=== PATIENT | male | born 1995 | race African-American/Black ===

== ENCOUNTER 2023-07-06 16:22 | Inpatient (IN) ==
[2023-07-06 20:25] LABS: Appearance Urine Clear (Clear); Bilirubin Urine Negative (Negative); Blood Urine Negative (Negative); Color Urine Dark Yellow; Glucose Urine UA Negative (Negative); Ketones Urine Negative (Negative); Leukocyte Esterase Urine Negative (Negative); Nitrite Urine Negative (Negative); Protein Urine Negative (Negative); Urobilinogen Urine Positive (Negative)
[2023-07-06 20:26] LABS: Basophils # (auto) 0.05 K/uL (0.00-0.20); Basophils % (auto) 0.5 %; Eosinophils # (auto) 0.37 K/uL (0.00-0.50); Eosinophils % (auto) 3.7 %; Hematocrit (blood only) 24.7 % (42.0-52.0); Hemoglobin 9.1 g/dl (14.0-18.0); Immature Granulocytes # (auto) 0.05 K/uL (0.01-0.20); Immature Granulocytes % (auto) 0.5 %; Lymphocytes % (auto) 39.3 %; Mean Corpuscular Hemoglobin 38.1 pg (25.0-34.0); Mean Corpuscular Hgb Conc 36.8 g/dL (32.0-36.0); Mean Corpuscular Volume 103.3 fL (80.0-100.0); Mean Platelet Volume 10.8 fL (9.4-12.4); Monocytes # (auto) 1.05 K/uL (0.11-0.59); Monocytes % (auto) 10.6 %; Neutrophils % (auto) 45.4 %; Nucleated RBC # (auto) 0.28 K/uL (0.00-0.12); Nucleated RBC % (auto) 2.8 %; Platelet Count 361 K/uL (130-400); RDW Coefficient of Variation 20.2 % (11.5-14.5); RDW Standard Deviation 73.9 fL (36.4-46.3); Red Blood Count 2.39 M/uL (4.70-6.10); White Blood Count 9.92 K/ul (4.8-10.8)
[2023-07-06 20:34] LABS: Alanine Aminotransferase 29 U/L (7-52); Albumin Globulin Ratio 1.6 (0.9-2); Albumin Level 4.4 gm/dl (3.4-5.0); Alkaline Phosphatase 65 U/L (34-104); Anion Gap 7 (3-11); Aspartate Aminotransferase 32 U/L (13-39); BUN Creatinine Ratio 12.3 (10-20); Bilirubin,Total 14.7 mg/dl (0.2-1.0); Blood Urea Nitrogen 8 mg/dl (6-23); Calcium 9.2 mg/dl (8.6-10.3); Carbon Dioxide 24 mmol/L (21-32); Chloride 108 mmol/L (98-107); Creatinine Clr Calc Pharmacy 158.4 ml/min; Est GFR (African American) > 150.0 ml/min; Est GFR (Non-African American) 132.4 ml/min; Globulin 2.7 gm/dl (2.5-4.0); Glucose 102 mg/dl (70-99(Fasting)); Potassium 3.9 mmol/L (3.5-5.1); Sodium 139 mmol/L (136-145); Total Protein 7.1 gm/dl (6.0-8.3)
[2023-07-06 20:50] LABS: Anisocytosis Present; Basophilic Stippling 1+; Polychromasia 1+; Sickle Cells 3+; Target Cells 1+
[2023-07-06] MEDS ORDERED: NICOTINE 21 MG/24 HR TDSY TD STA (21:53)
[2023-07-06] MEDS ORDERED: SODIUM CHLORIDE 0.9% 1000ML 1,000 ML IV SCH (22:00)
--- NOTE | 2023-07-06 22:04 | Emergency Department Note ---
History of Present Illness General Chief complaint: Headache Stated complaint: HEADACHE Time Seen by Provider: 07/06/23 21:43 History of Present Illness This is a 27-year-old male presenting to the emergency department for evaluation of likely seizure episode. Patient had a witnessed event by his girlfriend whe re he pulled into a contractured position, and reportedly his eyes rolled back into his head. This lasted for several minutes and girlfriend contacted 911. For EMS the patient was postictal, and slowly returned to normal mental status after 15 to 20 minutes. Patient does not have a history of seizures, but does have a history of at least sickle cell trait. He has been seen several times this week in the ER after a very low mechanism head injury and possible concussion. Patient has not had fevers or chills. No significant chest pain, chest tightness, shortness of breath, or abdominal pain. He did not bite his tongue or urinate himself. He does not take medication on a regular basis. Patient has had headache symptoms over the past week and has been evaluated multiple times in this department for this. Earlier evaluation does include imaging including MRI without acute process. Home Medications Medication Instructions Recorded Confirmed Type No Known Home Medications 06/28/23 07/07/23 History Allergies Allergy/AdvReac Type Severity Reaction Status Date / Time No Known Allergies Allergy Verified 07/07/23 01:39 Past Med/Surg History Medical History Sickle cell disease Surgical History No pertinent past surgical history Social History Smoking Status: Current every day smoker Tobacco Type: E-cigarettes / Vaping Preferred Language: Lithuanian Feels Safe at Home: Yes Review of Systems A total of 10 systems reviewed and were otherwise negative Physical Exam Vital Signs Vital Signs - 24 hr 07/06/23 16:29 07/06/23 16:50 07/06/23 16:50 Temperature 36.9 C 36.9 C Temperature Source Oral Oral Pulse Rate 72 65 Pulse Rate [Right Finger] 65 Pulse Rate from SpO2 Sensor Pulse Rhythm Regular Pulse Rhythm [Right Finger] Regular Pulse Strength Normal Pulse Strength [Right Finger] Normal Respiratory Rate 16 16 Respiratory Effort / Characteristics Non-Labored Spontaneous Non-Labored Spontaneous Respiratory Depth Normal Normal Respiratory Pattern Regular Regular Blood Pressure 148/63 H Blood Pressure [Right Arm] 148/63 H Blood Pressure Mean 91 Blood Pressure Mean [Right Arm] 91 Blood Pressure Position Lying Blood Pressure Position [Right Arm] Semi-fowlers Pulse Oximetry 95 95 Oxygen Delivery Method Room Air Room Air Sepsis Recent Fever Within 48 Hours No Sepsis New/Unexplained Change in Mental Status No Sepsis Action Taken by Nursing No Action Required 07/06/23 20:06 07/06/23 20:25 07/06/23 22:00 Temperature 36.7 C 36.7 C Temperature Source Oral Oral Pulse Rate 59 L Pulse Rate [Right Finger] 75 75 Pulse Rate from SpO2 Sensor Pulse Rhythm Pulse Rhythm [Right Finger] Regular Regular Pulse Strength Pulse Strength [Right Finger] Normal Normal Respiratory Rate 18 18 Respiratory Effort / Characteristics Non-Labored Spontaneous Non-Labored Spontaneous Respiratory Depth Normal Normal Respiratory Pattern Regular Regular Blood Pressure Blood Pressure [Right Arm] 132/72 145/76 H Blood Pressure Mean Blood Pressure Mean [Right Arm] 92 99 Blood Pressure Position Blood Pressure Position [Right Arm] Semi-fowlers Semi-fowlers Pulse Oximetry 98 98 Oxygen Delivery Method Room Air Room Air Sepsis Recent Fever Within 48 Hours Sepsis New/Unexplained Change in Mental Status Sepsis Action Taken by Nursing 07/07/23 00:18 07/06/23 16:30 07/06/23 17:00 Temperature Temperature Source Pulse Rate 64 76 Pulse Rate [Right Finger] Pulse Rate from SpO2 Sensor 76 Pulse Rhythm Pulse Rhythm [Right Finger] Pulse Strength Pulse Strength [Right Finger] Respiratory Rate 16 Respiratory Effort / Characteristics Respiratory Depth Respiratory Pattern Blood Pressure 120/75 Blood Pressure [Right Arm] Blood Pressure Mean 78 Blood Pressure Mean [Right Arm] Blood Pressure Position Blood Pressure Position [Right Arm] Pulse Oximetry 96 Oxygen Delivery Method Sepsis Recent Fever Within 48 Hours Sepsis New/Unexplained Change in Mental Status Sepsis Action Taken by Nursing 07/06/23 17:00 07/06/23 17:30 07/06/23 18:00 Temperature Temperature Source Pulse Rate 64 66 Pulse Rate [Right Finger] Pulse Rate from SpO2 Sensor 66 66 Pulse Rhythm Pulse Rhythm [Right Finger] Pulse Strength Pulse Strength [Right Finger] Respiratory Rate 18 19 Respiratory Effort / Characteristics Respiratory Depth Respiratory Pattern Blood Pressure 122/58 L Blood Pressure [Right Arm] Blood Pressure Mean 75 Blood Pressure Mean [Right Arm] Blood Pressure Position Blood Pressure Position [Right Arm] Pulse Oximetry 96 94 Oxygen Delivery Method Sepsis Recent Fever Within 48 Hours Sepsis New/Unexplained Change in Mental Status Sepsis Action Taken by Nursing 07/06/23 18:00 07/06/23 18:00 07/06/23 18:30 Temperature Temperature Source Pulse Rate 61 62 Pulse Rate [Right Finger] Pulse Rate from SpO2 Sensor 61 62 Pulse Rhythm Pulse Rhythm [Right Finger] Pulse Strength Pulse Strength [Right Finger] Respiratory Rate 26 H 19 Respiratory Effort / Characteristics Respiratory Depth Respiratory Pattern Blood Pressure 122/58 L Blood Pressure [Right Arm] Blood Pressure Mean 75 Blood Pressure Mean [Right Arm] Blood Pressure Position Blood Pressure Position [Right Arm] Pulse Oximetry 93 95 Oxygen Delivery Method Sepsis Recent Fever Within 48 Hours Sepsis New/Unexplained Change in Mental Status Sepsis Action Taken by Nursing 07/06/23 19:00 07/06/23 19:00 07/06/23 19:30 Temperature Temperature Source Pulse Rate 60 61 Pulse Rate [Right Finger] Pulse Rate from SpO2 Sensor 62 60 Pulse Rhythm Pulse Rhythm [Right Finger] Pulse Strength Pulse Strength [Right Finger] Respiratory Rate 19 23 Respiratory Effort / Characteristics Respiratory Depth Respiratory Pattern Blood Pressure 113/64 Blood Pressure [Right Arm] Blood Pressure Mean 77 Blood Pressure Mean [Right Arm] Blood Pressure Position Blood Pressure Position [Right Arm] Pulse Oximetry 95 95 Oxygen Delivery Method Sepsis Recent Fever Within 48 Hours Sepsis New/Unexplained Change in Mental Status Sepsis Action Taken by Nursing 07/06/23 20:00 07/06/23 20:00 07/06/23 20:30 Temperature Temperature Source Pulse Rate 58 L 59 L Pulse Rate [Right Finger] Pulse Rate from SpO2 Sensor 57 L 61 Pulse Rhythm Pulse Rhythm [Right Finger] Pulse Strength Pulse Strength [Right Finger] Respiratory Rate 20 17 Respiratory Effort / Characteristics Respiratory Depth Respiratory Pattern Blood Pressure 125/61 Blood Pressure [Right Arm] Blood Pressure Mean 84 Blood Pressure Mean [Right Arm] Blood Pressure Position Blood Pressure Position [Right Arm] Pulse Oximetry 94 96 Oxygen Delivery Method Sepsis Recent Fever Within 48 Hours Sepsis New/Unexplained Change in Mental Status Sepsis Action Taken by Nursing 07/06/23 21:00 07/06/23 21:00 07/06/23 21:30 Temperature Temperature Source Pulse Rate 56 L 72 Pulse Rate [Right Finger] Pulse Rate from SpO2 Sensor 56 L 69 Pulse Rhythm Pulse Rhythm [Right Finger] Pulse Strength Pulse Strength [Right Finger] Respiratory Rate 19 20 Respiratory Effort / Characteristics Respiratory Depth Respiratory Pattern Blood Pressure 104/58 L Blood Pressure [Right Arm] Blood Pressure Mean 68 Blood Pressure Mean [Right Arm] Blood Pressure Position Blood Pressure Position [Right Arm] Pulse Oximetry 94 92 Oxygen Delivery Method Sepsis Recent Fever Within 48 Hours Sepsis New/Unexplained Change in Mental Status Sepsis Action Taken by Nursing 07/06/23 22:00 07/06/23 22:00 07/06/23 22:30 Temperature Temperature Source Pulse Rate 55 L 59 L Pulse Rate [Right Finger] Pulse Rate from SpO2 Sensor 56 L 59 L Pulse Rhythm Pulse Rhythm [Right Finger] Pulse Strength Pulse Strength [Right Finger] Respiratory Rate 10 L 13 Respiratory Effort / Characteristics Respiratory Depth Respiratory Pattern Blood Pressure 145/78 H Blood Pressure [Right Arm] Blood Pressure Mean 100 Blood Pressure Mean [Right Arm] Blood Pressure Position Blood Pressure Position [Right Arm] Pulse Oximetry 97 99 Oxygen Delivery Method Sepsis Recent Fever Within 48 Hours Sepsis New/Unexplained Change in Mental Status Sepsis Action Taken by Nursing 07/06/23 23:00 07/06/23 23:15 07/06/23 23:15 Temperature Temperature Source Pulse Rate 61 66 Pulse Rate [Right Finger] Pulse Rate from SpO2 Sensor 61 Pulse Rhythm Pulse Rhythm [Right Finger] Pulse Strength Pulse Strength [Right Finger] Respiratory Rate 18 14 Respiratory Effort / Characteristics Respiratory Depth Respiratory Pattern Blood Pressure 140/48 L Blood Pressure [Right Arm] Blood Pressure Mean 76 Blood Pressure Mean [Right Arm] Blood Pressure Position Blood Pressure Position [Right Arm] Pulse Oximetry 97 Oxygen Delivery Method Sepsis Recent Fever Within 48 Hours Sepsis New/Unexplained Change in Mental Status Sepsis Action Taken by Nursing 07/06/23 23:30 07/07/23 00:00 07/07/23 00:04 Temperature Temperature Source Pulse Rate 65 66 69 Pulse Rate [Right Finger] Pulse Rate from SpO2 Sensor 70 62 66 Pulse Rhythm Pulse Rhythm [Right Finger] Pulse Strength Pulse Strength [Right Finger] Respiratory Rate 14 19 18 Respiratory Effort / Characteristics Respiratory Depth Respiratory Pattern Blood Pressure Blood Pressure [Right Arm] Blood Pressure Mean Blood Pressure Mean [Right Arm] Blood Pressure Position Blood Pressure Position [Right Arm] Pulse Oximetry 97 93 91 Oxygen Delivery Method Sepsis Recent Fever Within 48 Hours Sepsis New/Unexplained Change in Mental Status Sepsis Action Taken by Nursing 07/07/23 00:04 07/07/23 00:30 Temperature Temperature Source Pulse Rate 68 Pulse Rate [Right Finger] Pulse Rate from SpO2 Sensor 67 Pulse Rhythm Pulse Rhythm [Right Finger] Pulse Strength Pulse Strength [Right Finger] Respiratory Rate 28 H Respiratory Effort / Characteristics Respiratory Depth Respiratory Pattern Blood Pressure 113/71 Blood Pressure [Right Arm] Blood Pressure Mean 82 Blood Pressure Mean [Right Arm] Blood Pressure Position Blood Pressure Position [Right Arm] Pulse Oximetry 96 Oxygen Delivery Method Sepsis Recent Fever Within 48 Hours Sepsis New/Unexplained Change in Mental Status Sepsis Action Taken by Nursing VITALS: Vitals are noted on the nurse's note and reviewed by myself. Vital signs stable. GENERAL: Well-developed, well-nourished, black male, who is in no acute distress and resting comfortably. Patient is cooperative with the examination. HEAD: Normocephalic atraumatic. EARS: External ear normal. External auditory canals clear, tympanic membranes pearly storey without erythema or effusion bilaterally. EYES: Pupils equal round and reactive to light and accommodation. Conjunctivae with scleral icterus NOSE: Patent, turbinates without inflammation or discharge. MOUTH: Mucous membranes moist. Tonsils are not enlarged. Pharynx without erythema, blood, or exudate. Uvula midline. Airway patent. NECK: Supple without nuchal rigidity. No lymphadenopathy. No thyromegaly. Cervical spine is nontender. HEART: Regular rate and rhythm without murmurs gallops or rubs. LUNGS: Clear to auscultation bilaterally without wheezes, rales or rhonchi. No retractions or accessory muscle use. ABDOMEN: Positive normal bowel sounds x 4. Soft, nontender, without masses or organomegaly. No guarding or rebound tenderness. MUSCULOSKELETAL: No muscle atrophy, erythema, or edema noted. Full range of motion in all extremities. NEURO: Patient was alert and oriented to person place and time. CN II through XII grossly intact. GCS 15. Course Administered Medications Discontinued Medications Sodium Chloride (Nss 1000ml) 1,000 mls @ 999 mls/hr IV .[id number] AMADO Stop: 07/06/23 23:00 Last Infusion: 07/07/23 00:31 Dose: 0 mls/hr Documented By: Admin: 07/06/23 22:24 Dose: 999 mls/hr Documented By: MOLLY Ioversol (Ioversol 350 Mg 125ml Prefilled Syringe) 125 ml IV ONCE ONE Stop: 07/06/23 22:47 Last Admin: 07/06/23 22:47 Dose: 117 ml Documented By: ROSEMARY Nicotine (Nicotine 21 Mg/24 Hr Tdsy) 21 mg TD NOW STA Stop: 07/06/23 21:54 Last Admin: 07/06/23 22:24 Dose: 21 mg Documented By: MOLLY Medical Decision Making Differential Diagnosis Differential diagnosis: Etiologies such as seizure, stroke, substance abuse, sickle cell crisis, vasovagal event, infection, anemia, hypoglycemia, hypovolemia, electrolyte abnormalities, dysrhythmias, cardiac ischemia, cardiac tamponade, valvular heart disease, structural heart disease, seizure, vascular stenosis/dissection, pulmonary embolism, intracerebral event, toxicological process, neurologic event, as well as others were entertained. Laboratory Data 07/06/23 16:35 07/06/23 16:35 Lab Results 07/06/23 07/06/23 07/06/23 Range/Units 16:35 16:35 18:34 WBC 9.92 (4.8-10.8) K/ul RBC 2.39 L (4.70-6.10) M/uL Hgb 9.1 L (14.0-18.0) g/dl Hct 24.7 L (42.0-52.0) % MCV 103.3 H (80.0-100.0) fL MCH 38.1 H (25.0-34.0) pg MCHC 36.8 H (32.0-36.0) g/dL RDW Std Deviation 73.9 H (36.4-46.3) fL RDW Coeff of Luis 20.2 H (11.5-14.5) % Plt Count 361 (130-400) K/uL MPV 10.8 (9.4-12.4) fL Immature Gran % (Auto) 0.5 % Neut % (Auto) 45.4 % Lymph % (Auto) 39.3 % Richardson % (Auto) 10.6 % Eos % (Auto) 3.7 % Baso % (Auto) 0.5 % Reticulocyte % (Auto) 17.2 H (0.5-2.0) % Neut # (Auto) 4.50 (1.40-6.50) K/uL Lymph # (Auto) 3.90 H (1.20-3.40) K/uL Richardson # (Auto) 1.05 H (0.11-0.59) K/uL Eos # (Auto) 0.37 (0.00-0.50) K/uL Baso # (Auto) 0.05 (0.00-0.20) K/uL Reticulocyte # 0.40 H (0.02-0.10) 10^6/uL Immature Gran # (Auto) 0.05 (0.01-0.20) K/uL Absolute Nucleated RBC 0.28 H (0.00-0.12) K/uL Nucleated RBC % (auto) 2.8 % Polychromasia 1+ Basophilic Stippling 1+ Anisocytosis Present Sickle Cells 3+ Target Cells 1+ PT (9.0-12.0) Seconds INR (0.9-1.1) APTT (21.0-31.0) Seconds PTT Ratio Sodium 139 (136-145) mmol/L Potassium 3.9 (3.5-5.1) mmol/L Chloride 108 H (98-107) mmol/L Carbon Dioxide 24 (21-32) mmol/L Anion Gap 7 (3-11) BUN 8 (6-23) mg/dl Creatinine 0.65 (0.6-1.4) mg/dl Est Cr Clr Drug Dosing 158.4 ml/min Est GFR ( Amer) > 150.0 ml/min Est GFR (Non-Af Amer) 132.4 ml/min BUN/Creatinine Ratio 12.3 (10-20) Glucose 102 H (70-99(Fasting)) mg/dl Calcium 9.2 (8.6-10.3) mg/dl Magnesium (1.7-2.4) mg/dl Total Bilirubin 14.7 H (0.2-1.0) mg/dl AST 32 (13-39) U/L ALT 29 (7-52) U/L Alkaline Phosphatase 65 (34-104) U/L Ammonia Troponin I High Sens (0-20) pg/ml Total Protein 7.1 (6.0-8.3) gm/dl Albumin 4.4 (3.4-5.0) gm/dl Globulin 2.7 (2.5-4.0) gm/dl Albumin/Globulin Ratio 1.6 (0.9-2) Urine Color Dark Yellow Urine Appearance Clear (Clear) Urine pH 7.0 (4.5-7.5) Ur Specific [place] 1.010 (1.000-1.030) Urine Protein Negative (Negative) Urine Glucose (UA) Negative (Negative) Urine Ketones Negative (Negative) Urine Blood Negative (Negative) Urine Nitrite Negative (Negative) Urine Bilirubin Negative (Negative) Urine Urobilinogen Positive H (Negative) Ur Leukocyte Esterase Negative (Negative) Urine Opiates Screen (Neg) Ur Methadone, Qual (Neg) Urine Barbiturates (Neg) Ur Phencyclidine (PCP) (Neg) U Amphetamin/Meth Scrn (Neg) MDMA (Ecstasy) Screen (Neg) U Benzodiazepines Scrn (Neg) Ur Cocaine Metabolite (Neg) U Marijuana (THC) Screen (Neg) Ethyl Alcohol mg/dL (<10.0) mg/dl Adenovirus (PCR) (NotDetected) B. pertussis DNA (PCR) (NotDetected) B.parapertussis DNA PCR (NotDetected) Lyme Disease IgG Ab (Negative) Lyme Disease IgM Ab (Negative) C. pneumoniae DNA (PCR) (NotDetected) Coronavirus OC43 (PCR) (NotDetected) Coronavirus HKU1 (PCR) (NotDetected) Coronavirus 229E (PCR) (NotDetected) SARS-CoV-2 (PCR) (NotDetected) Coronavirus NL63 (PCR) (NotDetected) Human Metapneumovir PCR (NotDetected) Influenza Type A (PCR) (NotDetected) Influenza Type B (PCR) (NotDetected) M. pneumoniae (PCR) (NotDetected) Parainfluenza 1 (PCR) (NotDetected) Parainfluenza 2 (PCR) (NotDetected) Parainfluenza 3 (PCR) (NotDetected) Parainfluenza 4 (PCR) (NotDetected) RSV (PCR) (NotDetected) Entero/Rhino (PCR) (NotDetected) 07/06/23 07/06/23 07/06/23 Range/Units 18:34 22:25 23:36 WBC (4.8-10.8) K/ul RBC (4.70-6.10) M/uL Hgb (14.0-18.0) g/dl Hct (42.0-52.0) % MCV (80.0-100.0) fL MCH (25.0-34.0) pg MCHC (32.0-36.0) g/dL RDW Std Deviation (36.4-46.3) fL RDW Coeff of Luis (11.5-14.5) % Plt Count (130-400) K/uL MPV (9.4-12.4) fL Immature Gran % (Auto) % Neut % (Auto) % Lymph % (Auto) % Richardson % (Auto) % Eos % (Auto) % Baso % (Auto) % Reticulocyte % (Auto) (0.5-2.0) % Neut # (Auto) (1.40-6.50) K/uL Lymph # (Auto) (1.20-3.40) K/uL Richardson # (Auto) (0.11-0.59) K/uL Eos # (Auto) (0.00-0.50) K/uL Baso # (Auto) (0.00-0.20) K/uL Reticulocyte # (0.02-0.10) 10^6/uL Immature Gran # (Auto) (0.01-0.20) K/uL Absolute Nucleated RBC (0.00-0.12) K/uL Nucleated RBC % (auto) % Polychromasia Basophilic Stippling Anisocytosis Sickle Cells Target Cells PT (9.0-12.0) Seconds INR (0.9-1.1) APTT (21.0-31.0) Seconds PTT Ratio Sodium (136-145) mmol/L Potassium (3.5-5.1) mmol/L Chloride (98-107) mmol/L Carbon Dioxide (21-32) mmol/L Anion Gap (3-11) BUN (6-23) mg/dl Creatinine (0.6-1.4) mg/dl Est Cr Clr Drug Dosing ml/min Est GFR ( Amer) ml/min Est GFR (Non-Af Amer) ml/min BUN/Creatinine Ratio (10-20) Glucose (70-99(Fasting)) mg/dl Calcium (8.6-10.3) mg/dl Magnesium (1.7-2.4) mg/dl Total Bilirubin (0.2-1.0) mg/dl AST (13-39) U/L ALT (7-52) U/L Alkaline Phosphatase (34-104) U/L Ammonia Troponin I High Sens (0-20) pg/ml Total Protein (6.0-8.3) gm/dl Albumin (3.4-5.0) gm/dl Globulin (2.5-4.0) gm/dl Albumin/Globulin Ratio (0.9-2) Urine Color Urine Appearance (Clear) Urine pH (4.5-7.5) Ur Specific [place] (1.000-1.030) Urine Protein (Negative) Urine Glucose (UA) (Negative) Urine Ketones (Negative) Urine Blood (Negative) Urine Nitrite (Negative) Urine Bilirubin (Negative) Urine Urobilinogen (Negative) Ur Leukocyte Esterase (Negative) Urine Opiates Screen Neg (Neg) Ur Methadone, Qual Neg (Neg) Urine Barbiturates Neg (Neg) Ur Phencyclidine (PCP) Neg (Neg) U Amphetamin/Meth Scrn Neg (Neg) MDMA (Ecstasy) Screen Neg (Neg) U Benzodiazepines Scrn Neg (Neg) Ur Cocaine Metabolite Neg (Neg) U Marijuana (THC) Screen Pos H (Neg) Ethyl Alcohol mg/dL < 10.0 (<10.0) mg/dl Adenovirus (PCR) Not Detected (NotDetected) B. pertussis DNA (PCR) Not Detected (NotDetected) B.parapertussis DNA PCR Not Detected (NotDetected) Lyme Disease IgG Ab (Negative) Lyme Disease IgM Ab (Negative) C. pneumoniae DNA (PCR) Not Detected (NotDetected) Coronavirus OC43 (PCR) Not Detected (NotDetected) Coronavirus HKU1 (PCR) Not Detected (NotDetected) Coronavirus 229E (PCR) Not Detected (NotDetected) SARS-CoV-2 (PCR) Not Detected (NotDetected) Coronavirus NL63 (PCR) Not Detected (NotDetected) Human Metapneumovir PCR Not Detected (NotDetected) Influenza Type A (PCR) Not Detected (NotDetected) Influenza Type B (PCR) Not Detected (NotDetected) M. pneumoniae (PCR) Not Detected (NotDetected) Parainfluenza 1 (PCR) Not Detected (NotDetected) Parainfluenza 2 (PCR) Not Detected (NotDetected) Parainfluenza 3 (PCR) Not Detected (NotDetected) Parainfluenza 4 (PCR) Not Detected (NotDetected) RSV (PCR) Not Detected (NotDetected) Entero/Rhino (PCR) Not Detected (NotDetected) 07/06/23 07/06/23 07/06/23 Range/Units 23:36 23:36 23:36 WBC (4.8-10.8) K/ul RBC (4.70-6.10) M/uL Hgb (14.0-18.0) g/dl Hct (42.0-52.0) % MCV (80.0-100.0) fL MCH (25.0-34.0) pg MCHC (32.0-36.0) g/dL RDW Std Deviation (36.4-46.3) fL RDW Coeff of Luis (11.5-14.5) % Plt Count (130-400) K/uL MPV (9.4-12.4) fL Immature Gran % (Auto) % Neut % (Auto) % Lymph % (Auto) % Richardson % (Auto) % Eos % (Auto) % Baso % (Auto) % Reticulocyte % (Auto) (0.5-2.0) % Neut # (Auto) (1.40-6.50) K/uL Lymph # (Auto) (1.20-3.40) K/uL Richardson # (Auto) (0.11-0.59) K/uL Eos # (Auto) (0.00-0.50) K/uL Baso # (Auto) (0.00-0.20) K/uL Reticulocyte # (0.02-0.10) 10^6/uL Immature Gran # (Auto) (0.01-0.20) K/uL Absolute Nucleated RBC (0.00-0.12) K/uL Nucleated RBC % (auto) % Polychromasia Basophilic Stippling Anisocytosis Sickle Cells Target Cells PT 12.0 (9.0-12.0) Seconds INR 1.1 (0.9-1.1) APTT 23.9 (21.0-31.0) Seconds PTT Ratio 0.8 Sodium (136-145) mmol/L Potassium (3.5-5.1) mmol/L Chloride (98-107) mmol/L Carbon Dioxide (21-32) mmol/L Anion Gap (3-11) BUN (6-23) mg/dl Creatinine (0.6-1.4) mg/dl Est Cr Clr Drug Dosing ml/min Est GFR ( Amer) ml/min Est GFR (Non-Af Amer) ml/min BUN/Creatinine Ratio (10-20) Glucose (70-99(Fasting)) mg/dl Calcium (8.6-10.3) mg/dl Magnesium 2.0 (1.7-2.4) mg/dl Total Bilirubin (0.2-1.0) mg/dl AST (13-39) U/L ALT (7-52) U/L Alkaline Phosphatase (34-104) U/L Ammonia TNP Troponin I High Sens 6.9 (0-20) pg/ml Total Protein (6.0-8.3) gm/dl Albumin (3.4-5.0) gm/dl Globulin (2.5-4.0) gm/dl Albumin/Globulin Ratio (0.9-2) Urine Color Urine Appearance (Clear) Urine pH (4.5-7.5) Ur Specific [place] (1.000-1.030) Urine Protein (Negative) Urine Glucose (UA) (Negative) Urine Ketones (Negative) Urine Blood (Negative) Urine Nitrite (Negative) Urine Bilirubin (Negative) Urine Urobilinogen (Negative) Ur Leukocyte Esterase (Negative) Urine Opiates Screen (Neg) Ur Methadone, Qual (Neg) Urine Barbiturates (Neg) Ur Phencyclidine (PCP) (Neg) U Amphetamin/Meth Scrn (Neg) MDMA (Ecstasy) Screen (Neg) U Benzodiazepines Scrn (Neg) Ur Cocaine Metabolite (Neg) U Marijuana (THC) Screen (Neg) Ethyl Alcohol mg/dL (<10.0) mg/dl Adenovirus (PCR) (NotDetected) B. pertussis DNA (PCR) (NotDetected) B.parapertussis DNA PCR (NotDetected) Lyme Disease IgG Ab (Negative) Lyme Disease IgM Ab (Negative) C. pneumoniae DNA (PCR) (NotDetected) Coronavirus OC43 (PCR) (NotDetected) Coronavirus HKU1 (PCR) (NotDetected) Coronavirus 229E (PCR) (NotDetected) SARS-CoV-2 (PCR) (NotDetected) Coronavirus NL63 (PCR) (NotDetected) Human Metapneumovir PCR (NotDetected) Influenza Type A (PCR) (NotDetected) Influenza Type B (PCR) (NotDetected) M. pneumoniae (PCR) (NotDetected) Parainfluenza 1 (PCR) (NotDetected) Parainfluenza 2 (PCR) (NotDetected) Parainfluenza 3 (PCR) (NotDetected) Parainfluenza 4 (PCR) (NotDetected) RSV (PCR) (NotDetected) Entero/Rhino (PCR) (NotDetected) 07/06/23 Range/Units 23:36 WBC (4.8-10.8) K/ul RBC (4.70-6.10) M/uL Hgb (14.0-18.0) g/dl Hct (42.0-52.0) % MCV (80.0-100.0) fL MCH (25.0-34.0) pg MCHC (32.0-36.0) g/dL RDW Std Deviation (36.4-46.3) fL RDW Coeff of Luis (11.5-14.5) % Plt Count (130-400) K/uL MPV (9.4-12.4) fL Immature Gran % (Auto) % Neut % (Auto) % Lymph % (Auto) % Richardson % (Auto) % Eos % (Auto) % Baso % (Auto) % Reticulocyte % (Auto) (0.5-2.0) % Neut # (Auto) (1.40-6.50) K/uL Lymph # (Auto) (1.20-3.40) K/uL Richardson # (Auto) (0.11-0.59) K/uL Eos # (Auto) (0.00-0.50) K/uL Baso # (Auto) (0.00-0.20) K/uL Reticulocyte # (0.02-0.10) 10^6/uL Immature Gran # (Auto) (0.01-0.20) K/uL Absolute Nucleated RBC (0.00-0.12) K/uL Nucleated RBC % (auto) % Polychromasia Basophilic Stippling Anisocytosis Sickle Cells Target Cells PT (9.0-12.0) Seconds INR (0.9-1.1) APTT (21.0-31.0) Seconds PTT Ratio Sodium (136-145) mmol/L Potassium (3.5-5.1) mmol/L Chloride (98-107) mmol/L Carbon Dioxide (21-32) mmol/L Anion Gap (3-11) BUN (6-23) mg/dl Creatinine (0.6-1.4) mg/dl Est Cr Clr Drug Dosing ml/min Est GFR ( Amer) ml/min Est GFR (Non-Af Amer) ml/min BUN/Creatinine Ratio (10-20) Glucose (70-99(Fasting)) mg/dl Calcium (8.6-10.3) mg/dl Magnesium (1.7-2.4) mg/dl Total Bilirubin (0.2-1.0) mg/dl AST (13-39) U/L ALT (7-52) U/L Alkaline Phosphatase (34-104) U/L Ammonia Troponin I High Sens (0-20) pg/ml Total Protein (6.0-8.3) gm/dl Albumin (3.4-5.0) gm/dl Globulin (2.5-4.0) gm/dl Albumin/Globulin Ratio (0.9-2) Urine Color Urine Appearance (Clear) Urine pH (4.5-7.5) Ur Specific [place] (1.000-1.030) Urine Protein (Negative) Urine Glucose (UA) (Negative) Urine Ketones (Negative) Urine Blood (Negative) Urine Nitrite (Negative) Urine Bilirubin (Negative) Urine Urobilinogen (Negative) Ur Leukocyte Esterase (Negative) Urine Opiates Screen (Neg) Ur Methadone, Qual (Neg) Urine Barbiturates (Neg) Ur Phencyclidine (PCP) (Neg) U Amphetamin/Meth Scrn (Neg) MDMA (Ecstasy) Screen (Neg) U Benzodiazepines Scrn (Neg) Ur Cocaine Metabolite (Neg) U Marijuana (THC) Screen (Neg) Ethyl Alcohol mg/dL (<10.0) mg/dl Adenovirus (PCR) (NotDetected) B. pertussis DNA (PCR) (NotDetected) B.parapertussis DNA PCR (NotDetected) Lyme Disease IgG Ab Negative (Negative) Lyme Disease IgM Ab Negative (Negative) C. pneumoniae DNA (PCR) (NotDetected) Coronavirus OC43 (PCR) (NotDetected) Coronavirus HKU1 (PCR) (NotDetected) Coronavirus 229E (PCR) (NotDetected) SARS-CoV-2 (PCR) (NotDetected) Coronavirus NL63 (PCR) (NotDetected) Human Metapneumovir PCR (NotDetected) Influenza Type A (PCR) (NotDetected) Influenza Type B (PCR) (NotDetected) M. pneumoniae (PCR) (NotDetected) Parainfluenza 1 (PCR) (NotDetected) Parainfluenza 2 (PCR) (NotDetected) Parainfluenza 3 (PCR) (NotDetected) Parainfluenza 4 (PCR) (NotDetected) RSV (PCR) (NotDetected) Entero/Rhino (PCR) (NotDetected) Imaging Data Radiologist's Impression: Head CT 07/06/23 21:53 Exam(s): CT HEAD Without Contrast EXAM: CT Head Without Intravenous Contrast CLINICAL HISTORY: Reason for exam: seizure, hx sickle cell trait. TECHNIQUE: Axial computed tomography images of the head/brain without intravenous contrast. CTDI is 37.32 mGy and DLP is 624.41 mGy-cm. Automated exposure control was utilized for the study. A dose lowering technique was utilized adhering to the principles of ALARA. Mild motion artifact. COMPARISON: None. FINDINGS: Brain: No mass effect or acute infarct. No acute hemorrhage. No abnormal density in the brain parenchyma. Ventricles: No hydrocephalus or midline shift. Bones/joints: No skull fracture. Soft tissues: No scalp hematoma. Sinuses: Clear. Mastoid air cells: No mastoid effusion. IMPRESSION: 1. No acute infarct, bleed, or acute intracranial abnormality. 2. Normal exam. Electronically signed by: Kerline Rutherford M.D. 07/06/23 23:17 PM Head CTA 07/06/23 21:53 Exam(s): CTA HEAD With Contrast IV Amt: 117 ML OPTIRAY 320 EXAM: CT Angiography Head With Intravenous Contrast CLINICAL HISTORY: Reason for exam: seizure, hx sickle cell trait. TECHNIQUE: Axial computed tomographic angiography images of the head with intravenous contrast. CTDI is 31.14 mGy and DLP is 507.91 mGy-cm. Automated exposure control was utilized for the study. A dose lowering technique was utilized adhering to the principles of ALARA. MIP reconstructed images were created and reviewed. Venous contamination limits evaluation for small aneurysm. CONTRAST: Patient received 117 ML OPTIRAY 320 of IV contrast COMPARISON: None. FINDINGS: Right internal carotid artery: Patent. Right anterior cerebral artery: Patent. Right middle cerebral artery: Patent. Right posterior cerebral artery: Patent. Predominant supply via the anterior circulation. Right vertebral artery: Nondominant, probably terminates as a PICA. Left internal carotid artery: Patent. Left anterior cerebral artery: Patent. Left middle cerebral artery: Patent. Left posterior cerebral artery: Patent. Predominant supply via the anterior circulation. Left vertebral artery: Patent. Basilar artery: Patent. Diminutive, due to normal variant anatomy. Other: IMPRESSION: 1. No aneurysm or large vessel occlusion. Electronically signed by: Kerline Rutherford M.D. 07/06/23 23:51 PM Neck CTA 07/06/23 21:53 Exam(s): CTA NECK With Contrast IV Amt: 117 ML OPTIRAY 320 EXAM: CT Angiography Neck With Intravenous Contrast CLINICAL HISTORY: Reason for exam: seizure, hx sickle cell trait. TECHNIQUE: Routine carotid CT angiography protocol was performed with intravenous contrast. NASCET criteria using the distal ICAs for comparison were used for evaluation of stenoses. CTDI is 11.87 mGy and DLP is 507.91 mGy-cm. Automated exposure control was utilized for the study. A dose lowering technique was utilized adhering to the principles of ALARA. MIP reconstructed images were created and reviewed. Venous contamination limits detail. CONTRAST: Patient received 117 ML OPTIRAY 320 of IV contrast COMPARISON: None. FINDINGS: Right common carotid artery: Patent. Right internal carotid artery: Patent. Right vertebral artery: Patent. Left common carotid artery: Patent. Left internal carotid artery: Patent. Left vertebral artery: Patent. Left dominant system. Other: No atherosclerosis, stenosis or vessel narrowing. IMPRESSION: 1. No dissection, occlusion, or significant stenosis. CAROTID STENOSIS REFERENCE USING NASCET CRITERIA: % ICA stenosis = (1 - narrowest ICA diameter/diameter of distal cervical ICA) x 100. Mild - <50% stenosis. Moderate - 50-69% stenosis. Severe - 70-94% stenosis. Near occlusion - 95-99% stenosis. Occluded - 100% stenosis. Electronically signed by: Kerline Rutherford M.D. 07/06/23 23:46 PM MDM Narrative Physical exam and history were performed. Nursing notes, EMR, and Medication List were personally reviewed. No social concerns were identified as barriers to patients care. Patient appears to have had a seizure-like episode at home. By history from girlfriend and EMS this does seem to have been a true seizure episode. Patient has increasing symptoms over the past week and has been seen several times in the ER for various related complaints. Patient was seen during a period of very high ER volume and acuity with extended wait times. Nursing protocol order have been performed and some of these are available for my review at the time of patient encounter. Patient has been in the ER approximately 5 hours prior to my evaluation. An order was placed for continuous cardiac monitoring. The monitor shows a rate of 68 with normal sinus rhythm. Patient's blood work is as above and was reviewed. He does not have a significantly elevated white blood cell count. He is anemic, which does seem chronic and likely secondary to his sickle cell history. Glucose is 102. Total bili is 14.7. Transaminases are not diagnostic. Ammonia was ordered, but is not able to be resulted with our lab due to the elevated bilirubin. Send out ammonia was ordered. Troponin is normal at 6.9. Urine is with no evidence of infection. Drug abuse screen is positive for marijuana. Alcohol is negative. Bio fire is negative. CT scans of the head as well as CT angiograms of the head and neck were performed and reviewed by myself and radiology showing no acute process. Overall the patient does not appear well for discharge home. He seems to have escalating neurologic symptoms without obvious diagnosis. This certainly could be related to his sickle cell status. DL 13 form was completed and faxed to the [facility]. Case was discussed with the on-call hospitalist who agreed to evaluate the patient here in the ER. Please see their dictation for further patient course, plan, and disposition. The chart was completed utilizing [employer] Voice [employer]ognition Software. Grammatical errors, random word insertions, pronoun errors, and incomplete sentences are an occasional consequence of this system due to software limitations, ambient noise, and hardware issues. Any formal questions or concern s about the content, text, or information contained within the body of this dictation should be directly addressed to the provider for clarification. . Impression & Plan Seizure, Altered mental status, Hyperbilirubinemia, Marijuana use Discharge Plan Visit Data Chief Complaint: Headache Stated Complaint: HEADACHE ED Provider: Kenneth Gonzalez ED Midlevel Provider: Madi Blas Discharge Problem: Seizure, Altered mental status, Hyperbilirubinemia, Marijuana use Forms Stand Alone Forms: [facility] [employer] Prescriptions Prescriptions: No Action No Known Home Medications Referrals Referrals: PCP,NO [Primary Care Provider] -
[2023-07-06] MEDS ORDERED: IOVERSOL 350 MG 125mL Prefilled Syringe IV ONE (22:46)
[2023-07-06 22:49] LABS: Reticulocyte % 17.2 % (0.5-2.0)
[2023-07-06 23:11] LABS: Amphetamines+Metham, Urine Neg (Neg); Barbiturates, Urine Neg (Neg); Benzodiazepine, Urine Neg (Neg); Cocaine, Urine Neg (Neg); MDMA (Ecstacy), Urine Neg (Neg); Methadone, Urine Neg (Neg); Opiate, Urine Neg (Neg); Phencyclidine, Urine Neg (Neg)
--- NOTE | 2023-07-06 23:18 | CT Scan Report ---
Exam(s): CT HEAD Without Contrast EXAM: CT Head Without Intravenous Contrast CLINICAL HISTORY: Reason for exam: seizure, hx sickle cell trait. TECHNIQUE: Axial computed tomography images of the head/brain without intravenous contrast. CTDI is 37.32 mGy and DLP is 624.41 mGy-cm. Automated exposure control was utilized for the study. A dose lowering technique was utilized adhering to the principles of ALARA. Mild motion artifact. COMPARISON: None. FINDINGS: Brain: No mass effect or acute infarct. No acute hemorrhage. No abnormal density in the brain parenchyma. Ventricles: No hydrocephalus or midline shift. Bones/joints: No skull fracture. Soft tissues: No scalp hematoma. Sinuses: Clear. Mastoid air cells: No mastoid effusion. IMPRESSION: 1. No acute infarct, bleed, or acute intracranial abnormality. 2. Normal exam. Electronically signed by: Kerline Rutherford M.D. 07/06/23 23:17 PM
[2023-07-06 23:23] LABS: Adenovirus PCR Not Detected (NotDetected); Bordetella parapertussis PCR Not Detected (NotDetected); Bordetella pertussis PCR Not Detected (NotDetected); Chlamydia pneumoniae PCR Not Detected (NotDetected); Coronavirus 229E PCR Not Detected (NotDetected); Coronavirus CoV-2 (COVID19)PCR Not Detected (NotDetected); Coronavirus HKU1 PCR Not Detected (NotDetected); Coronavirus NL63 PCR Not Detected (NotDetected); Coronavirus OC43PCR Not Detected (NotDetected); Human Metapneumovirus PCR Not Detected (NotDetected); Influenza A PCR Not Detected (NotDetected); Influenza B PCR Not Detected (NotDetected); Mycoplasma pneumoniae PCR Not Detected (NotDetected); Parainfluenza Virus 1 PCR Not Detected (NotDetected); Parainfluenza Virus 2 PCR Not Detected (NotDetected); Parainfluenza Virus 3 PCR Not Detected (NotDetected); Parainfluenza Virus 4 PCR Not Detected (NotDetected); Respiratory Syncytial VirusPCR Not Detected (NotDetected); Rhinovirus/Enterovirus PCR Not Detected (NotDetected)
--- NOTE | 2023-07-06 23:47 | CT Scan Report ---
Exam(s): CTA NECK With Contrast IV Amt: 117 ML OPTIRAY 320 EXAM: CT Angiography Neck With Intravenous Contrast CLINICAL HISTORY: Reason for exam: seizure, hx sickle cell trait. TECHNIQUE: Routine carotid CT angiography protocol was performed with intravenous contrast. NASCET criteria using the distal ICAs for comparison were used for evaluation of stenoses. CTDI is 11.87 mGy and DLP is 507.91 mGy-cm. Automated exposure control was utilized for the study. A dose lowering technique was utilized adhering to the principles of ALARA. MIP reconstructed images were created and reviewed. Venous contamination limits detail. CONTRAST: Patient received 117 ML OPTIRAY 320 of IV contrast COMPARISON: None. FINDINGS: Right common carotid artery: Patent. Right internal carotid artery: Patent. Right vertebral artery: Patent. Left common carotid artery: Patent. Left internal carotid artery: Patent. Left vertebral artery: Patent. Left dominant system. Other: No atherosclerosis, stenosis or vessel narrowing. IMPRESSION: 1. No dissection, occlusion, or significant stenosis. CAROTID STENOSIS REFERENCE USING NASCET CRITERIA: % ICA stenosis = (1 - narrowest ICA diameter/diameter of distal cervical ICA) x 100. Mild - <50% stenosis. Moderate - 50-69% stenosis. Severe - 70-94% stenosis. Near occlusion - 95-99% stenosis. Occluded - 100% stenosis. Electronically signed by: Kerline Rutherford M.D. 07/06/23 23:46 PM
--- NOTE | 2023-07-06 23:52 | CT Scan Report ---
Exam(s): CTA HEAD With Contrast IV Amt: 117 ML OPTIRAY 320 EXAM: CT Angiography Head With Intravenous Contrast CLINICAL HISTORY: Reason for exam: seizure, hx sickle cell trait. TECHNIQUE: Axial computed tomographic angiography images of the head with intravenous contrast. CTDI is 31.14 mGy and DLP is 507.91 mGy-cm. Automated exposure control was utilized for the study. A dose lowering technique was utilized adhering to the principles of ALARA. MIP reconstructed images were created and reviewed. Venous contamination limits evaluation for small aneurysm. CONTRAST: Patient received 117 ML OPTIRAY 320 of IV contrast COMPARISON: None. FINDINGS: Right internal carotid artery: Patent. Right anterior cerebral artery: Patent. Right middle cerebral artery: Patent. Right posterior cerebral artery: Patent. Predominant supply via the anterior circulation. Right vertebral artery: Nondominant, probably terminates as a PICA. Left internal carotid artery: Patent. Left anterior cerebral artery: Patent. Left middle cerebral artery: Patent. Left posterior cerebral artery: Patent. Predominant supply via the anterior circulation. Left vertebral artery: Patent. Basilar artery: Patent. Diminutive, due to normal variant anatomy. Other: IMPRESSION: 1. No aneurysm or large vessel occlusion. Electronically signed by: Kerline Rutherford M.D. 07/06/23 23:51 PM
[2023-07-07 00:26] LABS: Troponin I High Sensitivity 6.9 pg/ml (0-20)
[2023-07-07 00:46] LABS: INR 1.1 (0.9-1.1); Partial Thromboplastin Ratio 0.8; Partial Thromboplastin Time 23.9 Seconds (21.0-31.0)
[2023-07-07 01:09] LABS: Lyme Ab IgG w/WB Rflx Negative (Negative)
[2023-07-07 01:10] LABS: Lyme Ab IgM w/WB Rflx Negative (Negative)
--- NOTE | 2023-07-07 02:12 | History & Physical Report ---
Date of Service July 07, 2023 Assessment & Plan (1) Seizure: Plan: History recent cerebral concussion Personal stress from recent injury possibly lowering seizure threshold in a patient with history of sickle cell disease Chronic anemia, hemoglobin at baseline Ongoing vape use Med telemetry Seizure precautions, IV Ativan as needed active seizures IV Keppra 1 dose now for seizure prophylaxis EEG, Brain MRI for new onset seizure work-up Neurology consult Re: New onset seizures Defer decision for AED maintenance therapy to neurologist. DVT prophylaxis. SCDs Re: Recent head trauma with scalp contusion Full code Patient girlfriend requesting update providers. Ms. Milena Mohan, contact #[phone]. Text document was generated using Beepl voice recognition software. It may contain grammatical or spelling errors. Kindly contact undersigned for clarification of any documentation item in question. History of Present Illness Chief Complaint: Seizures as per girlfriend Primary Care Provider: NO PCP History obtained from patient, family, and records. Medical history significant for sickle cell disease, chronic anemia (baseline hemoglobin 9), ongoing vape use. 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 Achy headache symptoms. Dizziness described as lightheadedness. Pheba like he was going to pass out. No chest pain, no SOB. 06/28 Patient consulted ER for persistent headache and memory fog symptoms. CT head and MRV head negative. Patient discharged home. 07/04 Patient returned to ER with persistent symptoms of headache, nausea and confusion. CT head showed right scalp contusion. ER provider mended outpatient referral to a neurologist if with persistent symptoms. As per bolivarfrienmakenzie, patient stressed at home the last couple of days trying to get a referral for a neurologist. Losing some sleep from stress. 2 episodes of "shaking like grand mal seizures" witnessed by girlfriend at patient's home last night. Patient girlfriend has witnessed seizures among epileptic family members in the past. Both episodes lasting about a few minutes. No tongue biting, no incontinence. Patient confused after episode. Patient brought to the ER for evaluation by girlfriend. 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 Allergies Allergy/AdvReac Type Severity Reaction Status Date / Time No Known Allergies Allergy Verified 07/07/23 01:39 Home Medications Medication Instructions Recorded Confirmed Type No Known Home Medications 06/28/23 07/07/23 History Past Med/Surg History Medical History Sickle cell disease Surgical History No pertinent past surgical history Social History Smoking Status: Current every day smoker Tobacco Type: E-cigarettes / Vaping Second Hand Exposure: No; Do You Dip or Chew Tobacco: No; Tobacco Cessation Education Requested by Patient: No Hx Alcohol Use: No Hx Substance Use: Yes Preferred Language: Omani Communication Ability: Effective Towel Sorter Required: No Beliefs That Will Affect Care: None Current Living Situation: Family Current Living Situation Comment: Lives w/ half-brother Other Information That Helps Us Care for You: No Feels Safe at Home: Yes Safety Concerns: Feels Safe At This Time Assistive Devices: None Review of Systems Review of Systems: As per HPI, all other systems reviewed and negative Physical Exam Physical Exam: GENERAL: Comfortable, pleasant, underweight, no respiratory distress SKIN: Pallor, warm HEENT: Pale palpebral conjunctivae, no ptosis, dry buccal mucosa NECK : Supple, no tenderness CHEST : CTA, no tenderness HEART : RRR, systolic murmur ABDOMEN: Healed incisional scars, no distention, nontender EXTREMITIES : No LE swelling/tenderness, no other conspicuous deformities noted NEUROLOGIC : Coherent, no facial asymmetry, no other gross focality Results & Data Results & Data Vital Signs (Past 12 Hours) Vital Signs Temp Pulse Pulse Resp BP BP Pulse Ox 07/07/23 00:30 68 28 H 96 07/07/23 00:04 113/71 07/07/23 00:04 69 18 91 07/07/23 00:00 66 19 93 07/06/23 23:30 65 14 97 07/06/23 23:15 66 14 07/06/23 23:15 140/48 L 07/06/23 23:00 61 18 97 07/06/23 22:30 59 L 13 99 07/06/23 22:00 55 L 10 L 97 07/06/23 22:00 145/78 H 08/28/23 21:30 72 20 92 07/06/23 21:00 56 L 19 94 07/06/23 21:00 104/58 L 07/06/23 20:30 59 L 17 96 07/06/23 20:00 58 L 20 94 07/06/23 20:00 125/61 07/06/23 19:30 61 23 95 07/06/23 19:00 60 19 95 07/06/23 19:00 113/64 07/06/23 18:30 62 19 95 07/06/23 18:00 61 26 H 93 07/06/23 18:00 122/58 L 07/06/23 18:00 122/58 L 07/06/23 17:30 66 19 94 07/06/23 17:00 64 18 96 07/06/23 17:00 120/75 07/06/23 16:30 76 16 96 07/07/23 00:18 64 07/06/23 22:00 36.7 C 75 18 145/76 H 98 07/06/23 20:25 59 L 07/06/23 20:06 36.7 C 75 18 132/72 98 07/06/23 16:50 36.9 C 65 16 148/63 H 95 07/06/23 16:50 36.9 C 65 16 148/63 H 95 07/06/23 16:29 72 O2 Del Method 07/07/23 00:30 07/07/23 00:04 07/07/23 00:04 07/07/23 00:00 07/06/23 23:30 07/06/23 23:15 07/06/23 23:15 07/06/23 23:00 07/06/23 22:30 07/06/23 22:00 07/06/23 22:00 07/06/23 21:30 07/06/23 21:00 07/06/23 21:00 07/06/23 20:30 07/06/23 20:00 07/06/23 20:00 07/06/23 19:30 07/06/23 19:00 07/06/23 19:00 07/06/23 18:30 07/06/23 18:00 07/06/23 18:00 07/06/23 18:00 07/06/23 17:30 07/06/23 17:00 07/06/23 17:00 07/06/23 16:30 07/07/23 00:18 07/06/23 22:00 Room Air 07/06/23 20:25 07/06/23 20:06 Room Air 07/06/23 16:50 Room Air 07/06/23 16:50 Room Air 07/06/23 16:29 Laboratory Results Laboratory Results WBC 9.92 K/ul (4.8-10.8) 07/06/23 16:35 RBC 2.39 M/uL (4.70-6.10) L 07/06/23 16:35 Hgb 9.1 g/dl (14.0-18.0) L 07/06/23 16:35 Hct 24.7 % (42.0-52.0) L 07/06/23 16:35 MCV 103.3 fL (80.0-100.0) H 07/06/23 16:35 MCH 38.1 pg (25.0-34.0) H 07/06/23 16:35 MCHC 36.8 g/dL (32.0-36.0) H 07/06/23 16:35 RDW Std Deviation 73.9 fL (36.4-46.3) H 07/06/23 16:35 RDW Coeff of Luis 20.2 % (11.5-14.5) H 07/06/23 16:35 Plt Count 361 K/uL (130-400) 07/06/23 16:35 MPV 10.8 fL (9.4-12.4) 07/06/23 16:35 Immature Gran % (Auto) 0.5 % 07/06/23 16:35 Neut % (Auto) 45.4 % 07/06/23 16:35 Lymph % (Auto) 39.3 % 07/06/23 16:35 Mcleod % (Auto) 10.6 % 07/06/23 16:35 Eos % (Auto) 3.7 % 07/06/23 16:35 Baso % (Auto) 0.5 % 07/06/23 16:35 Reticulocyte % (Auto) 17.2 % (0.5-2.0) H 07/06/23 16:35 Neut # (Auto) 4.50 K/uL (1.40-6.50) 07/06/23 16:35 Lymph # (Auto) 3.90 K/uL (1.20-3.40) H 07/06/23 16:35 Mcleod # (Auto) 1.05 K/uL (0.11-0.59) H 07/06/23 16:35 Eos # (Auto) 0.37 K/uL (0.00-0.50) 07/06/23 16:35 Baso # (Auto) 0.05 K/uL (0.00-0.20) 07/06/23 16:35 Reticulocyte # 0.40 10^6/uL (0.02-0.10) H 07/06/23 16:35 Immature Gran # (Auto) 0.05 K/uL (0.01-0.20) 07/06/23 16:35 Absolute Nucleated RBC 0.28 K/uL (0.00-0.12) H 07/06/23 16:35 Nucleated RBC % (auto) 2.8 % 07/06/23 16:35 Polychromasia 1+ 07/06/23 16:35 Basophilic Stippling 1+ 07/06/23 16:35 Anisocytosis Present 07/06/23 16:35 Sickle Cells 3+ 07/06/23 16:35 Target Cells 1+ 07/06/23 16:35 PT 12.0 Seconds (9.0-12.0) 07/06/23 23:36 INR 1.1 (0.9-1.1) 07/06/23 23:36 APTT 23.9 Seconds (21.0-31.0) 07/06/23 23:36 PTT Ratio 0.8 07/06/23 23:36 Sodium 139 mmol/L (136-145) 07/06/23 16:35 Potassium 3.9 mmol/L (3.5-5.1) 07/06/23 16:35 Chloride 108 mmol/L (98-107) H 07/06/23 16:35 Carbon Dioxide 24 mmol/L (21-32) 07/06/23 16:35 Anion Gap 7 (3-11) 07/06/23 16:35 BUN 8 mg/dl (6-23) 07/06/23 16:35 Creatinine 0.65 mg/dl (0.6-1.4) 07/06/23 16:35 Est Cr Clr Drug Dosing 158.4 ml/min 07/06/23 16:35 Est GFR ( Amer) > 150.0 ml/min 07/06/23 16:35 Est GFR (Non-Af Amer) 132.4 ml/min 07/06/23 16:35 BUN/Creatinine Ratio 12.3 (10-20) 07/06/23 16:35 Glucose 102 mg/dl (70-99(Fasting)) H 07/06/23 16:35 Calcium 9.2 mg/dl (8.6-10.3) 07/06/23 16:35 Magnesium 2.0 mg/dl (1.7-2.4) 07/06/23 23:36 Total Bilirubin 14.7 mg/dl (0.2-1.0) H 07/06/23 16:35 AST 32 U/L (13-39) 07/06/23 16:35 ALT 29 U/L (7-52) 07/06/23 16:35 Alkaline Phosphatase 65 U/L (34-104) 07/06/23 16:35 Ammonia TNP 07/06/23 23:36 Troponin I High Sens 6.9 pg/ml (0-20) 07/06/23 23:36 Total Protein 7.1 gm/dl (6.0-8.3) 07/06/23 16:35 Albumin 4.4 gm/dl (3.4-5.0) 07/06/23 16:35 Globulin 2.7 gm/dl (2.5-4.0) 07/06/23 16:35 Albumin/Globulin Ratio 1.6 (0.9-2) 07/06/23 16:35 Urine Color Dark Yellow 07/06/23 18:34 Urine Appearance Clear (Clear) 07/06/23 18:34 Urine pH 7.0 (4.5-7.5) 07/06/23 18:34 Ur Specific Woodruff 1.010 (1.000-1.030) 07/06/23 18:34 Urine Protein Negative (Negative) 07/06/23 18:34 Urine Glucose (UA) Negative (Negative) 07/06/23 18:34 Urine Ketones Negative (Negative) 07/06/23 18:34 Urine Blood Negative (Negative) 07/06/23 18:34 Urine Nitrite Negative (Negative) 07/06/23 18:34 Urine Bilirubin Negative (Negative) 07/06/23 18:34 Urine Urobilinogen Positive (Negative) H 07/06/23 18:34 Ur Leukocyte Esterase Negative (Negative) 07/06/23 18:34 Urine Opiates Screen Neg (Neg) 07/06/23 18:34 Ur Methadone, Qual Neg (Neg) 07/06/23 18:34 Urine Barbiturates Neg (Neg) 07/06/23 18:34 Ur Phencyclidine (PCP) Neg (Neg) 07/06/23 18:34 U Amphetamin/Meth Scrn Neg (Neg) 07/06/23 18:34 MDMA (Ecstasy) Screen Neg (Neg) 07/06/23 18:34 U Benzodiazepines Scrn Neg (Neg) 07/06/23 18:34 Ur Cocaine Metabolite Neg (Neg) 07/06/23 18:34 U Marijuana (THC) Screen Pos (Neg) H 07/06/23 18:34 Ethyl Alcohol mg/dL < 10.0 mg/dl (<10.0) 07/06/23 23:36 Adenovirus (PCR) Not Detected (NotDetected) 07/06/23 22:25 B. pertussis DNA (PCR) Not Detected (NotDetected) 07/06/23 22:25 B.parapertussis DNA PCR Not Detected (NotDetected) 07/06/23 22:25 Lyme Disease IgG Ab Negative (Negative) 07/06/23 23:36 Lyme Disease IgM Ab Negative (Negative) 07/06/23 23:36 C. pneumoniae DNA (PCR) Not Detected (NotDetected) 07/06/23 22:25 Coronavirus OC43 (PCR) Not Detected (NotDetected) 07/06/23 22:25 Coronavirus HKU1 (PCR) Not Detected (NotDetected) 07/06/23 22:25 Coronavirus 229E (PCR) Not Detected (NotDetected) 07/06/23 22:25 SARS-CoV-2 (PCR) Not Detected (NotDetected) 07/06/23 22:25 Coronavirus NL63 (PCR) Not Detected (NotDetected) 07/06/23 22:25 Human Metapneumovir PCR Not Detected (NotDetected) 07/06/23 22:25 Influenza Type A (PCR) Not Detected (NotDetected) 07/06/23 22:25 Influenza Type B (PCR) Not Detected (NotDetected) 07/06/23 22:25 M. pneumoniae (PCR) Not Detected (NotDetected) 07/06/23 22:25 Parainfluenza 1 (PCR) Not Detected (NotDetected) 07/06/23 22:25 Parainfluenza 2 (PCR) Not Detected (NotDetected) 07/06/23 22:25 Parainfluenza 3 (PCR) Not Detected (NotDetected) 07/06/23 22:25 Parainfluenza 4 (PCR) Not Detected (NotDetected) 07/06/23 22:25 RSV (PCR) Not Detected (NotDetected) 07/06/23 22:25 Entero/Rhino (PCR) Not Detected (NotDetected) 07/06/23 22:[address] 07/06/23 21:53 Exam(s): CT HEAD Without Contrast EXAM: CT Head Without Intravenous Contrast CLINICAL HISTORY: Reason for exam: seizure, hx sickle cell trait. TECHNIQUE: Axial computed tomography images of the head/brain without intravenous contrast. CTDI is 37.32 mGy and DLP is 624.41 mGy-cm. Automated exposure control was utilized for the study. A dose lowering technique was utilized adhering to the principles of ALARA. Mild motion artifact. COMPARISON: None. FINDINGS: Brain: No mass effect or acute infarct. No acute hemorrhage. No abnormal density in the brain parenchyma. Ventricles: No hydrocephalus or midline shift. Bones/joints: No skull fracture. Soft tissues: No scalp hematoma. Sinuses: Clear. Mastoid air cells: No mastoid effusion. IMPRESSION: 1. No acute infarct, bleed, or acute intracranial abnormality. 2. Normal exam. Electronically signed by: Kerline Rutherford M.D. 07/06/23 23:17 PM Head CTA 07/06/23 21:53 Exam(s): CTA HEAD With Contrast IV Amt: 117 ML OPTIRAY 320 EXAM: CT Angiography Head With Intravenous Contrast CLINICAL HISTORY: Reason for exam: seizure, hx sickle cell trait. TECHNIQUE: Axial computed tomographic angiography images of the head with intravenous contrast. CTDI is 31.14 mGy and DLP is 507.91 mGy-cm. Automated exposure control was utilized for the study. A dose lowering technique was utilized adhering to the principles of ALARA. MIP reconstructed images were created and reviewed. Venous contamination limits evaluation for small aneurysm. CONTRAST: Patient received 117 ML OPTIRAY 320 of IV contrast COMPARISON: None. FINDINGS: Right internal carotid artery: Patent. Right anterior cerebral artery: Patent. Right middle cerebral artery: Patent. Right posterior cerebral artery: Patent. Predominant supply via the anterior circulation. Right vertebral artery: Nondominant, probably terminates as a PICA. Left internal carotid artery: Patent. Left anterior cerebral artery: Patent. Left middle cerebral artery: Patent. Left posterior cerebral artery: Patent. Predominant supply via the anterior circulation. Left vertebral artery: Patent. Basilar artery: Patent. Diminutive, due to normal variant anatomy. Other: IMPRESSION: 1. No aneurysm or large vessel occlusion. Electronically signed by: Kerline Rutherford M.D. 07/06/23 23:51 PM Neck CTA 07/06/23 21:53 Exam(s): CTA NECK With Contrast IV Amt: 117 ML OPTIRAY 320 EXAM: CT Angiography Neck With Intravenous Contrast CLINICAL HISTORY: Reason for exam: seizure, hx sickle cell trait. TECHNIQUE: Routine carotid CT angiography protocol was performed with intravenous contrast. NASCET criteria using the distal ICAs for comparison were used for evaluation of stenoses. CTDI is 11.87 mGy and DLP is 507.91 mGy-cm. Automated exposure control was utilized for the study. A dose lowering technique was utilized adhering to the principles of ALARA. MIP reconstructed images were created and reviewed. Venous contamination limits detail. CONTRAST: Patient received 117 ML OPTIRAY 320 of IV contrast COMPARISON: None. FINDINGS: Right common carotid artery: Patent. Right internal carotid artery: Patent. Right vertebral artery: Patent. Left common carotid artery: Patent. Left internal carotid artery: Patent. Left vertebral artery: Patent. Left dominant system. Other: No atherosclerosis, stenosis or vessel narrowing. IMPRESSION: 1. No dissection, occlusion, or significant stenosis. CAROTID STENOSIS REFERENCE USING NASCET CRITERIA: % ICA stenosis = (1 - narrowest ICA diameter/diameter of distal cervical ICA) x 100. Mild - <50% stenosis. Moderate - 50-69% stenosis. Severe - 70-94% stenosis. Near occlusion - 95-99% stenosis. Occluded - 100% stenosis. Electronically signed by: Kerline Rutherford M.D. 07/06/23 23:46 PM Diagnostic Findings EKG as per my interpretation : Rate 75, NSR, RAD, no ischemia
[2023-07-07] MEDS ORDERED: levETIRAcetam 1,000 MG in 0.9 % SODIUM CHLORIDE 100 ML IV STA (02:13)
[2023-07-07] MEDS ORDERED: KETOROLAC TROMETHAMINE 15 MG/ML VIAL IV PRN (02:19)
[2023-07-07] MEDS ORDERED: PROMETHAZINE HCL 6.25 MG in SODIUM CHLORIDE 0.9% 50 ML IV PRN (02:19)
[2023-07-07] MEDS ORDERED: LORazepam 2 MG/1 ML VIAL IV PRN (02:19)
[2023-07-07] MEDS ORDERED: LACTATED RINGER'S 1,000 ML IV ONE (02:20)
[2023-07-07] MEDS ORDERED: GADOBUTROL 65ML VIAL IV ONE (03:11)
[2023-07-07] MEDS ORDERED: ACETAMINOPHEN 325 MG TAB PO PRN (04:56)
--- NOTE | 2023-07-07 04:56 | Magnetic Resonance Report ---
Exam(s): MRI OTHER W/WO Contrast IV Amt: 6.5cc gadavist EXAM: MR Head Without and With Intravenous Contrast CLINICAL HISTORY: Reason for exam: sz. TECHNIQUE: Magnetic resonance images of the head/brain without and with intravenous contrast in multiple planes. CONTRAST: Patient received 6.5cc gadavist of IV contrast COMPARISON: Comparison made to prior head CT from July 06, 2023. FINDINGS: Brain: Minimal nonspecific white matter changes. The fluid was at the base the brain are intact. No mass. No hemorrhage. No acute infarct. No evidence of abnormal enhancement. The dural venous sinuses are patent. No evidence of mesial temporal sclerosis, heterotopic storey matter or cortical dysplasia. Ventricles: Unremarkable. No ventriculomegaly. Bones/joints: Unremarkable. Sinuses: Unremarkable as visualized. No acute sinusitis. Mastoid air cells: Unremarkable as visualized. No mastoid effusion. Orbits: Unremarkable as visualized. IMPRESSION: No evidence of acute intracranial pathology. Minimal nonspecific white matter changes. Electronically signed by: Madeline Posada MD 07/07/23 04:55 AM
[2023-07-07] MEDS: NICOTINE 21 MG/24 HR TDSY TD SCH (08:52)
--- NOTE | 2023-07-07 11:35 | Electroencephalogram ---
EEG Procedure Note Date of Service July 07, 2023 Start / End Times Start Time: 1034 End Time: 1054 Referring Physician Nimesh Dawson MD History 27-year-old history of 2 prolonged generalized tonic-clonic seizures July 06. Home Medication List Medication Instructions Recorded Confirmed Type No Known Home Medications 06/28/23 07/07/23 History Inpatient Medication List Lactated Ringer's (Lr) 1,000 mls @ 60 mls/hr IV .[id number] ONE Stop: 07/07/23 18:59 Last Admin: 07/07/23 05:25 Dose: 60 mls/hr Documented By: GRISELDA Miscellaneous (Remove Nicoderm Patch) 1 each N/A DAILY@0859 [facility] Stop: 08/06/23 08:58 Last Admin: 07/07/23 08:52 Dose: Not Given Documented By: RIKKI Nicotine (Nicotine 21 Mg/24 Hr Tdsy) 21 mg TD DAILY AMADO Stop: 08/06/23 08:59 Last Admin: 07/07/23 08:52 Dose: Not Given Documented By: RIKKI Discontinued Medications Gadobutrol (Gadobutrol 65ml Vial) 6.5 ml IV ONCE ONE Stop: 07/07/23 03:12 Last Admin: 07/07/23 03:11 Dose: 6.5 ml Documented By: BEBO Sodium Chloride (Nss 1000ml) 1,000 mls @ 999 mls/hr IV .Q1H1M AMADO Stop: 07/06/23 23:00 Last Infusion: 07/07/23 00:31 Dose: 0 mls/hr Documented By: Admin: 07/06/23 22:24 Dose: 999 mls/hr Documented By: MOLLY Levetiracetam 1,000 mg/ Sodium (Chloride) 110 mls @ 440 mls/hr IV NOW STA Stop: 07/07/23 02:27 Last Infusion: 07/07/23 04:11 Dose: 0 mls/hr Documented By: Admin: 07/07/23 03:45 Dose: 440 mls/hr Documented By: ISA Ioversol (Ioversol 350 Mg 125ml Prefilled Syringe) 125 ml IV ONCE ONE Stop: 07/06/23 22:47 Last Admin: 07/06/23 22:47 Dose: 117 ml Documented By: ROSEMARY Nicotine (Nicotine 21 Mg/24 Hr Tdsy) 21 mg TD NOW STA Stop: 07/06/23 21:54 Last Admin: 07/06/23 22:24 Dose: 21 mg Documented By: MOLLY Description This is a 21 electrode EEG with a single channel dedicated to limited EKG. The electrodes were placed in accordance with the International 10-20 system. Interpretation The predominant background activity consists of a very well modulated 10 Hz activity, of up to 40 mV in amplitude,seen symmetrically distributed over the posterior head regions bilaterally. This activity attenuates nicely with eye- opening and other alerting procedures. Photic stimulation was performed and elicited no change in the background activity and no abnormal responses were seen. Hyperventilation was not performed. A minimal amount of muscle and movement artifact activity contaminated the recording and did not hinder interpretation to any significant degree. Throughout the waking portion of the recording, no focal abnormalities, abnormal slow activity, or potentially epileptogenic discharges are seen. The patient entered the drowsy state with no further activation. In summary, this EEG was normal during wakefulness and drowsiness. No focal abnormalities, potentially epileptogenic discharges, or abnormal slow activity was seen. Clinical Correlation The absence of potentially epileptogenic activity does not exclude a seizure disorder, since interictally, EEGs can be normal. Clinical correlation is required. In addition, given the number and duration of his seizures, I am surprised there is no post ictal slowing. [facility] EEG Procedure Codes Indication for Procedure (1) Seizure: Neurology Neurology: 06124 EEG include record awake & drowsy
--- NOTE | 2023-07-07 11:55 | Neurology Consultation ---
Date of Consultation July 07, 2023 Assessment & Plan (1) Seizure: (2) Concussion: Plan Patient had a concussion with multiple symptoms as outlined on June 26. The patient had 2 episodes yesterday witnessed with his eyes rolling up and solomon his arms but the patient himself recalls his legs straightening in his arms solomon with activity. He should not have any recall of the event if he has bilateral tonic-clonic activity. His exam is unremarkable and he is had multiple neurologic tests that have been unremarkable as well. Despite his prolonged seizures his EEG showed no slowing or abnormalities of any kind. Concussion itself does not necessarily result in seizures of a delayed nature, particularly if his imaging studies are unremarkable. I can not exclude sleep deprivation and stress as a trigger of the seizures. Given his history, however, I can not exclude pseudo-seizure (stress reaction). He is worried about worker's comp given his work injury. Recommendations: 1. Continue levetiracetam 500 mg twice daily. 2. I have no other neurologic testing or treatment recommendations to make at this time 3. We can follow-up in Neurology in the office in several weeks with a PA for both the post concussion symptoms as well as the seizure. At that time, we can make additional recommendations, including, possibly discontinuing anticonvulsant Overall, I spent a total of 80 minutes with this case including review of records, review of MRI films, direct evaluation the patient at bedside, report generation, and discussing the case with the patient at bedside Dr. Barragan differential diagnosis History of Present Illness Reason for Consultation: Patient is a 27-year-old, who I was asked to see at the request of Dr. Dawson, for neurologic consultation regarding seizures. Requesting Physician: Dr. Galloway Attending Physician: Srinivas Barragan MD History of Present Illness This patient has a history of sickle cell and was on no medication or having any significant medical issues (including no history of seizures). 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 He stumbled backwards with no loss of consciousness. He was stunned and ever since he is had some slurred speech, trouble with concentration understanding and focusing, balance issues, a general sense of weakness all over, some blurry vision and photophobia if outside, and headaches. These headaches have been diffuse either frontal or occipital and varying in intensity. They can be steady and sharp or could be pounding. They are increasing with stress and concentration and they are decreasing with rest and not using electronic devices. On August 28 he went to the emergency room and a CT scan of the head and MRV was unremarkable. Diagnosis of concussion was made. On July 04 he returned to the ER and a CBC showed anemia. Chem profile, CK, TSH were unremarkable. CT scan of the head and CT scan of the cervical spine were unremarkable and a chest x-ray was normal. He came to the emergency room July 06 at 4:50 p.m. because of witnessed seizure activity. The patient himself says he was stressed after talking to the worker's compensation people and had a sudden feeling of being out of it the next thing he knew he was flexing his arms in rapid jerking movements, and extending his legs with rapid movements and tremors as well. The episode lasted about 5 minutes and then he had 3 minutes and then had a 2nd event lasting 8 minutes. He remembers being tired afterwards and did not have tongue biting or incontinence of urine. He had a pounding headache prior to the event as well. There was some decreased sleep over the last week as the patient has not been sleeping well since the concussion but he does not have any other overt sleep deprivation. He was not using caffeine or any other substance. In the emergency room he was afebrile at 36.9 with a blood pressure 148/63 O2 saturation 95%, and pulse of 65. He was given 1 g IV levetiracetam. He is had no further seizures since being in the emergency room or after admission. MRI of the brain with without contrast was unremarkable with no abnormalities. I have reviewed these films. CT angiography of the head neck were unremarkable as well. EEG was obtained and was quite normal during awake and drowsiness. There was no slowing, focal abnormalities, or potentially epileptogenic discharges seen Allergies Allergy/AdvReac Type Severity Reaction Status Date / Time No Known Allergies Allergy Verified 07/07/23 01:39 Home Medications Medication Instructions Recorded Confirmed Type No Known Home Medications 06/28/23 07/07/23 History Patient History Medical History Sickle cell disease Surgical History No pertinent past surgical history Social History Smoking Status: Current every day smoker Tobacco Type: E-cigarettes / Vaping Second Hand Exposure: No; Do You Dip or Chew Tobacco: No; Tobacco Cessation Education Requested by Patient: No Hx Alcohol Use: No Hx Substance Use: Yes Preferred Language: Italian Communication Ability: Effective Highway Safety Engineer Required: No Beliefs That Will Affect Care: None Current Living Situation: Family Current Living Situation Comment: Lives w/ half-brother Other Information That Helps Us Care for You: No Feels Safe at Home: Yes Safety Concerns: Feels Safe At This Time Assistive Devices: None Review of Systems Constitutional: no fever, no fatigue and no weakness Eyes: no diplopia, no eye pain and no worsening vision Ear, Nose, Mouth, Throat: no ear pain, no tinnitus, no hearing loss, no dizziness, no snoring, no hoarseness and no dysphagia Respiratory: no cough and no dyspnea Cardiovascular: no chest pain, no palpitations and no lightheadedness Gastrointestinal: no abdominal pain, no nausea and no vomiting Musculoskeletal: no back pain, no neck pain, no radicular pain, no joint pain and no myalgia Integumentary: no rash and no lesions Neurologic: no gait abnormality, no localized weakness, no generalized weakness, no tingling, no numbness, no tremor(s), no abnormal movements, no headache(s), no abnormal speech, no confusion and no memory loss Psychiatric: no depression, no irritability, no anxiety, no difficulty concentrating, no confusion and no hallucinations Endocrine: no fatigue and no flushing Hematologic / Lymphatic: no easy bleeding and no easy bruising Allergy / Immunological: no urticaria and no problem reported Exam (Neuro) Physical Exam: The patient is right-handed. The patient is awake, alert, and attentive. Speech is normal without any aphasia or dysarthria. The patient can name objects, repeat phrases, and has normal spontaneous speech. Mentation and thought processes are intact, with orientation to person, place and time, and normal fund of knowledge. Attention and concentration are normal. Mood and affect are normal and appropriate. General appearance and grooming are normal. Short and long-term memory are intact. Pupils are 4 mm bilaterally and reactive to light. Extraocular eye muscles are intact without nystagmus. Visual acuity and visual cruz seem normal grossly to confrontation. There are no deficits to sensation in the face in all 3 distributions of the fifth cranial nerve bilaterally. Corneal reflexes are positive bilaterally. Facial strength and symmetry was normal bilaterally. Hearing seems normal bilaterally. Palate moves well without asymmetry. There is normal sternocleidomastoid and trapezius (shoulder shrug) strength bilaterally. Tongue is midline with good strength bilaterally. Neck has a full range of motion without discomfort. There are no cervical bruits bilaterally. There are no cranial or ocular bruits. Heart is without murmur. There is a regular rhythm and rate. Cervical, thoracic, and lumbar spine are nontender to palpation. Gait is narrow based, with good arm swing, turns, and stance. With outstretched arms there is no drift. There are no resting, postural, or action tremors. There is no ataxia with finger to nose testing. There is good facility in the hands. No other abnormal involuntary movements are noted. Motor strength is 5/5 diffusely in the arms bilaterally including deltoids, biceps, triceps, brachioradialis, wrist flexors and extensors, home health care case manager, and intrinsic hand muscles. Motor strength is 5/5 diffusely in the legs bilaterally including hip flexors, quadriceps, hamstrings, gastrocnemius, tibialis anterior, tibialis posterior, and Peroneii muscles. Toe extensors are normal and there is good bulk in the extensor digitorum brevis muscles bilaterally. The limbs have good tone without rigidity or spasticity. There is no atrophy noted in the muscles. Muscle bulk is normal, there is no tenderness to palpation, no myotonia to percussion, and no fasciculations seen. Sensory examination is intact to touch and pin throughout all 4 limbs diffusely. Reflexes are 1/4 in the biceps, triceps, brachioradialis, quadriceps, and Achilles tendons bilaterally. There is no clonus bilaterally. Toes are downgoing with plantar stimulation bilaterally. Peripheral pulses are present and of normal quality distally in all 4 limbs. There is no peripheral edema noted in the limbs. Results & Data Vital Signs (Past 12 Hours) Vital Signs Temp Pulse Pulse Resp BP BP Pulse Ox 07/07/23 09:26 07/07/23 08:00 36.9 C 69 19 111/65 92 07/07/23 04:49 65 07/07/23 04:56 36.7 C 63 16 142/79 H 97 07/07/23 04:56 07/07/23 04:00 63 23 97 07/07/23 03:30 58 L 19 96 07/07/23 03:21 76 22 07/07/23 03:21 144/69 H 07/07/23 02:30 69 24 95 07/07/23 02:00 67 21 96 07/07/23 02:00 139/74 07/07/23 01:30 72 21 07/07/23 01:00 60 30 H 95 07/07/23 01:00 135/67 07/07/23 00:30 68 28 H 96 07/07/23 00:04 113/71 07/07/23 00:04 69 18 91 07/07/23 00:00 66 19 93 07/07/23 00:18 64 Pulse Ox O2 Del Method O2 Del Method 07/07/23 09:26 Room Air 07/07/23 08:00 Room Air 07/07/23 04:49 07/07/23 04:56 Room Air 07/07/23 04:56 97 Room Air 07/07/23 04:00 Room Air 07/07/23 03:30 07/07/23 03:21 07/07/23 03:21 07/07/23 02:30 07/07/23 02:00 07/07/23 02:00 07/07/23 01:30 07/07/23 01:00 07/07/23 01:00 07/07/23 00:30 07/07/23 00:04 07/07/23 00:04 07/07/23 00:00 07/07/23 00:18 PG Care Time/CCT Total # of Minutes Spent Total Time Spent with Patient: Total time spent is greater than 50% in coordination of care (as documented) at patient's floor/unit and/or counseling patient: Coding Level of Care Code 06639 IN/OBS CONSULT LVL 5,80M Diagnoses Seizure R56.9 Concussion S06.0X0D Encounter type: subsequent encounter Loss of consciousness presence/duration: without LOC Time Spent (min) 80 (2) Concussion Encounter type: subsequent encounter Loss of consciousness presence/duration: without LOC Qualified Code(s): S06.0X0D - Concussion without loss of consciousness, subsequent encounter
--- NOTE | 2023-07-07 12:35 | Hospitalist Progress Note ---
Date of Service July 07, 2023 Assessment & Plan (1) Seizure: Plan: History of recent cerebral concussion resulting in ED visits on June 28 and July 04. Presented to the ED after witnessed seizure by his girlfriend. CT head without contrast personally reviewed; no acute intracranial abnormality. Brain MRI with/without contrastno acute intracranial abnormality. Labs reviewed; macrocytic anemia. Reticulocyte count of 17 with sickle cell present. Total bilirubin is 14.7. EEG interpreted by neurology; no acute abnormality. Discussed with neurology (Dr. Hager) started on Keppra 500 twice daily Follow-up with neurology office with the PA for both postconcussion syndrome and seizure. Seizure precautions Ativan as needed for seizure. 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 Patient reports that he used to see event marketing coordinator in [place]. Was previously on hydroxyurea and folic acid. Lab work reveals elevated reticulocyte count and elevated total bilirubin. Patient to follow-up with PCP and obtain hematology referral as outpatient. DVT prophylaxis. SCDs Re: Recent head trauma with scalp contusion Full code Time spent evaluating patient, direct bedside care, chart review, placing orders, interpretation of diagnostic studies, discussion with consultants, patient, and family members, as well as other required patient management activities is 60 minutes. Please note the above document was generated using voice recognition software. It may contain grammatical, syntax or spelling errors. Any formal questions or concerns about the content, text or information contained within the body of this dictation should be directly addressed to the provider for clarification Admission and Anticipated Discharge Date Admission Date: July 07, 2023 Subjective Patient seen and examined at bedside. He is lying on the bed comfortably; not in any distress. He denies headache, fever, chills, chest pain or abdominal pain. No significant overnight events. Review of Systems Review of Systems: All systems reviewed & are unremarkable except as noted in Subjective Physical Exam Physical Exam: Constitutional: WD/WN, vitals as above, NAD, sitting up in bed, pleasant, conversing easily Eyes: Icteric sclera Respiratory: normal respiratory effort, lungs clear to auscultation, no wheeze, rales, rhonchi. Normal insp/exp effort, no accessory muscle use Cardiovascular: RRR, no murmur, no edema Vessels: no JVD or carotid bruit Chest: normal inspection of chest Abdomen: normal bowel sounds, soft, nontender, no hepatosplenomegaly Musculoskeletal: no cyanosis or clubbing, extremities motor strength 5/5 Skin: no rashes, warm and dry normal turgor Neurologic: PERRL, EOMI, accommodation nl, no face palsy, no dysarthria CN's II- XI intact bilaterally and moves all extremities Psychiatric: A+Ox3, euthymic affect Results & Data Results & Data Vital Signs (Past 12 Hours) Vital Signs Temp Pulse Pulse Resp BP BP Pulse Ox 07/07/23 11:41 36.6 C 64 19 117/67 92 07/07/23 09:26 07/07/23 08:00 36.9 C 69 19 111/65 92 07/07/23 04:49 65 07/07/23 04:56 36.7 C 63 16 142/79 H 97 07/07/23 04:56 07/07/23 04:00 63 23 97 07/07/23 03:30 58 L 19 96 07/07/23 03:21 76 22 07/07/23 03:21 144/69 H 07/07/23 02:30 69 24 95 07/07/23 02:00 67 21 96 07/07/23 02:00 139/74 07/07/23 01:30 72 21 07/07/23 01:00 60 30 H 95 07/07/23 01:00 135/67 07/07/23 00:30 68 28 H 96 Pulse Ox O2 Del Method O2 Del Method 07/07/23 11:41 Room Air 07/07/23 09:26 Room Air 07/07/23 08:00 Room Air 07/07/23 04:49 07/07/23 04:56 Room Air 07/07/23 04:56 97 Room Air 07/07/23 04:00 Room Air 07/07/23 03:30 07/07/23 03:21 07/07/23 03:21 07/07/23 02:30 07/07/23 02:00 07/07/23 02:00 07/07/23 01:30 07/07/23 01:00 07/07/23 01:00 07/07/23 00:30 Laboratory Results Laboratory Results WBC 9.92 K/ul (4.8-10.8) 07/06/23 16:35 RBC 2.39 M/uL (4.70-6.10) L 07/06/23 16:35 Hgb 9.1 g/dl (14.0-18.0) L 07/06/23 16:35 Hct 24.7 % (42.0-52.0) L 07/06/23 16:35 MCV 103.3 fL (80.0-100.0) H 07/06/23 16:35 MCH 38.1 pg (25.0-34.0) H 07/06/23 16:35 MCHC 36.8 g/dL (32.0-36.0) H 07/06/23 16:35 RDW Std Deviation 73.9 fL (36.4-46.3) H 07/06/23 16:35 RDW Coeff of Luis 20.2 % (11.5-14.5) H 07/06/23 16:35 Plt Count 361 K/uL (130-400) 07/06/23 16:35 MPV 10.8 fL (9.4-12.4) 07/06/23 16:35 Immature Gran % (Auto) 0.5 % 07/06/23 16:35 Neut % (Auto) 45.4 % 07/06/23 16:35 Lymph % (Auto) 39.3 % 07/06/23 16:35 Jay % (Auto) 10.6 % 07/06/23 16:35 Eos % (Auto) 3.7 % 07/06/23 16:35 Baso % (Auto) 0.5 % 07/06/23 16:35 Reticulocyte % (Auto) 17.2 % (0.5-2.0) H 07/06/23 16:35 Neut # (Auto) 4.50 K/uL (1.40-6.50) 07/06/23 16:35 Lymph # (Auto) 3.90 K/uL (1.20-3.40) H 07/06/23 16:35 Jay # (Auto) 1.05 K/uL (0.11-0.59) H 07/06/23 16:35 Eos # (Auto) 0.37 K/uL (0.00-0.50) 07/06/23 16:35 Baso # (Auto) 0.05 K/uL (0.00-0.20) 07/06/23 16:35 Reticulocyte # 0.40 10^6/uL (0.02-0.10) H 07/06/23 16:35 Immature Gran # (Auto) 0.05 K/uL (0.01-0.20) 07/06/23 16:35 Absolute Nucleated RBC 0.28 K/uL (0.00-0.12) H 07/06/23 16:35 Nucleated RBC % (auto) 2.8 % 07/06/23 16:35 Polychromasia 1+ 07/06/23 16:35 Basophilic Stippling 1+ 07/06/23 16:35 Anisocytosis Present 07/06/23 16:35 Sickle Cells 3+ 07/06/23 16:35 Target Cells 1+ 07/06/23 16:35 PT 12.0 Seconds (9.0-12.0) 07/06/23 23:36 INR 1.1 (0.9-1.1) 07/06/23 23:36 APTT 23.9 Seconds (21.0-31.0) 07/06/23 23:36 PTT Ratio 0.8 07/06/23 23:36 Sodium 139 mmol/L (136-145) 07/06/23 16:35 Potassium 3.9 mmol/L (3.5-5.1) 07/06/23 16:35 Chloride 108 mmol/L (98-107) H 07/06/23 16:35 Carbon Dioxide 24 mmol/L (21-32) 07/06/23 16:35 Anion Gap 7 (3-11) 07/06/23 16:35 BUN 8 mg/dl (6-23) 07/06/23 16:35 Creatinine 0.65 mg/dl (0.6-1.4) 07/06/23 16:35 Est Cr Clr Drug Dosing 158.4 ml/min 07/06/23 16:35 Est GFR ( Amer) > 150.0 ml/min 07/06/23 16:35 Est GFR (Non-Af Amer) 132.4 ml/min 07/06/23 16:35 BUN/Creatinine Ratio 12.3 (10-20) 07/06/23 16:35 Glucose 102 mg/dl (70-99(Fasting)) H 07/06/23 16:35 Calcium 9.2 mg/dl (8.6-10.3) 07/06/23 16:35 Magnesium 2.0 mg/dl (1.7-2.4) 07/06/23 23:36 Total Bilirubin 14.7 mg/dl (0.2-1.0) H 07/06/23 16:35 AST 32 U/L (13-39) 07/06/23 16:35 ALT 29 U/L (7-52) 07/06/23 16:35 Alkaline Phosphatase 65 U/L (34-104) 07/06/23 16:35 Ammonia TNP 07/06/23 23:36 Troponin I High Sens 6.9 pg/ml (0-20) 07/06/23 23:36 Total Protein 7.1 gm/dl (6.0-8.3) 07/06/23 16:35 Albumin 4.4 gm/dl (3.4-5.0) 07/06/23 16:35 Globulin 2.7 gm/dl (2.5-4.0) 07/06/23 16:35 Albumin/Globulin Ratio 1.6 (0.9-2) 07/06/23 16:35 Urine Color Dark Yellow 07/06/23 18:34 Urine Appearance Clear (Clear) 07/06/23 18:34 Urine pH 7.0 (4.5-7.5) 07/06/23 18:34 Ur Specific [place] 1.010 (1.000-1.030) 07/06/23 18:34 Urine Protein Negative (Negative) 07/06/23 18:34 Urine Glucose (UA) Negative (Negative) 07/06/23 18:34 Urine Ketones Negative (Negative) 07/06/23 18:34 Urine Blood Negative (Negative) 07/06/23 18:34 Urine Nitrite Negative (Negative) 07/06/23 18:34 Urine Bilirubin Negative (Negative) 07/06/23 18:34 Urine Urobilinogen Positive (Negative) H 07/06/23 18:34 Ur Leukocyte Esterase Negative (Negative) 07/06/23 18:34 Urine Opiates Screen Neg (Neg) 07/06/23 18:34 Ur Methadone, Qual Neg (Neg) 07/06/23 18:34 Urine Barbiturates Neg (Neg) 07/06/23 18:34 Ur Phencyclidine (PCP) Neg (Neg) 07/06/23 18:34 U Amphetamin/Meth Scrn Neg (Neg) 07/06/23 18:34 MDMA (Ecstasy) Screen Neg (Neg) 07/06/23 18:34 U Benzodiazepines Scrn Neg (Neg) 07/06/23 18:34 Ur Cocaine Metabolite Neg (Neg) 07/06/23 18:34 U Marijuana (THC) Screen Pos (Neg) H 07/06/23 18:34 Ethyl Alcohol mg/dL < 10.0 mg/dl (<10.0) 07/06/23 23:36 Adenovirus (PCR) Not Detected (NotDetected) 07/06/23 22:25 B. pertussis DNA (PCR) Not Detected (NotDetected) 07/06/23 22:25 B.parapertussis DNA PCR Not Detected (NotDetected) 07/06/23 22:25 Lyme Disease IgG Ab Negative (Negative) 07/06/23 23:36 Lyme Disease IgM Ab Negative (Negative) 07/06/23 23:36 C. pneumoniae DNA (PCR) Not Detected (NotDetected) 07/06/23 22:25 Coronavirus OC43 (PCR) Not Detected (NotDetected) 07/06/23 22:25 Coronavirus HKU1 (PCR) Not Detected (NotDetected) 07/06/23 22:25 Coronavirus 229E (PCR) Not Detected (NotDetected) 07/06/23 22:25 SARS-CoV-2 (PCR) Not Detected (NotDetected) 07/06/23 22:25 Coronavirus NL63 (PCR) Not Detected (NotDetected) 07/06/23 22:25 Human Metapneumovir PCR Not Detected (NotDetected) 07/06/23 22:25 Influenza Type A (PCR) Not Detected (NotDetected) 07/06/23 22:25 Influenza Type B (PCR) Not Detected (NotDetected) 07/06/23 22:25 M. pneumoniae (PCR) Not Detected (NotDetected) 07/06/23 22:25 Parainfluenza 1 (PCR) Not Detected (NotDetected) 07/06/23 22:25 Parainfluenza 2 (PCR) Not Detected (NotDetected) 07/06/23 22:25 Parainfluenza 3 (PCR) Not Detected (NotDetected) 07/06/23 22:25 Parainfluenza 4 (PCR) Not Detected (NotDetected) 07/06/23 22:25 RSV (PCR) Not Detected (NotDetected) 07/06/23 22:25 Entero/Rhino (PCR) Not Detected (NotDetected) 07/06/23 22:[address] 07/06/23 21:53 Exam(s): CT HEAD Without Contrast EXAM: CT Head Without Intravenous Contrast CLINICAL HISTORY: Reason for exam: seizure, hx sickle cell trait. TECHNIQUE: Axial computed tomography images of the head/brain without intravenous contrast. CTDI is 37.32 mGy and DLP is 624.41 mGy-cm. Automated exposure control was utilized for the study. A dose lowering technique was utilized adhering to the principles of ALARA. Mild motion artifact. COMPARISON: None. FINDINGS: Brain: No mass effect or acute infarct. No acute hemorrhage. No abnormal density in the brain parenchyma. Ventricles: No hydrocephalus or midline shift. Bones/joints: No skull fracture. Soft tissues: No scalp hematoma. Sinuses: Clear. Mastoid air cells: No mastoid effusion. IMPRESSION: 1. No acute infarct, bleed, or acute intracranial abnormality. 2. Normal exam. Electronically signed by: Kerline Rutherford M.D. 07/06/23 23:17 PM Head CTA 07/06/23 21:53 Exam(s): CTA HEAD With Contrast IV Amt: 117 ML OPTIRAY 320 EXAM: CT Angiography Head With Intravenous Contrast CLINICAL HISTORY: Reason for exam: seizure, hx sickle cell trait. TECHNIQUE: Axial computed tomographic angiography images of the head with intravenous contrast. CTDI is 31.14 mGy and DLP is 507.91 mGy-cm. Automated exposure control was utilized for the study. A dose lowering technique was utilized adhering to the principles of ALARA. MIP reconstructed images were created and reviewed. Venous contamination limits evaluation for small aneurysm. CONTRAST: Patient received 117 ML OPTIRAY 320 of IV contrast COMPARISON: None. FINDINGS: Right internal carotid artery: Patent. Right anterior cerebral artery: Patent. Right middle cerebral artery: Patent. Right posterior cerebral artery: Patent. Predominant supply via the anterior circulation. Right vertebral artery: Nondominant, probably terminates as a PICA. Left internal carotid artery: Patent. Left anterior cerebral artery: Patent. Left middle cerebral artery: Patent. Left posterior cerebral artery: Patent. Predominant supply via the anterior circulation. Left vertebral artery: Patent. Basilar artery: Patent. Diminutive, due to normal variant anatomy. Other: IMPRESSION: 1. No aneurysm or large vessel occlusion. Electronically signed by: Kerline Rutherford M.D. 07/06/23 23:51 PM Neck CTA 07/06/23 21:53 Exam(s): CTA NECK With Contrast IV Amt: 117 ML OPTIRAY 320 EXAM: CT Angiography Neck With Intravenous Contrast CLINICAL HISTORY: Reason for exam: seizure, hx sickle cell trait. TECHNIQUE: Routine carotid CT angiography protocol was performed with intravenous contrast. NASCET criteria using the distal ICAs for comparison were used for evaluation of stenoses. CTDI is 11.87 mGy and DLP is 507.91 mGy-cm. Automated exposure control was utilized for the study. A dose lowering technique was utilized adhering to the principles of ALARA. MIP reconstructed images were created and reviewed. Venous contamination limits detail. CONTRAST: Patient received 117 ML OPTIRAY 320 of IV contrast COMPARISON: None. FINDINGS: Right common carotid artery: Patent. Right internal carotid artery: Patent. Right vertebral artery: Patent. Left common carotid artery: Patent. Left internal carotid artery: Patent. Left vertebral artery: Patent. Left dominant system. Other: No atherosclerosis, stenosis or vessel narrowing. IMPRESSION: 1. No dissection, occlusion, or significant stenosis. CAROTID STENOSIS REFERENCE USING NASCET CRITERIA: % ICA stenosis = (1 - narrowest ICA diameter/diameter of distal cervical ICA) x 100. Mild - <50% stenosis. Moderate - 50-69% stenosis. Severe - 70-94% stenosis. Near occlusion - 95-99% stenosis. Occluded - 100% stenosis. Electronically signed by: Kerline Rutherford M.D. 07/06/23 23:46 PM Brain MRI 07/07/23 02:19 Exam(s): MRI OTHER W/WO Contrast IV Amt: 6.5cc gadavist EXAM: MR Head Without and With Intravenous Contrast CLINICAL HISTORY: Reason for exam: sz. TECHNIQUE: Magnetic resonance images of the head/brain without and with intravenous contrast in multiple planes. CONTRAST: Patient received 6.5cc gadavist of IV contrast COMPARISON: Comparison made to prior head CT from July 06, 2023. FINDINGS: Brain: Minimal nonspecific white matter changes. The fluid was at the base the brain are intact. No mass. No hemorrhage. No acute infarct. No evidence of abnormal enhancement. The dural venous sinuses are patent. No evidence of mesial temporal sclerosis, heterotopic storey matter or cortical dysplasia. Ventricles: Unremarkable. No ventriculomegaly. Bones/joints: Unremarkable. Sinuses: Unremarkable as visualized. No acute sinusitis. Mastoid air cells: Unremarkable as visualized. No mastoid effusion. Orbits: Unremarkable as visualized. IMPRESSION: No evidence of acute intracranial pathology. Minimal nonspecific white matter changes. Electronically signed by: Madeline Posada MD 07/07/23 04:55 AM
[2023-07-08] MEDS: NICOTINE 21 MG/24 HR TDSY TD SCH (09:04)
--- NOTE | 2023-07-08 10:23 | Discharge Summary ---
Date of Service July 08, 2023 Admission HPI Per Admitting Provider History obtained from patient, family, and records. Medical history significant for sickle cell disease, chronic anemia (baseline hemoglobin 9), ongoing vape use. 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 Achy headache symptoms. Dizziness described as lightheadedness. [place] like he was going to pass out. No chest pain, no SOB. 06/28 Patient consulted ER for persistent headache and memory fog symptoms. CT head and MRV head negative. Patient discharged home. 07/04 Patient returned to ER with persistent symptoms of headache, nausea and confus ion. CT head showed right scalp contusion. ER provider mended outpatient referral to a neurologist if with persistent symptoms. As per girlfriend, patient stressed at home the last couple of days trying to get a referral for a neurologist. Losing some sleep from stress. 2 episodes of "shaking like grand mal seizures" witnessed by girlfriend at patient's home last night. Patient girlfriend has witnessed seizures among epileptic family members in the past. Both episodes lasting about a few minutes. No tongue biting, no incontinence. Patient confused after episode. Patient brought to the ER for evaluation by girlfriend. 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 Admission Exam Per Admitting Provider GENERAL: Comfortable, pleasant, underweight, no respiratory distress SKIN: Pallor, warm HEENT: Pale palpebral conjunctivae, no ptosis, dry buccal mucosa NECK : Supple, no tenderness CHEST : CTA, no tenderness HEART : RRR, systolic murmur ABDOMEN: Healed incisional scars, no distention, nontender EXTREMITIES : No LE swelling/tenderness, no other conspicuous deformities noted NEUROLOGIC : Coherent, no facial asymmetry, no other gross focality Principal Diagnosis New onset seizure Concussion Discharge Exam Constitutional: WD/WN, vitals as above, NAD, sitting up in bed, pleasant, conversing easily Eyes: Icteric sclera Respiratory: normal respiratory effort, lungs clear to auscultation, no wheeze, rales, rhonchi. Normal insp/exp effort, no accessory muscle use Cardiovascular: RRR, no murmur, no edema Vessels: no JVD or carotid bruit Chest: normal inspection of chest Abdomen: normal bowel sounds, soft, nontender, no hepatosplenomegaly Musculoskeletal: no cyanosis or clubbing, extremities motor strength 5/5 Skin: no rashes, warm and dry normal turgor Neurologic: PERRL, EOMI, accommodation nl, no face palsy, no dysarthria CN's II- XI intact bilaterally and moves all extremities Psychiatric: A+Ox3, euthymic affect Discharge Data Allergies Allergy/AdvReac Type Severity Reaction Status Date / Time No Known Allergies Allergy Verified 07/07/23 01:39 Consultations 07/07/23 01:23 ED Decision to Admit Stat 07/07/23 04:56 Consult Neurology Routine Ordered Studies 07/06/23 21:53 CT angio head w con Stat CT angio neck with con Stat CT head/brain wo con Stat 07/07/23 02:19 MRI Brain [MR brain seizure wo/w con] Stat Hospital Course (1) Seizure: History of recent cerebral concussion resulting in ED visits on June 28 and July 04. Presented to the ED after witnessed seizure by his girlfriend. CT head without contrast; no acute intracranial abnormality. Brain MRI with/without contrastno acute intracranial abnormality. Labs reviewed; macrocytic anemia. Reticulocyte count of 17 with sickle cell present. Total bilirubin is 14.7. EEG interpreted by neurology; no acute abnormality. Neurology evaluated the patient during the hospitalization; recommended that patient to be started on Keppra 500 twice daily. Follow-up with neurology office with the PA for both postconcussion syndrome and seizure. No seizure activity noted during the hospitalization. 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 Was previously on hydroxyurea and folic acid. Lab work reveals elevated reticulocyte count and elevated total bilirubin. Patient to follow-up with PCP and obtain hematology referral as outpatient. Please note the above document was generated using voice recognition software. It may contain grammatical, syntax or spelling errors. Any formal questions or concerns about the content, text or information contained within the body of this dictation should be directly addressed to the provider for clarification Total Time Total Time Spent Total Time Spent (In Minutes): 35 Total Time Includes: Examination of the Patient, Discharge Planning, Medication Reconciliation, Communication With Other Providers and Other Discharge Plan Discharge Items Patient Disposition: Home - Self-Care Reason For Visit: NEW ONSET SEIZURE Discharge Diagnosis: New onset seizure Activity: Resume your previous activity Non-emergency contact: Primary Care Provider Call non-emergency contact if: you have any medication questions and your symptoms worsen Follow-up/Referrals: PCP,NO [Primary Care Provider] - Diet: Regular Addtl Attending Provider Instructions: You were admitted to the hospital for concern of seizure disorder. You were evaluated by neurologist during your hospitalization. He recommended that you be placed on Keppra 500 mg twice daily. A prescription has been sent up to your pharmacy. An appointment will be set up with your primary care doctor. You will need hematology referral for management of sickle cell anemia. You will also need to follow-up with neurology as outpatient. Pending Studies at Discharge: No Stand-Alone Forms: My [facility], Work/School Release, Smoking Cessation Medications and DC Order Prescriptions: New levetiracetam [Keppra] 500 mg tablet 500 mg PO BID Qty: 60 0RF No Action No Known Home Medications Discharge Orders: Discharge Order (Routine); Ordered 07/08/23 Ordered By: Srinivas Barragan Admission Data Admit Date/Time: 07/07/23 02:16 Attending Provider: Srinivas Barragan Admit Provider: Nimesh Galloway Primary Care Provider: PCP,NO Other Providers: Negrito Hager ; Nimesh Galloway
[2023-07-09 04:02] LABS: Marijuana Quant, GCMS Urine 27 ng/mL (<5)
--- NOTE | 2023-07-09 22:19 | Electrocardiogram Report ---
Test Reason : Blood Pressure : / mmHG Vent. Rate : 073 BPM Atrial Rate : 073 BPM P-R Int : 198 ms QRS Dur : 098 ms QT Int : 382 ms P-R-T Axes : 062 086 058 degrees QTc Int : 420 ms Normal sinus rhythm Normal ECG When compared with ECG of 04-JUL-2023 15:32, No significant change was found Confirmed by Eulalio Gonzalez ([id number]) on 07/09/2023 10:18:48 PM Referred By: REFERRED SELF Confirmed By:Eulalio Gonzalez
== END 2023-07-08 13:05 | disposition home or self-care (01) | DRG 101 ==
LOC: ED 16:22 → 2N 07-07 02:16

== ENCOUNTER 2023-10-04 01:29 | Inpatient (IN) ==
--- OUTSIDE RECORDS SUMMARY | 2023-10-04 01:35 | External Medical Summary | Summary of Care ---
Author Name Unknown Organization [facility] Address [address] [place] [address] Phone [phone] Care Team Providers Care Yolk Spray Drier Name Role Phone Alex Harp MD Primary Care Provider Reason for Visit * Reason Onset Date Comments Other 09/14/2023 Encounter Details Date Type Department Care Team (Late st Contact Info) Description 09/14/2023 Telephone [facility] [address] [place], [place] [phone] Specified, Kami No Resource [address] [place] [address] Other Allergies No known active allergiesdocumented as of this encounter (statuses as of 09/21/2023) Medications Medication Sig Dispensed Refills Start Date End Date Status FOLIC ACID 1 MG OR TABSIndications:Si ckle-cell disease 1 tab daily oral 60 0 11/16/2003 Active Additional Information Patient not taking.Reported on 08/14/2023 levETIRAcetam 500 MG Oral Tablet (Keppra) Take 1 Tablet by mouth in the morning and 1 Tablet before bedtime. 0 Active Riboflavin 400 MG Oral Capsule Take 1 Capsule by mouth in the morning. 30 Capsule 5 08/14/2023 Active Magnesium 400 MG Oral Capsule Take 1 Capsule by mouth in the morning. 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 documented as of this encounter (statuses as of 09/21/2023) Social History Tobacco Use Types Packs/Day Years Used Date Smoking Tobacco: Never Smokeless Tobacco: Never Comments:No passive smoke ex posure Alcohol Use Standard Drinks/Week Comments Never 0 (1 standard drink = 0.6 oz pur e alcohol) Sex and Gender Information Value Date Recorded Sex Assigned at Not on file Gender Identity Not on file Sexual Orientation Not on file Job Start Date Occupation Industry Not on file Not on file Not on file documented as of this encounter Miscellaneous Notes * Telephone Encounter - Zulema Myers LPN - 09/21/2023 11:05 AM EST See other encounter * Telephone Encounter - Nelida Spear OSA - 09/21/2023 9:09 AM EST Lesly Mohan is calling stating pt is having issues with the decrease in Keppra would like Dr Puckett to call back at [phone] * Telephone Encounter - Zulema Myers LPN - 09/17/2023 12:16 PM EST Faxed workers comp forms * Telephone Encounter - Nerissa Trinidad OSA - 09/15/2023 1:36 PM EST I also faxed OV and work note * Telephone Encounter - Zulema Myers LPN - 09/14/2023 5:01 PM EST Faxed with letter to not return to work and letting them know he can't drive * Telephone Encounter - Renetta Bucio OSA - 09/14/2023 11:45 AM EST genex nurse Nalini [phone] fax# Nalini Paco please fax notes to her. Also,Is he able to drive?cleared from concussion? Work Letter for him if he can return to work, if he is able? Ty documented in this encounter Plan of Treatment Upcoming Encounters Date Type Department Care Team (Late st Contact Info) Description 10/29/2023 7:30 AM EST Office Visit Neurology [facility] [place] [address] [place] [address] Eun Garrison PA-C [address] [place] [address] Health Maintenance Due Date Last Done Comments Hepatitis B (1 of 3 - 3-dose series) 1994 COVID-19 Vaccine (#1) 06/15/1995 Depression Screening 2006 HIV Screening 2009 Hepatitis C Screening 2012 DTaP,Tdap,and Td Vaccines (1 - Tdap) 2013 Influenza Vaccine (FLU shot) (#1) 2023 08/12/2013, 07/26/2012 GARDASIL-HPV IMMUNIZATION SERIES Aged Out No longer eligible b ased on patient's age to complete this topic MENINGOCOCCAL (MENACTRA/MENVEO) Aged Out No longer eligible b ased on patient's age to complete this topic Pneumococcal Vaccine: Pediatrics (0 to 5 Years) and At-Risk Patients (6 to 64 Years) Aged Out No longer eligible b ased on patient's age to complete this topic documented as of this encounter Medical Devices Not on filedocumented as of this encounter Care Teams Yolk Spray Drier Relationship Specialty Start Date End Date Alex Harp MD [address] [place] [address] PCP - General 11/13/03 documented as of this encounter
--- OUTSIDE RECORDS SUMMARY | 2023-10-04 01:35 | External Medical Summary | Summary of Care ---
Author Name Unknown Organization [facility] Address [address] [place] [address] Phone [phone] Care Team Providers Care Dumpling Machine Operator Name Role Phone Alex Harp MD Primary Care Provider [phone] Reason for Visit * Reason Onset Date Comments Medical Records Request 09/22/2023 Medical Records Request from [facility] Encounter Details Date Type Department Care Team (Late st Contact Info) Description 09/22/[address] [facility] [address] [facility] [place] [address] Alex Harp MD [address] [facility] [place] [address] Medical Records Request (Medical Records R... 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 documented as of this encounter (statuses as of 09/22/2023) Social History Tobacco Use Types Packs/Day Years [...] encounter Miscellaneous Notes * Telephone Encounter - Napoleon Sanders OSA - 09/22/2023 11:14 AM EST Medical Records Request Med Rec request from [facility] Med Rec forwarded to / documented in this encounter Plan of Treatment Upcoming Encounters Date Type Department Care Team (Late st Contact Info) Description 10/29/2023 7:30 AM EST Office Visit Neurology [facility] [address] [place] [address] Eun Garrison PA-C 21 [facility] [place] [address] Health Maintenance Due Date Last Done Comments Hepatitis B (1 of 3 - 3-dose series) 1994 COVID-19 Vaccine (#1) 06/15/1995 Depression Screening 2006 HIV Screening 2009 Hepatitis C Screening 2012 GARDASIL-HPV IMMUNIZATION SERIES (2 - Male 3-dose series) 09/09/2013 08/12/2013 DTaP,Tdap,and Td Vaccines (1 - Tdap) 2013 Influenza Vaccine (FLU shot) (#1) 2023 08/12/2013, 07/26/2012 Pneumococcal Vaccine: Pediatrics (0 to 5 Years) and At-Risk Patients (6 to 64 Years) Aged Out 08/12/2013 No longer eligible b ased on patient's age to complete this topic MENINGOCOCCAL (MENACTRA/MENVEO) Aged Out No longer eligible b ased on patient's age to complete this topic documented as of this encounter Medical Devices Not on filedocumented as of this encounter Care Teams Dumpling Machine Operator Relationship Specialty Start Date End Date Alex Harp MD [address] [place] [address] PCP - General 11/13/03 documented as of this encounter
--- OUTSIDE RECORDS SUMMARY | 2023-10-04 01:35 | External Medical Summary | Summary of Care ---
Author Name Unknown Organization [facility] Address [address] [place] [address] Phone [phone] Care Team Providers Care Director Of Occupational Therapy Name Role Phone Alex Harp MD Primary Care Provider [phone] Reason for Visit * Reason Onset Date Comments Referral 09/15/2023 psychology Encounter Details Date Type Department Care Team (Late st Contact Info) Description 09/15/2023 Telephone Neurology [facility] [address] [place] [address] Roxanne Puckett MD [address] [facility] [address] Referral (psychology) Allergies No known active allergiesdocumented as of this encounter (statuses as of 09/15/2023) Medications Medication Sig Dispensed Refills Start Date [...] as of this encounter (statuses as of 09/15/2023) Active Problems Problem Noted Date Diagnosed Date 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 documented as of this encounter (statuses as of 09/15/2023) Social History Tobacco Use Types Packs/Day Years [...] encounter Miscellaneous Notes * Telephone Encounter - Nerissa Trinidad OSA - 09/15/2023 1:36 PM EST Please call pt to schedule documented in this encounter Plan of Treatment Upcoming Encounters Date Type Department Care Team (Late st Contact Info) Description 10/29/2023 7:30 AM EST Office Visit Neurology [facility] [place] [address] [place] [address] Eun Garrison PA-C 21 [facility] [place] [address] Health Maintenance Due Date Last Done Comments [...] filedocumented as of this encounter Care Teams Director Of Occupational Therapy Relationship Specialty Start Date End Date Alex Harp MD [address] [place] [address] PCP - General 11/13/03 documented as of this encounter
--- OUTSIDE RECORDS SUMMARY | 2023-10-04 01:35 | External Medical Summary | Summary of Care ---
Author Name Unknown Organization [facility] Address [address] [place] [address] Phone [phone] Care Team Providers Care Material Stockkeeper Yard Name Role Phone Alex Harp MD Primary Care Provider [phone] Reason for Visit * Reason Onset Date Comments Referral 09/15/2023 psychology Encounter Details Date Type Department Care Team (Late st Contact Info) Description 09/15/2023 Telephone Neurology [facility] [address] [place] [address] Roxanne Puckett MD [address] [facility] [address] Referral (psychology) Allergies No known active allergiesdocumented [...] encounter Miscellaneous Notes * Telephone Encounter - Dia Siddiqui OSA - 09/15/2023 2:03 PM EST LMOM for patient to call and schedule intake with psychology. ANTONIA Roth * Telephone Encounter - Nerissa Trinidad OSA - 09/15/2023 1:36 PM EST Please call pt to schedule documented in this encounter Plan of Treatment Upcoming Encounters Date Type Department Care Team (Late st Contact Info) Description 10/29/2023 7:30 AM EST Office Visit Neurology [facility] [address] [place] [address] Eun Garrison PA-C 21 [facility] [place] [address] Health Maintenance Due Date Last Done Comments [...] filedocumented as of this encounter Care Teams Material Stockkeeper Yard Relationship Specialty Start Date End Date Alex Harp MD [address] [facility] [place] [address] PCP - General 11/13/03 documented as of this encounter
--- OUTSIDE RECORDS SUMMARY | 2023-10-04 01:35 | External Medical Summary | Summary of Care ---
Author Name Unknown Organization [facility] Address [address] [place] [address] Phone [phone] Care Team Providers Care Artificial Log Machine Operator Name Role Phone Alex Harp MD Primary Care Provider [phone] Reason for Visit * Reason Onset Date Comments Other 09/14/2023 Encounter Details Date Type Department Care Team (Late st Contact Info) Description 09/14/2023 Telephone Neurology [facility] [address] [place], [place] [phone] Specified, Kami No Resource [address] [place] [address] Other Allergies No known active [...] encounter Miscellaneous Notes * Telephone Encounter - Nelida Spear OSA - 09/21/2023 9:09 AM EST Lesly Mohan is calling stating pt is having issues with the decrease in Keppra would like Dr Puckett to call back at [phone] * Telephone Encounter - Zulema Myers LPN [...] 09/14/2023 11:45 AM EST genex nurse Nalini [phone] fax# Nalini Antonio please fax notes to her. Also,Is he able to drive?cleared from concussion? Work Letter for him if he can return to work, if he is able? Ty documented in this encounter Plan of Treatment Upcoming Encounters Date Type Department Care Team (Late st Contact Info) Description 10/29/2023 7:30 AM EST Office Visit Neurology [facility] [place] [address] [place] [address] Eun Garrison PA-C [address] [place] [address] Health Maintenance Due Date Last Done Comments [...] filedocumented as of this encounter Care Teams Artificial Log Machine Operator Relationship Specialty Start Date End Date Alex Harp MD [address] [place] [address] PCP - General 11/13/03 documented as of this encounter
--- OUTSIDE RECORDS SUMMARY | 2023-10-04 01:35 | External Medical Summary | Summary of Care ---
Author Name Unknown Organization [facility] Address [address] [place] [address] Phone [phone] Care Team Providers Care Kiln Firer Helper Name Role Phone Alex Harp MD Primary Care Provider [phone] Reason for Visit * Reason Onset Date Comments Referral 09/15/2023 psychology Encounter Details Date Type Department Care Team (Late st Contact Info) Description 09/15/2023 Telephone Neurology [facility] [address] [place] [address] Roxanne [facility]uckett MD [address] [facility] [address] Referral (psychology) Allergies No known active allergiesdocumented [...] 10/29/2023 7:30 AM EST Office Visit Neurology [facility] [address] [place] [address] Eun Garrison PA-C 21 [facility] [place] [address] Health Maintenance Due Date Last Done Comments [...] filedocumented as of this encounter Care Teams Kiln Firer Helper Relationship Specialty Start Date End Date Alex Harp MD 132 [facility] [place] [address] PCP - General 11/13/03 documented as of this encounter
--- OUTSIDE RECORDS SUMMARY | 2023-10-04 01:35 | External Medical Summary | Summary of Care ---
Author Name Unknown Organization [facility] Address [address] [place] [address] Phone [phone] Care Team Providers Care Bar Attendant Name Role Phone Alex Harp MD Primary Care Provider [phone] Reason for Referral * Evaluate & Treat - Unlimited Visits (Within 10 days (routine)) - Pending Review Specialty Diagnoses / Procedures Referred By Saran patel Referred To Contact Hematology/Oncology / Hematology Oncology Diagnoses Sickle cell disease (HCC) Hayley Prado DO [address] [place] [address] Referral ID Status Reason Start Date Expiration Date Visits Requested Visits Authorized [id number] Pending Review Specialty Services Required [phone] Question Answer Referral Priority Within 10 days (routine) Where should this appointment be scheduled? ising Reason for Referral Other - Please Comment Comments Sickle-cell disease Encounter Details Date Type Department Care Team (Late st Contact Info) Description 09/24/2023 Orders Only [facility] [place] [facility] [address] [place] [address] Ext *DO NOT REMOVE THIS DEPARTMENT* [place] [address] Request, External Referral Sickle cell disease (HCC)* Allergies No known active allergiesdocumented as of this encounter (statuses as of 09/24/2023) Medications Medication Sig Dispensed Refills Start Date [...] as of this encounter (statuses as of 09/24/2023) Active Problems Problem Noted Date Diagnosed Date 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 documented as of this encounter (statuses as of 09/24/2023) Social History Tobacco Use Types Packs/Day Years Used Date Smoking Tobacco: Never Smokeless Tobacco: Never Comments:No passive smoke ex posure Alcohol Use Standard Drinks/Week Comments Never 0 (1 standard drink = 0.6 oz pur e alcohol) Sex and Gender Information Value Date Recorded Sex Assigned at Male 09/22/2023 11:53 AM EST Gender Identity Male 09/22/2023 11:53 AM EST Sexual Orientation Not on file Job Start Date Occupation Industry Not on file Not on file Not on file documented as of this encounter Plan of Treatment Upcoming Encounters Date Type Department Care Team (Late st Contact Info) Description 10/29/2023 7:30 AM EST Office Visit Neurology [facility] 200 [place] [address] Eun Garrison PA-C 21 [facility] [place] [id number] Scheduled Referrals Name Type Priority Associated Diagnoses Orde r Schedule HEMATOLOGY/ONCOLOGY REFERRAL OP Referral Within 10 days (routine) Sickle cell disease (HCC) Ordered: 09/24/2023 Health Maintenance Due Date Last Done Comments [...] Not on filedocumented as of this encounter Visit Diagnoses Diagnosis Sickle cell disease (HCC)- Primary Sickle-cell disease, unspecified documented in this encounter Care Teams Bar Attendant Relationship Specialty Start Date End Date Alex Harp MD [address] [place] [address] PCP - General 11/13/03 documented as of this encounter
--- OUTSIDE RECORDS SUMMARY | 2023-10-04 01:35 | External Medical Summary | Summary of Care ---
Author Name Unknown Organization [facility] Address [address] [place] [address] Phone [phone] Care Team Providers Care Machine Sneller Name Role Phone Alex Harp MD Primary Care Provider [phone] Reason for Visit * Reason Onset Date Comments Other 09/14/2023 Encounter Details Date Type Department Care Team (Late st Contact Info) Description 09/14/2023 Telephone Neurology [facility] [address] [place], [place] [phone] Specified, Kami No Resource [address] [place] [address] Other Allergies No known active allergiesdocumented as of this encounter (statuses as of 09/17/2023) Medications Medication Sig Dispensed Refills Start Date [...] as of this encounter (statuses as of 09/17/2023) Active Problems Problem Noted Date Diagnosed Date 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 Also,Is he able to drive?cleared from concussion? Work Letter for him if he can return to work, if he is able? Ty documented in this encounter Plan of Treatment Upcoming Encounters Date Type Department Care Team (Late st Contact Info) Description 10/29/2023 7:30 AM EST Office Visit Neurology [facility] [place] 200 [facility] [place] [address] Eun Garrison PA-C [address] [place] [address] Health Maintenance Due Date Last Done Comments [...] filedocumented as of this encounter Care Teams Machine Sneller Relationship Specialty Start Date End Date Alex Harp MD [address] [place] [address] PCP - General 11/13/03 documented as of this encounter
--- OUTSIDE RECORDS SUMMARY | 2023-10-04 01:35 | External Medical Summary | Summary of Care ---
Author Name Unknown Organization [facility] Address [address] [place] [address] Phone [phone] Care Team Providers Care Trimmer Machine Operator Name Role Phone Alex Harp MD Primary Care Provider [phone] Reason for Visit * Reason Onset Date Comments Other 09/14/2023 Encounter Details Date Type Department Care Team (Late st Contact Info) Description 09/14/2023 Telephone Neurology [facility] [address] [place], [place] [phone] Specified, Kami No Resource [address] [place] [address] Other Allergies No known active [...] 09/14/2023 11:45 AM EST genex nurse Nalini [phone] fax# Nalini Antonio please fax notes to her. Also,Is he able to drive?cleared from concussion? Work Letter for him if he can return to work, if he is able? Ty documented in this encounter Plan of Treatment Upcoming Encounters Date Type Department Care Team (Late st Contact Info) Description 10/29/2023 7:30 AM EST Office Visit Neurology [facility] [place] [address] [facility] [place] [address] Eun Garrison PA-C [address] [place] [address] Health Maintenance Due Date Last Done Comments [...] filedocumented as of this encounter Care Teams Trimmer Machine Operator Relationship Specialty Start Date End Date Alex Harp MD 132 [facility] [place] [address] PCP - General 11/13/03 documented as of this encounter
--- OUTSIDE RECORDS SUMMARY | 2023-10-04 01:36 | External Medical Summary | Summary of Care ---
Author Name Unknown Organization [facility] Address [address] [place] [address] Phone [phone] Care Team Providers Care Kitchen Help Handyman Name Role Phone Alex Harp MD Primary Care Provider [phone] Encounter Details Date Type Department Care Team (Late Contact Info) Description 07/07/2023 Orders Only Pediatrics [facility] [address] [place] [facility] [place] [address] Alex Harp MD [address] [place] [address] Allergies No known active allergiesdocumented as of this encounter (statuses as of 09/14/2023) Medications Medication Sig Dispensed Refills Start Date End Date Status FOLIC ACID 1 MG OR TABSIndications:Sick le-cell disease 1 tab daily oral 60 0 11/16/2003 Active Additional Information Patient not taking.Reported on 08/14/2023 documented as of this encounter (statuses as of 09/14/2023) Active Problems Problem Noted Date Diagnosed Date 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 documented as of this encounter (statuses as of 09/14/2023) Social History Tobacco Use Types Packs/Day Years Used Date Smoking Tobacco: Never Assessed Sex and Gender Information Value Date Recorded Sex Assigned at Not on file Gender Identity Not on file Sexual Orientation Not on file Job Start Date Occupation Industry Not on file Not on file Not on file documented as of this encounter Plan of Treatment Upcoming Encounters Date Type Department Care Team (Late Contact Info) Description 10/29/2023 7:30 AM EST Office Visit Neurology [facility] [place] 200 [facility], [place] [address] Eun Garrison PA-C 21 [facility] [place] [address] Health Maintenance Due Date Last Done Comments [...] Not on filedocumented as of this encounter Procedures Procedure Name Priority Date/Time Associated Diagnosis Comments RADIOLOGY EXAM - MRI (IMAGES ONLY, NO REPORT) Routine 07/07/2023 2:45 AM EDT documented in this encounter Results * RADIOLOGY EXAM - MRI (IMAGES ONLY, NO REPORT) (07/07/2023 2:45 AM EDT) 07/07/2023 2:41 AM EDT Narrative Scheduling, Silent - 09/14/2023 6:06 PM EST This is an imaging study not interpreted or resulted by a Tucker Blairer or [id number] contracted radiologist. Alex Harp MD RAD MRI-MRA documented in this encounter Care Teams Kitchen Help Handyman Relationship Specialty Start Date End Date Alex Harp MD [address] [place] [address] PCP - General 11/13/03 documented as of this encounter
--- OUTSIDE RECORDS SUMMARY | 2023-10-04 01:36 | External Medical Summary | Summary of Care ---
Author Name Unknown Organization [facility] Address [address] [place] [address] Phone [phone] Care Team Providers Care Dopster Name Role Phone Alex Harp MD Primary Care Provider [phone] Encounter Details Date Type Department Care Team Description 08/05/2023 Orders Only Laboratory, [facility] [address] [facility] [place] [id number] Hayley Prado, DO [address] [facility] [address] Epileptic seizure (HCC)* Medications Medication Sig Dispensed Refills Start Date End Date Status FOLIC ACID 1 MG OR TABSIndications:Sickle- cell disease 1 tab daily oral 60 0 11/16/2003 Active documented as of this encounter (statuses as of 08/05/2023) Active Problems Problem Noted Date 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 documented as of this encounter (statuses as of 08/05/2023) Social History Tobacco Use Types Packs/Day Years Used Date Smoking Tobacco: Never Assessed Sex Assigned at Date Recorded Not on file documented as of this encounter Plan of Treatment Pending Results Name Type Priority Associated Diagnoses Date /Time CBC WITH WBC DIFFERENTIAL Lab Routine Epileptic seizure (HCC) 08/05/2023 10:12 AM EDT COMPREHENSIVE METABOLIC PANEL Lab Routine Epileptic seizure (HCC) 08/05/2023 10:12 AM EDT LEVETIRACETAM LEVEL Lab Routine Epileptic seizure (HCC) 08/05/2023 10:12 AM EDT TSH WITH FREE T4 IF INDICATED Lab Routine Epileptic seizure (HCC) 08/05/2023 10:12 AM EDT Scheduled Orders Name Type Priority Associated Diagnoses Orde r Schedule CBC WITH WBC DIFFERENTIAL Lab Routine Epileptic seizure (HCC) Expected: 08/05/2023, Expires: 08/05/2024 COMPREHENSIVE METABOLIC PANEL Lab Routine Epileptic seizure (HCC) Expected: 08/05/2023, Expires: 08/05/2024 LEVETIRACETAM LEVEL Lab Routine Epileptic seizure (HCC) Expected: 08/05/2023, Expires: 08/05/2024 TSH WITH FREE T4 IF INDICATED Lab Routine Epileptic seizure (HCC) Expected: 08/05/2023, Expires: 08/05/2024 Health Maintenance Due Date Last Done Comments Hepatitis B (1 of 3 - 3-dose series) 1994 COVID-19 Vaccine (#1) 06/15/1995 Depression Screening 2006 HIV Screening 2009 Hepatitis C Screening 2012 DTaP,Tdap,and Td Vaccines (1 - Tdap) 2013 Influenza Vaccine (FLU shot) (#1) 2023 GARDASIL-HPV IMMUNIZATION SERIES Aged Out No longer eligible based on patient's age to complete this topic MENINGOCOCCAL (MENACTRA/MENVEO) Aged Out No longer eligible based on patient's age to complete this topic Pneumococcal Vaccine: Pediat rics (0 to 5 Years) and At-Risk Patients (6 to 64 Years) Aged Out No longer eligible b ased on patient's age to complete this topic documented as of this encounter Medical Devices Not on filedocumented as of this encounter Visit Diagnoses Diagnosis Epileptic seizure (HCC)- Primary Unspecified epilepsy without mention of intractable epilepsy documented in this encounter Care Teams Dopster Relationship Specialty Start Date End Date Alex Harp MD [address] [place] [address] PCP - General 11/13/03 documented as of this encounter
--- OUTSIDE RECORDS SUMMARY | 2023-10-04 01:36 | External Medical Summary ---
Author Name Unknown Address Unknown Organization [id number]:[facility] [address] - [address] [place] [address] Laboratory Report Ordering Provider Test Date Status JOSIAS BORJAS 08/05/2023 10:12:57 Final Observation Date Value Abnormality Reference (Units ) Status WBC, Total 08/05/2023 10:12:57 9.84 4.00-10.8 0 (K/uL) Final RBC 08/05/2023 10:12:57 2.38 4.50-5.25 (M/uL) Final Hemoglobin 08/05/2023 10:12:57 9.0 Below low normal 14 .0-16.8 (g/dL) Final HCT 08/05/2023 10:12:57 24.5 Below low normal 40. 0-48.4 (%) Final MCV 08/05/2023 10:12:57 102.9 82.0-99.5 (fL) Final MCH 08/05/2023 10:12:57 37.8 27.0-34.0 (pg) Final MCHC 08/05/2023 10:12:57 36.7 32.0-36.0 (g/dL) Final RDW 08/05/2023 10:12:57 21.4 11.5-15.5 (%) Final Platelets 08/05/2023 10:12:57 383 140-400 (K /uL) Final MPV 08/05/2023 10:12:57 9.6 6.6-11.1 ( fL) Final Performing Location [facility] [address] - [address] [place] [address]
--- OUTSIDE RECORDS SUMMARY | 2023-10-04 01:36 | External Medical Summary | Summary of Care ---
Author Name Unknown Organization [facility] Address [address] [place] [address] Phone [phone] Care Team Providers Care Metalsmith Helper Name Role Phone Alex Harp MD Primary Care Provider Encounter Details Date Type Department Care Team (Late Contact Info) Description 07/15/2023 Orders Only Pediatrics [facility] [address] [place] [facility] [place] [address] Alex Harp MD [address] [place] [address] Allergies No known active allergiesdocumented as of [...] AM EST Office Visit [facility]rology [facility] [place] [facility] [place] [address] Eun Garrison PA-C [address] [facility] [place] [address] Health Maintenance Due Date Last Done Comments [...] Date/Time Associated Diagnosis Comments RADIOLOGY EXAM - CT (IMAGES ONLY, NO REPORT) Routine 07/15/2023 6:10 AM EDT documented in this encounter Results * RADIOLOGY EXAM - CT (IMAGES ONLY, NO REPORT) (07/15/2023 6:10 AM EDT) 07/15/2023 6:09 AM EDT Narrative Scheduling, Silent - 09/14/2023 5:48 PM EST This is an imaging study not interpreted or resulted by a [employer] or [facility] contracted radiologist. Alex Harp MD RAD CT documented in this encounter Care Teams Metalsmith Helper Relationship Specialty Start Date End Date Alex Harp MD [address] [place] [address] PCP - General 11/13/03 documented as of this encounter
--- OUTSIDE RECORDS SUMMARY | 2023-10-04 01:36 | External Medical Summary | Summary of Care ---
Author Name Unknown Organization [facility] Address [address] [place] [address] Phone [phone] Care Team Providers Care Exhibits Manager Name Role Phone Alex Harp MD Primary Care Provider [phone] Reason for Referral * Evaluate & Treat - Unlimited Visits (Within 10 days (routine)) - Pending Review Specialty Diagnoses / Procedures Referred By Contcarly t Referred To Contact Psychology Diagnoses Post-concussion syndrome New onset seizure (HCC) Roxanne Puckett MD [address] [place] [address] Referral ID Status Reason Start Date Expiration Date Visits Requested Visits Authorized [id number] Pending Review Specialty Services Required 09/14/[phone] Question Answer Referral Priority Within 10 days (routine) Where should this appointment be scheduled? [facility] Is this referral for medication management? No Referral To [facility] Reason for Referral: Functional Neurologic/PNES Comments Post traumatic spells with neg amb eeg. Pt would like to be seen via video. This is related to a work injury Reason for Visit * Reason Comments Return Neuro Encounter Details Date Type Department Care Team (Late st Contact Info) Description 09/14/2023 11:20 AM EST Office Visit Neurology [facility] [place] [facility] [place] [address] Roxanne Puckett MD [address] [facility] [place] [address] Post-concussion syndrome*; New onset seizure (HCC) Allergies No known active allergiesdocumented as of [...] Date Smoking Tobacco: Never Smokeless Tobacco: Never Tobacco Cessation:Counseling Given: Not Answered Comments:No passive smoke exposure Alcohol Use Standard Drinks/Week Comments Never 0 (1 standard drink = 0.6 oz pur e alcohol) Sex and Gender Information Value Date Recorded Sex Assigned at Not on file Gender Identity Not on file Sexual Orientation Not on file Job Start Date Occupation Industry Not on file Not on file Not on file documented as of this encounter Last Filed Vital Signs Vital Sign Reading Time Taken Comments Blood Pressure 116/66 09/14/2023 11:11 AM EST Pulse 71 09/14/2023 11:11 AM EST Temperature 36.5 C (97.7 F) 09/14/2023 1 1:11 AM EST Respiratory Rate 18 09/14/2023 11:1 1 AM EST Oxygen Saturation 100% 09/14/2023 11: 11 AM EST Inhaled Oxygen Concentration - - Weight 69.2 kg (152 lb 9.6 oz) 09/14/2023 11:11 AM EST Height 182.9 cm (6') 09/14/2023 11:11 AM EST Last height 4 foot incorect Body Mass Index 20.7 09/14/2023 11:11 AM EST documented in this encounter Patient Instructions * Patient Instructions* Roxanne Puckett MD - 09/14/2023 11:39 AM EST We discussed trying amitriptyline or nortriptyline for headache prevention. We discussed tizanidine for headache prevention. You decided to keep taking riboflavin and magnesium for headache prevention, let me know if you change your mind. You may taper off keppra as these not epileptic seizures. Week 1 500 mg (1 pill) in am 250 mg (1/2 pill) in the evening Week 2 250 mg (1/2 pill) in am 250 mg (1/2 pill) in the evening Week 3 250 mg (1/2 pill) in the am Week 4 stop keppra Talk to your primary care provider about referring you to see hematology about sickle cell documented in this encounter Progress Notes * Roxanne Puckett MD - 09/14/2023 12:15 PM EST CLINIC NOTES Neurology [facility] [place] [address] [address] [place] [address] Le Alanis : 1995 NEUROLOGY OUTPATIENT NOTE 09/14/2023 HISTORY: This patient was referred through [facility] for follow-up post episodesof seizure. I have not yet received his MRI or CTA imaging although they were reported as to be noncontributory. This patient has posttraumatic headaches. He is started riboflavin and magnesium. The headaches areless severe and less frequent since starting those medications although they still occur 2 to 3 times a day. He is undergoing concussion therapy at [facility]. They are primarily working on cognition.. He reports ongoing cognitive issues and does not feel he can return yet to work because of thecognitive issues Ambulatory EEG is as follows Electroencephalogram Report Neurophysiology [facility] [place] [address] Name: Le Alanis Age: [age] year old Study Start Date/Time: 08/18/2023; 09:54:51 Study End Date/Time: 08/21/2023; 12:41:11 Location: Ambulatory Referring Physician: Roxanne Puckett MD Clinical Summary: Le Alanis is a/an 27 year old male undergoing EEG evaluation for: Other differentials: paroxysmal event of unclear etiology Neuroactive Medications: Keppra Technical Summary: This digitally acquired electroencephalogram was performed using 21 scalp electrodes in the international 10/20 system placement, with additional scalp, precordial, and other surface electrodes used for electrical referencing and artifact detection. Activation Procedures: No activation procedures were performed for this study period. Background: Normal. Posterior dominant rhythm symmetric. Frequency 9-10 Hz Alpha Organization - organized with an anterior to posterior gradient. Reactivity - present and reactive to external stimuli. Variability - present with distinct states of arousal. Continuity - continuous. EKG: Normal sinus rhythm Sleep: Stage 2 sleep was observed due to the presence of symmetric vertex waves, sleep spindles, and K complexes. Interictal Findings: No evidence of epileptiform abnormalities or focal asymmetries Clinical and Electrographic Events: No electrographic events were captured. Clinical Events: 08/18/2023:Patient reports @ 14:45 "Mini Seizure feeling; severe head pain"; No EEG correlate. Patient reports @ 14:54 "started seizing; refused to go to hospital"; No EEG correlate. Patient reports @ 17:30 "dizziness while laying down"; No EEG correlate. 08/19/2023:Patient reports @ 16:51 " Dizziness/Spinning"; No EEG correlate. Summary of Findings: This is a normal 72-hour ambulatory EEG. There is no evidence of epileptiform activity or focal slowing. There were no clinical or electrographic seizures during this study. The clinical events as noted above as "mini seizure", "starting seizing", "dizziness/spinning" were non epileptic. -- I have reviewed the ambulatory EEG and agree with the findings and report as noted above. Ady Suazo, No past medical history on file. 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 Social History Socioeconomic History Marital status: Single Spouse name: Not on file Number of children: Not on file Years of education: Not on file Highest education level: Not on file Occupational History Not on file Tobacco Use Smoking status: Never Smokeless tobacco: Never Tobacco comments: No passive smoke exposure Vaping Use Vaping Use: Every day Substance and Sexual Activity Alcohol use: Never Drug use: Yes Types: Marijuana Sexual activity: Not on file Other Topics Concern Not on file Social History Narrative Not on file Social Determinants of Health Financial Resource Strain: Not on file Food Insecurity: Not on file Transportation Needs: Not on file Physical Activity: Not on file Stress: Not on file Social Connections: Not on file Intimate Partner Violence: Not on file Housing Stability: Not on file No family history on file. Current Outpatient Medications Medication Sig Dispense Refill FOLIC ACID 1 MG OR TABS 1 tab daily oral (Patient not taking: Reported on 08/14/2023) 60 0 levETIRAcetam 500 MG Oral Tablet (Keppra) Take 1 Tablet by mouth in the morning and 1 Tablet beforebedtime. Riboflavin 400 MG Oral Capsule Take 1 Capsule by mouth in the morning. 30 Capsule 5 Magnesium 400 MG Oral Capsule Take 1 Capsule by mouth in the morning. 30 Capsule 5 No current facility-administered medications for this visit. Review of patient's allergies indicates: No Known Allergies Results for orders placed or performed in visit on 08/05/23 CBC Result Value Ref Range WBC 9.84 4.00 - 10.80 K/uL RBC 2.38 4.50 - 5.25 M/uL HGB 9.0 (L) 14.0 - 16.8 g/dL HCT 24.5 (L) 40.0 - 48.4 % MCV 102.9 82.0 - 99.5 fL MCH 37.8 27.0 - 34.0 pg MCHC 36.7 32.0 - 36.0 g/dL RDW 21.4 11.5 - 15.5 % PLT 383 140 - 400 K/uL MPV 9.6 6.6 - 11.1 fL No results found for: "HEMOGLOBIN A1C" Lab Results Component Value Date/Time NICK BAH 3.32 08/05/2023 10:12 AM No results found for: "AMARA" No results found for: "VJUD07IOO7" No results found for: "IMHP06VKU7" No results found for: "NLTHARBY63GY" No results found for: "25OHVITAMIND" Vitamin D Level Interpretation deficient: <20 ng/ml insufficient: 20-30 ng/ml normal: 31-100 ng/ml REVIEW OF SYSTEMS: As above PHYSICAL EXAM: BP 116/66 (BP Site: Right Arm, BP Position: Sitting, BP Cuff Size: Regular) | Pulse 71 | Temp 36.5 C (97.7 F) (Tympanic) | Resp 18 | Ht 1.829 m (6') Comment: Last height 4 foot incorect | Wt 69.2 kg (152 lb 9.6 oz) | SpO2 100% | BMI 20.70 kg/m | BSA 1.88 m The patient is awake and alert his speech is of very low volume he needs to be reminded of things multiple times and things to be clarified. He has bilateral scleral icterus IMPRESSION: Post concussive headaches. We discussed several options for prophylaxis and these included amitriptyline nortriptyline. He reports some irritability when he took Zoloft so he is concernedabout potentially trying those. We discussed gabapentin and I would have some concerns about mood r elated changes. He has had kidney stones so Topamax is not an option. We discussed potentially using tizanidine although would need to monitor for liver dysfunction. He does have an elevated bilirubin. 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 Psychology consultation for PN ES. Patient should consider psychiatry consultation Cognitive dysfunction post closed head injury continue physical therapy for concussion therapy. Return in 6 weeks. Patient may not return to work at present Roxanne Puckett MD 09/14/2023 12:15 PM documented in this encounter Nursing Notes * Skye Brantley LPN - 09/14/2023 11:10 AM EST Patient verified identity by spelling of last name and date. Return visit Seizures post concussion documented in this encounter Plan of Treatment Upcoming Encounters Date Type Department Care Team (Late st Contact Info) Description 10/29/2023 7:30 AM EST Office Visit Neurology [facility] [place] [address] [place] [address] Eun Garrison PA-C [address] [facility] [place] [address] Scheduled Referrals Name Type Priority Associated Diagnoses Orde r Schedule ADULT/PEDS PSYCHOLOGY REFERRAL OP Referral Within 10 days (routine) Post-concussion syndrome New onset seizure (HCC) Ordered: 09/14/2023 Health Maintenance Due Date Last Done Comments [...] as of this encounter Visit Diagnoses Diagnosis Post-concussion syndrome- Primary Postconcussion syndrome New onset seizure (HCC) Other convulsions documented in this encounter Care Teams Exhibits Manager Relationship Specialty Start Date End Date Alex Harp MD [address] [place] [address] PCP - General 11/13/03 documented as of this encounter
--- OUTSIDE RECORDS SUMMARY | 2023-10-04 01:36 | External Medical Summary | Summary of Care ---
Author Name Unknown Organization [facility] Address [address] [place] [address] Phone [phone] Care Team Providers Care Jointer Machine Operator Name Role Phone Alex Harp MD Primary Care Provider [phone] Reason for Visit * Reason Comments EEG Encounter Details Date Type Department Care Team (Late st Contact Info) Description 08/21/2023 12:30 PM EDT NeuroDiagnostic Study Neurophysiology [facility] [address] [place] [address] Sp, Neurophys Tech [address] [place] [address] Allergies No known active allergiesdocumented as of this encounter (statuses as of 09/01/2023) Medications Medication Sig Dispensed Refills Start Date [...] as of this encounter (statuses as of 09/01/2023) Active Problems Problem Noted Date Diagnosed Date 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 documented as of this encounter (statuses as of 09/01/2023) Social History Tobacco Use Types Packs/Day Years Used Date Smoking Tobacco: Never Smokeless Tobacco: Never Alcohol Use Standard Drinks/Week Comments Never 0 (1 standard drink = 0.6 oz pur e alcohol) Sex and Gender Information Value Date Recorded Sex Assigned at Not on file Gender Identity Not on file Sexual Orientation Not on file Job Start Date Occupation Industry Not on file Not on file Not on file documented as of this encounter Plan of Treatment Health Maintenance Due Date Last Done Comments [...] as of this encounter Visit Diagnoses Diagnosis Seizure-like activity (HCC) [R56.9]- Primary Other convulsions documented in this encounter Care Teams Jointer Machine Operator Relationship Specialty Start Date End Date Alex Harp MD [address] [place] [address] PCP - General 11/13/03 documented as of this encounter
--- OUTSIDE RECORDS SUMMARY | 2023-10-04 01:36 | External Medical Summary | Summary of Care ---
Author Name Unknown Organization [facility] Address [address] [place] [address] Phone [phone] Care Team Providers Care Golf Cart Mechanic Name Role Phone Alex Harp MD Primary Care Provider [phone] Encounter Details Date Type Department Care Team (Latest Contact Info) Description 07/07/2023 2:45 AM EDT - 07/07/2023 11:59 PM EDT Hospital Encounter Radiology Film File [address] [place] [address] Discharge Disposition: Home - Self Care Allergies No known active allergiesdocumented as of [...] AM EST Office Visit Neurology [facility] [place] [address] [place] [address] Eun Garrison PA-C [address] [place] [address] Health Maintenance Due Date Last Done Comments [...] study not interpreted or resulted by a Mobile Location, IP or Mobile Location, IP contracted radiologist. Alex Harp MD RAD MRI-MRA documented in this encounter Care Teams Golf Cart Mechanic Relationship Specialty Start Date End Date Alex Harp MD [address] [place] [address] PCP - General 11/13/03 documented as of this encounter
--- OUTSIDE RECORDS SUMMARY | 2023-10-04 01:36 | External Medical Summary ---
Author Name Unknown Address Unknown Organization K01[place] [place] [address] [place] [address] [place] [address] Laboratory Report Ordering Provider Test Date Status AZ SERRATO 08/27/2023 11:46:11 Final Observation Date Value Abnormality Reference (Units ) Status Levetiracetam level 08/27/2023 11:46:11 14 3-63 (ug/mL) Final Performing Location [facility] [place] [address] [place] [address]
--- OUTSIDE RECORDS SUMMARY | 2023-10-04 01:36 | External Medical Summary | Summary of Care ---
Author Name Unknown Organization [facility] Address [address] [place] [address] Phone [phone] Care Team Providers Care Rafter Cutting Machine Operator Name Role Phone Alex Harp MD Primary Care Provider [phone] Reason for Visit * Reason Comments EEG Encounter Details Date Type Department Care Team (Late st Contact Info) Description 08/18/2023 9:00 AM EDT NeuroDiagnostic Study Neurophysiology [facility] [address] [place] [address] Sp, Neurophys Tech 200 [place] [address] Allergies No known active allergiesdocumented as of this encounter (statuses as of 09/02/2023) Medications Medication Sig Dispensed Refills Start Date [...] as of this encounter (statuses as of 09/02/2023) Active Problems Problem Noted Date Diagnosed Date 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 documented as of this encounter (statuses as of 09/02/2023) Social History Tobacco Use Types Packs/Day Years [...] on file documented as of this encounter Progress Notes * Stuart Ty - 08/27/2023 10:35 AM EDT Electroencephalogram Report Neurophysiology [facility] [place] [address] [facility] [place] [address] Name: Le Alanis Age: [age] year old [...] findings and report as noted above. Ady Suazo DO documented in this encounter Plan of Treatment Health Maintenance [...] convulsions documented in this encounter Care Teams Rafter Cutting Machine Operator Relationship Specialty Start Date End Date Alex Harp MD [address] [place] [address] PCP - General 11/13/03 documented as of this encounter
--- OUTSIDE RECORDS SUMMARY | 2023-10-04 01:36 | External Medical Summary | Summary of Care ---
Author Name Unknown Organization [facility] Address [address] [place] [address] Phone [phone] Care Team Providers Care Wellness Spa Manager Name Role Phone Alex Harp MD Primary Care Provider [phone] Reason for Visit * Reason Comments EEG Encounter Details Date Type Department Care Team (Late st Contact Info) Description 08/18/2023 9:00 AM EDT NeuroDiagnostic Study Neurophysiology [facility] 200 [place] [address] Sp, Neurophys Tech 200 [place] [address] Allergies No known active allergiesdocumented as of [...] convulsions documented in this encounter Care Teams Wellness Spa Manager Relationship Specialty Start Date End Date Alex Harp MD [address] [place] [address] PCP - General 11/13/03 documented as of this encounter
--- OUTSIDE RECORDS SUMMARY | 2023-10-04 01:36 | External Medical Summary | Summary of Care ---
Author Name Unknown Organization [facility] Address [address] [place] [address] Phone [phone] Care Team Providers Care Wooden Barrel Mechanic Name Role Phone Alex Harp MD Primary Care Provider [phone] Reason for Visit * Reason Onset Date Comments Other 09/14/2023 Encounter Details Date Type Department Care Team (Late st Contact Info) Description 09/14/2023 Telephone Neurology [facility] [address] [place], [place] [id number] Specified, Kami No Resource [address] [place] [address] Other Allergies No known active [...] 09/14/2023 11:45 AM EST genex nurse Nalini [phone] fax# Nalini Antonio please fax notes to her. Also,Is he able to drive?cleared from concussion? Work Letter for him if he can return to work, if he is able? Ty documented in this encounter Plan of Treatment Upcoming Encounters Date Type Department Care Team (Late st Contact Info) Description 10/29/2023 7:30 AM EST Office Visit Neurology [facility] [address] [place] [address] Eun Garrison PA-C [address] [facility] [place] [address] Health Maintenance Due Date Last Done Comments [...] filedocumented as of this encounter Care Teams Wooden Barrel Mechanic Relationship Specialty Start Date End Date Alex Harp MD [address] [facility] [place] [address] PCP - General 11/13/03 documented as of this encounter
--- OUTSIDE RECORDS SUMMARY | 2023-10-04 01:36 | External Medical Summary | Summary of Care ---
Author Name Unknown Organization [facility] Address [address] [place] [address] Phone [phone] Care Team Providers Care Records Management Specialist Name Role Phone Alex Harp MD Primary Care Provider Encounter Details Date Type Department Care Team (Latest Contact Info) Description 07/15/2023 6:10 AM EDT - 07/15/2023 11:59 PM EDT Hospital Encounter Radiology Film File [address] [place] [address] Discharge Disposition: Home - Self [...] AM EST Office Visit Neurology [facility] [place] [address] [place] [address] Eun Garrison PA-C [address] [place] [address] Health Maintenance Due Date Last Done Comments [...] study not interpreted or resulted by a [facility] or [facility] contracted radiologist. Alex Harp MD RAD CT documented in this encounter Care Teams Records Management Specialist Relationship Specialty Start Date End Date Alex Harp MD [address] [place] [address] PCP - General 11/13/03 documented as of this encounter
--- OUTSIDE RECORDS SUMMARY | 2023-10-04 01:36 | External Medical Summary | Summary of Care ---
Author Name Unknown Organization [facility] Address [address] [place] [address] Phone [phone] Care Team Providers Care Forestry Faculty Member Name Role Phone Alex Harp MD Primary Care Provider [phone] Reason for Visit * Reason Comments Outpatient Testing Encounter Details Date Type Department Care Team Description 08/27/2023 Laboratory Laboratory [facility] [place] [address] [place] [address] [facility] [address] [place] [id number] Arrived Allergies No known active allergiesdocumented as of this encounter (statuses as of 08/27/2023) Medications Medication Sig Dispensed Refills Start Date [...] as of this encounter (statuses as of 08/27/2023) Active Problems Problem Noted Date 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 documented as of this encounter (statuses as of 08/27/2023) Social History Tobacco Use Types Packs/Day Years Used Date Smoking Tobacco: Never Smokeless Tobacco: Never Alcohol Use Standard Drinks/Week Comments Never 0 (1 standard drink = 0.6 oz pur e alcohol) Sex Assigned at Date Recorded Not on file Job Start Date Occupation [...] filedocumented as of this encounter Care Teams Forestry Faculty Member Relationship Specialty Start Date End Date Alex Harp MD [address] [place] [address] PCP - General 11/13/03 documented as of this encounter
--- OUTSIDE RECORDS SUMMARY | 2023-10-04 01:36 | External Medical Summary ---
Author Name Unknown Address Unknown Organization [id number]:LABORATORY [facility] - [address] [place] [address] Laboratory Report Ordering Provider Test Date Status JOSIAS BORJAS 08/05/2023 10:12:57 Final Observation Date Value Abnormality Reference (Units ) Status Levetiracetam level 08/05/2023 10:12:57 18 3-63 (ug/mL) Final Performing Location LABORATORY [facility] - [address] [place] [address]
--- OUTSIDE RECORDS SUMMARY | 2023-10-04 01:36 | External Medical Summary ---
Author Name Unknown Address Unknown Organization K[facility] [place] [address] [facility] [address] Laboratory Report Ordering Provider Test Date Status JOSIAS BORJAS 08/05/2023 10:12:57 Final Observation Date Value Abnormality Reference (Units ) Status TSH 08/05/2023 10:12:57 3.32 0.27-4.20 (uIU/mL) Final Performing Location [facility] [place] [address] [facility] [address]
--- OUTSIDE RECORDS SUMMARY | 2023-10-04 01:36 | External Medical Summary | Summary of Care ---
Author Name Unknown Organization [facility] Address [address] [place] [place] [address] Phone [phone] Care Team Providers Care Shirt Maker Name Role Phone Alex Harp MD Primary Care Provider [phone] Reason for Referral * Evaluate & Treat - Unlimited Visits (Within 10 days (routine)) - Pending Review Specialty Diagnoses / Procedures Referred By Saran patel Referred To Contact Physical Therapy / Physical Medicine And Rehab Diagnoses Post-concussion syndrome Eun Garrison PA-C [address] [place] [address] Referral ID Status Reason Start Date Expiration Date Visits Requested Visits Authorized [id number] Pending Review Specialty Services Required 3 [phone] Question Answer Referral Priority Within 10 days (routine) Where should this appointment be scheduled? [facility] Reason for Visit * Reason Comments Return Neuro Encounter Details Date Type Department Care Team Description 08/27/2023 Office Visit Neurology [facility] [place] [address] [facility] [place], [place] [address] Eun Garrison PA-C [address] [place] [address] Post-concussion syndrome* Allergies No known active allergiesdocumented as of [...] Sign Reading Time Taken Comments Blood Pressure 134/66 08/27/2023 10:59 AM EDT Pulse 76 08/27/2023 10:59 AM EDT Temperature 36.5 C (97.7 F) 08/27/2023 10:59 AM E DT Respiratory Rate 16 08/27/2023 10:59 AM EDT Oxygen Saturation 91% 08/27/2023 10:59 AM EDT Inhaled Oxygen Concentration - - Weight 67.6 kg (149 lb 1.6 oz) 08/27/2023 10:59 AM EDT Height - - Body Mass Index - - documented in this encounter Progress Notes * Eun Garrison PA-C - 08/27/2023 11:00 AM EDT HISTORY & PHYSICAL EXAMINATION - NEUROLOGY Name: Le Alanis Date: 08/26/2023 Time: 1:06 PM Chief Complaint Patient presents with Return Neuro SUBJECTIVE: Le Alanis is a 27 year old male who returns today for follow- up of concussive headaches and seizure- like activity. PMH includes sickle cell anemia. He was last seen by Dr. Puckett on 08/14/23. - Started mag ox and riboflavin for headache - Ambulatory EEG Today he presents with his girlfriend and geriatric case manager. He states he had one event while wearing theambulatory EEG. Started stuttering and shaking upper and lower extremities. His girlfriend witnessed it. States he looked like he was having a "grand mal" seizure. Lasted 10 minutes. He was dazed andconfused afterwards. No urinary incontinence or tongue biting. She called EMS but he refused to go to the hospital. States he could somewhat hear what was going on around him. Headaches have improved somewhat. Having 2-3x/week vs previously was having headache every day. Hasnot yet started magnesium oxide or riboflavin. Describes difficulty concentrating, difficulty following conversations. HPI from chart review: On 06/26/23 he looked up and hit his head on a piece of metal equipment. No LOC but felt woozy and forgetful. 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 He went to the ER two days later due to headaches. On 07/07/23 he felt pain in his left arm and left chest, closed his eyes and had bilateral shaking activity. Patient could hear what was going on. Jerking lasted 5 minutes and was followed by confusion. Not incontinent. Without waking up had a subsequent 8 minute seizure. Amnestic until he was in the hospital. Had CTA head/neck, MRI brain w/wo and EEG which were normal, and started on Keppra. Since discharge had 3 episodes of bilateral shaking with preserved consciousness. No history of seizures. Born full term lived in [place], came to school in the [facility]. Graduated high school no learning disabilities. No history of head injuries. Allergies: Patient has no known allergies. Problem list: Patient Active Problem List Diagnosis Code Sickle-cell disease 282.6 Past Medical History: No past medical history on file. Current Outpatient Medications: Current Outpatient Medications Medication Sig Dispense Refill levETIRAcetam 500 MG Oral Tablet (Keppra) Take 1 Tablet by mouth in the morning and 1 Tablet beforebedtime. Riboflavin 400 MG Oral Capsule Take 1 Capsule by mouth in the morning. 30 Capsule 5 Magnesium 400 MG Oral Capsule Take 1 Capsule by mouth in the morning. 30 Capsule 5 FOLIC ACID 1 MG OR TABS 1 tab daily oral (Patient not taking: Reported on 08/14/2023) 60 0 No current facility-administered medications for this visit. Family History: No family history on file. SOCIAL HISTORY: Social History Tobacco Use Smoking status: Never Smokeless tobacco: Never Vaping Use Vaping Use: Every day Substance Use Topics Alcohol use: Never Drug use: Yes Types: Marijuana REVIEW OF SYSTEMS: As above OBJECTIVE: Physical Examination: BP 134/66 | Pulse 76 | Temp 36.5 C (97.7 F) (Tympanic) | Resp 16 | Wt 67.6 kg (149 lb 1.6 oz) |SpO2 91% General appearance: healthy, alert, no distress Physical Exam: Constitutional: Appearance normally developed,well nourished,no deformities,well groomed Head and face: normocephalic,atraumatic Psychiatric: normal judgement and insight,normal mood,normal affect NEUROLOGIC EXAMINATION: Mental Status Exam: alert,oriented to time, place, person,normal recent memory,normal remote memory,normal attention span,normal concentration,normal language,normal fund of knowledge LABORATORY: Results for orders placed or performed in [...] - 11.1 fL No results found for: HEMOGLOBIN A1C Lab Results Component Value Date/Time TSH - APPLEER 3.32 08/05/2023 10:12 AM Review of prior Studies: ASSESSMENT/PLAN: Le Alanis is a 27 year old male with concussive headaches and spells of seizure- like activity. PMH includes sickle cell. We do not have records of his ambulatory EEG yet. He did have a typical spell while wearing the EEG. His girlfriend described it as a "grand mal" seizure lasting 10 minutes. Will be in contact with these results. Did not get level last time - Keppra level today. Okay to start magnesium oxide and riboflavin for headache. TCA are also safe in sickle cell. Triptans are contraindicated. Headaches appear to be improving. Will refer to concussion clinic for concussive headache, and difficulty with concentrating. Gave 4 weeks off work until he can be evaluated again. I spent a total of 35 minutes on the date of service in preparation, delivery, and documentation ofthe care provided to Le Alanis. Roxanne Puckett MD available for direct consultation. Eun Garrison PA-C, Neurology [facility] [address] [facility] [place] [address] 08/27/23 11:48 AM documented in this encounter Nursing Notes * Zulema Myers LPN - 08/27/2023 10:59 AM EDT Chief Complaint Patient presents with Return Neuro documented in this encounter Plan of Treatment Scheduled Referrals Name Type Priority Associated Diagnoses Orde r Schedule PHYSICAL THERAPY REFERRAL OP Referral Within 10 days (routine) Post-concussion syndrome Ordered: 08/27/2023 Health Maintenance Due Date Last Done Comments [...] Diagnoses Diagnosis Post-concussion syndrome- Primary Postconcussion syndrome documented in this encounter Care Teams Shirt Maker Relationship Specialty Start Date End Date Alex Harp MD [address] [place] [address] PCP - General 11/13/03 documented as of this encounter
--- OUTSIDE RECORDS SUMMARY | 2023-10-04 01:36 | External Medical Summary | Summary of Care ---
Author Name Unknown Organization [facility] Address [address] [place] [address] Phone [phone] Care Team Providers Care Supervisor Dock Name Role Phone Alex Harp MD Primary Care Provider [phone] Reason for Visit * Reason Onset Date Comments Hospital Follow-Up 07/09/2023 Encounter Details Date Type Department Care Team Description 07/09/2023 Telephone Ancillary [facility] [address] [place], [place] [id number] Skye Solano RN Hospital Follow-Up Medications Medication Sig Dispensed Refills Start Date End Date Status FOLIC ACID 1 MG OR TABSIndications:Sickle- cell disease 1 tab daily oral 60 0 11/16/2003 Active documented as of this encounter (statuses as of 07/09/2023) Active Problems Problem Noted Date 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 documented as of this encounter (statuses as of 07/09/2023) Social History Tobacco Use Types Packs/Day Years Used Date Smoking Tobacco: Never Assessed Sex Assigned at Date Recorded Not on file documented as of this encounter Miscellaneous Notes * Telephone Encounter - Skye Schafer RN - 07/09/2023 8:46 AM EDT Images from the original note were not included. Transitions of Care Note Reason for Referral:Recent Admission Phone visit for follow up: KAY Admitted to: [facility], Date: 07/07/2023 Discharged to: Home Self Care, Date: 07/08/2023 Diagnosis driving hospitalization: New onset seizure Source/Contact: Patient SUBJECTIVE Consent: Verbal consent for review of hospital discharge: Yes REVIEW OF SYSTEMS Patient/Other Reports: Current patient/caregiver problems or concerns: "decent" CV: Denies problems Pulmonary: Denies problems Chills/Sweats/Fever:Denies chills/sweats Denies fever Appetite:Denies problems such as nausea, vomiting, burning, decreased appetite Current diet: regular Bowel: denies problems Bladder: denies problems Wound (If applicable): N/A Pain:Denies Sleep:Denies problems FUNCTIONAL STATUS: ADL'S: Needs Assistance With:N/A as pt is independent IADL'S: Needs Assistance With:N/A as pt is independent Cognitive and Mental Health: denies problems, alert and oriented x 3, and able to communicate, understand instructions, process information. MEDICATION RECONCILIATION Medications: Discharge med list reviewed with patient or caregiver New medication(s) filled since hospitalization- see below Reports all medications taken as prescribed. ASSESSMENT Medication Risk Assessment: No risks identified Did patient fail outpatient treatment? No Discharge instructions available for review? Yes PLAN Symptom Monitoring Interventions:Member/caregiver education - signs and symptoms to contact PrimaryCare (DO NOT DELETE-Three pham symptoms patient is to report to PCP) 1. Cough, SOB, Wheezing 2. Increasing temperature, sweats, chills 3. New seizure activity [employer]icon[employer] Packages SealerAgriculture Extension Specialist of Care interventions/Action Plan: 5 - 7 day follow-up with PCP in place - Date: Jul.14 at [address] Jauregui Educated on role of KAY completed with patient/caregiver. Educated patient/caregiver on patient right to have input on KAY plan of care. Verification of Home Health/DME if indicated: NO n/a Identified Care Gaps: Yes Care Gaps closed this call: Appointment made or confirmed and Transition of Care follow-up communication Re-evaluation of Plan of Care and progress towards goals achievement: Patient education this visit: Verbal, encouraged patient to call office with any questions or concerns. Plan to discharge needs met, verbalizes understanding and agrees with plan. Skye Schafer RN documented in this encounter Plan of Treatment Upcoming Encounters Date Type Specialty Care Team Description 07/14/2023 Office Visit Family Medicine Natividad Jauregui DO [address] [place] [address] Health Maintenance Due Date Last Done Comments Hepatitis B (1 of 3 - 3-dose series) 1994 COVID-19 Vaccine (#1) 06/15/1995 Depression Screening, Annual for Pts 12 and Over 2006 HIV Screening 2009 Hepatitis C Screening [...] filedocumented as of this encounter Care Teams Supervisor Dock Relationship Specialty Start Date End Date Alex Harp MD [address] [place] [address] PCP - General 11/13/03 documented as of this encounter
--- OUTSIDE RECORDS SUMMARY | 2023-10-04 01:36 | External Medical Summary ---
Author Name Unknown Address Unknown Organization K0G:[facility] - [address] [place] [address] Laboratory Report Ordering Provider Test Date Status SUADJOSIAS 08/05/2023 10:12:57 Final Observation Date Value Abnormality Reference (Units ) Status SYNC LEUKOCYTES IN BLOOD BY AUTOMATED COUNT 08/05/2023 10:12:57 9.84 4.00-10.80 (K/uL) Final Neutrophils/100 leukocytes in Blood by Manual count 08/05/2023 10:12:57 50.0 40.0-75.0 (%) Final Lymphocytes/100 leukocytes in Blood by Manual count 08/05/2023 10:12:57 43.0 Above high normal 18.0-42.0 (%) Final Monocytes/100 leukocytes in Blood by Manual count 08/05/2023 10:12:57 2.0 1.0-11.0 (%) Final Eosinophils/100 leukocytes in Blood by Manual count 08/05/2023 10:12:57 5.0 0.0-6.0 (%) Final Neutrophils [#/volume] in Blood by Manual count 08/05/2023 10:12:57 4.92 1.80-7.70 (K/uL) Final Lymphocytes [#/volume] in Blood by Manual count 08/05/2023 10:12:57 4.23 1.00-4.80 (K/uL) Final Monocytes [#/volume] in Blood by Manual count 08/05/2023 10:12:57 0.20 0.00-1.10 (K/uL) Final Eosinophils [#/volume] in Blood by Manual count 08/05/2023 10:12:57 0.49 0.00-0.70 (K/uL) Final Nucleated erythrocytes/100 leukocytes [Ratio] in Blood by Automated count 08/05/2023 10:12:57 3 Above high normal <=0 (/100 WBCs) Final Sickle cells [Presence] in Blood by Light microscopy 08/05/2023 10:12:57 Many Abnormal None Seen Final Variant lymphocytes [Presence] in Blood by Light microscopy 08/05/2023 10:12:57 Present Abnormal None Seen Final Performing Location LABORATORY [facility] [facility] - [address] [place] [address]
--- OUTSIDE RECORDS SUMMARY | 2023-10-04 01:36 | External Medical Summary | Summary of Care ---
Author Name Unknown Organization [facility] Address [address] [place] [address] Phone [phone] Care Team Providers Care Blower And Compressor Assembler Name Role Phone Alex Harp MD Primary Care Provider Reason for Visit * Reason Comments Outpatient Testing Encounter Details Date Type Department Care Team Description 08/05/2023 Laboratory Laboratory, [facility] [address] [place] [address] [facility] [address] [place] [address] Epileptic seizure (HCC) Medications Medication Sig Dispensed Refills Start Date [...] Epileptic seizure (HCC) 08/05/2023 10:12 AM EDT CBC Lab Routine Epileptic seizure (HCC) 08/05/2023 10:12 AM EDT DIFFERENTIAL, AUTOMATED Lab Routine Epileptic seizure (HCC) 08/05/2023 10:12 AM EDT Health Maintenance Due Date Last Done Comments [...] this encounter Visit Diagnoses Diagnosis Epileptic seizure (HCC) Unspecified epilepsy without mention of intractable epilepsy documented in this encounter Care Teams Blower And Compressor Assembler Relationship Specialty Start Date End Date Alex Harp MD [address] [place] [address] PCP - General 11/13/03 documented as of this encounter
--- OUTSIDE RECORDS SUMMARY | 2023-10-04 01:36 | External Medical Summary ---
Author Name Unknown Address Unknown Organization K0G:[facility] - [address] [place] [address] Laboratory Report Ordering Provider Test Date Status JOSIAS BORJAS 08/05/2023 10:12:57 Final Observation Date Value Abnormality Reference (Units ) Status BUN 08/05/2023 10:12:57 8 6-20 (mg/d L) Final Creatinine 08/05/2023 10:12:57 0.7 0.6-1.2 ( mg/dL) Final Result may be falsely decrea sed due to icterus. Glomerular filtration rate/1 .73 sq M.predicted [Volume Rate/Area] in Serum, Plasma or Blood by Creatinine-based formula (CKD-EPI) 08/05/2023 10:12:57 >90 >=60 (mL/min) Final eGFR is calculated based on the CKD-EPI 2020 equation SODIUM 08/05/2023 10:12:57 138 135-146 (m mol/L) Final Potassium 08/05/2023 10:12:57 4.6 3.5-5.1 (m mol/L) Final Cl 08/05/2023 10:12:57 103 98-107 (mm ol/L) Final CO2 08/05/2023 10:12:57 23 22-32 (mmo l/L) Final Anion gap 08/05/2023 10:12:57 12 7-15 (mmol /L) Final Glucose 08/05/2023 10:12:57 93 70-120 (mg /dL) Final Albumin 08/05/2023 10:12:57 5.0 3.8-5.0 (g /dL) Final AST (Aspartate aminotransferase) 08/05/2023 10:12:57 42 10-50 (U/L) Fin al Alk Phos 08/05/2023 10:12:57 80 35-130 (U/ L) Final Bilirubin, Total 08/05/2023 10:12:57 14.6 Above high no rmal <=1.2 (mg/dL) Final Calcium 08/05/2023 10:12:57 9.6 8.4-10.2 ( mg/dL) Final Protein 08/05/2023 10:12:57 7.5 6.0-8.3 (g /dL) Final ALT (Alanine aminotransferase) 08/05/2023 10:12:57 28 10-50 (U/L) Fran hung Performing Location LABORATORY [place] [address] [place] [address]
--- OUTSIDE RECORDS SUMMARY | 2023-10-04 01:36 | External Medical Summary | Summary of Care ---
Author Name Unknown Organization [facility] Address [address] [place] [address] Phone [phone] Care Team Providers Care [employer] Operator Name Role Phone Alex Harp MD Primary Care Provider [phone] Reason for Visit * Reason Comments NEW PATIENT Encounter Details Date Type Department Care Team Description 08/14/2023 Office Visit Neurology [facility] [address] [facility] [place] [address] Roxanne Puckett MD [address] [place] [address] New onset seizure (HCC)* Allergies No known active allergiesdocumented as of this encounter (statuses as of 08/14/2023) Medications Medication Sig Dispensed Refills Start Date [...] as of this encounter (statuses as of 08/14/2023) Active Problems Problem Noted Date 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 documented as of this encounter (statuses as of 08/14/2023) Social History Tobacco Use Types Packs/Day Years Used Date Smoking Tobacco: Never Smokeless Tobacco: Never Tobacco Cessation:Counseling Given: Not Answered Alcohol Use Standard Drinks/Week Comments Never 0 (1 standard drink = 0.6 oz pur e alcohol) Sex Assigned at Date Recorded Not on file Job Start Date Occupation Industry Not on file Not on file Not on file documented as of this encounter Last Filed Vital Signs Vital Sign Reading Time Taken Comments Blood Pressure 122/70 08/14/2023 3:14 PM EDT Pulse 78 08/14/2023 3:14 PM EDT Temperature 36.6 C (97.9 F) 08/14/2023 3:14 PM ED T Respiratory Rate 16 08/14/2023 3:14 PM EDT Oxygen Saturation - - Inhaled Oxygen Concentration - - Weight 68.3 kg (150 lb 8 oz) 08/14/2023 3:14 PM EDT Height - - Body Mass Index - - documented in this encounter Patient Instructions * Patient Instructions* Roxanne Puckett MD - 08/14/2023 4:03 PM EDT Riboflavin 400 mg once day Magnesium 400 mg once once a day If they don't help we will try amitriptyline or nortriptyline documented in this encounter Progress Notes * Roxanne Puckett MD - 08/14/2023 4:46 PM EDT CLINIC NOTES Neurology [address] [address] [place] : 1995 NEUROLOGY OUTPATIENT NOTE 08/14/2023 HISTORY: The patient is referred for consultation by Dr. Barragan, who will be receiving a copy of this note. Reason for consultation hospital admission for seizure. This patient was admitted to [facility] several weeks ago and apparently seen by 1 of the [facility] neurologist. I have only partial records. The patient is a 27-year-old right-handed male with sickle cell anemia who is not currently requiring treatment. He has been receiving his medical care from [facility]. He was in his usual state of health on June 26 working at when these. He looked up in hit his head on a piece of metal equipment he had no loss of consciousness but felt woozy and the room was spinning was forgetful in his orders any returned to working. 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 The patient waited 2 days and went to the emergency room because of headaches. The headaches have been left-sided and right-sided throbbing photophobia. He is taking Tylenol about once a day and is marginally helpful. The headache has not improved significantly he is felt confused his speech has been slurred. On approximately July 07 patient was at home sitting on a couch and he felt pain in his left arm in his left chest he was crying in his girlfriend thought he was panic in his eyes were closed and had violent bilateral shaking activity. The patient indicates that he could hear what was going on while the jerking occurred the jerking lasted 5 minutes he demonstrated the jerking as adduction of the arms with the hands and flexion in the elbows in flexion the legs were jerking as well that seizure lasted 5 minutes and he was confused. He was not incontinent or injured and without waking up he had an 8 minute seizure thereafter leave his significant other has experiences with seizures 911 was john scanlon and the patient is amnestic until he was in the hospital. He was admitted to the hospital andby report had an MRI which I am assuming was normal and an EEG which I do not have the results of and was started on Keppra. Does not sound like been any major negative effect on Keppra he has had about 3 episodes since being discharged of bilateral shaking with preserved consciousness. He has no history of seizure in the past. He was otherwise well. He as far as he knows was born full-term he lived in [place] and came to school in the [employer] [facility] and had to catch up in school but then graduated from high school without learning disabilities he never had meningitis encephalitis he never had headaches prior to this concussion and he never had any other head injury. There is no familyhistory of seizure No medication medication withdrawal alcohol use or alcohol withdrawal. Patient used marijuana priorto having the seizure and concussion but he feels that marijuana has helped his concussive symptoms. He was otherwise well he has not had any fever his weight is been stable. By report on 06/10/20 a CTA of the head and MRV were negative On 07/06/2023 CTA of head and neck and CT head were ordered and said to show no acute intracranial abnormality. MRI brain with and without was said to show no intracranial abnormality. Total bilirubin was 14.7. EEG said to show no acute abnormality. White count was normal hemoglobin 9.1 platelet count 361 sickle cells 3+ nucleated RBCs 2.8. PT PTT normal sodium 139 potassium 3.9 creatinine 0.65 glucose 102 calcium 9.2 magnesium 2. Transaminases normal. Urinalysis positive for urobilinogen. Tox screen positive for marijuana. Viral titers negative No past medical history on file. Patient [...] Current Outpatient Medications Medication Sig Dispense Refill Riboflavin 400 MG Oral Capsule Take 1 [...] in the morning and 1 Tablet beforebedtime. No current facility-administered medications for this visit. [...] HEMOGLOBIN A1C Lab Results Component Value Date/Time NICK BAH 3.32 08/05/2023 10:12 AM No results found for: AMARA No results found for: [id number] No results found for: [id number] No results found for: [id number] No results found for: 25OHVITAMIND Vitamin D Level Interpretation deficient: <20 ng/ml insufficient: 20-30 ng/ml normal: 31-100 ng/ml REVIEW OF SYSTEMS: As above PHYSICAL EXAM: BP 122/70 | Pulse 78 | Temp 36.6 C (97.9 F) (Tympanic) | Resp 16 | Wt 68.3 kg (150 lb 8 oz) Patient is awake and alert speech is low volume affect appropriate minor word- finding difficulty isnoted but no anthony aphasia. He followed simple commands easily and was very pleasant and cooperative his head was diffusely tender pupils were equal I did not appreciate papilledema normal cruz motility facial symmetry plus-minus a mild flattening of left nasolabial fold motor 5/5 no drift normalrapid alternating movements symmetric reflexes downgoing toes. Wlnyhg-ld-irdy sqhw-rx-ooyn are normal gait is very stiff legged although the patient denies pain minor difficulty with tandem Romberg is negative vibration present in the fingers and toes There is scleral icterus which the patient indicates is chronic IMPRESSION: This patient had a minor head injury and has clear concussive headaches. Will begin riboflavin and magnesium for headache prophylaxis. I need to do some review regarding sickle cell and medications and contraindications. If the riboflavin and magnesium are not helpful will see if amitriptyline or nortriptyline or contraindicated. Also will check and see if triptans are contraindicatedin sickle cell they may be The severity of the patient's head injury does not seem to be significant enough to cause new onsetseizure. There is some features that raise the question of whether not this may not be seizure IE the patient is alert but has bilateral shaking activity and some of the subsequent events he has preserved consciousness clearly preserved consciousness and shaking activity. Will check a Keppra level today will perform an ambulatory EEG to see if we can capture any episodes and will obtain his hospital records including MRI. Patient certainly has other risk for seizure and that being sickle cell which puts him at higher risk of stroke, PRES We spoke about seizure safety when to call 911. He may not work at present I will see him back in 4 weeks The patient was strongly encouraged to establish with primary care Roxanne Puckett MD 08/14/2023 4:46 PM documented in this encounter Nursing Notes * TIRSO Foley - 08/14/2023 3:13 PM EDT Chief Complaint Patient presents with NEW PATIENT documented in this encounter Plan of Treatment Upcoming Encounters Date Type Specialty Care Team Description 08/18/2023 NeuroDiagnostic Study Neurophysiology Sp, Neurophys Tech [address] [facility] [place] [address] 08/21/2023 NeuroDiagnostic Study Neurophysiology Sp, Neurophys Tech [address] [place] [address] Scheduled Orders Name Type Priority Associated Diagnoses Orde r Schedule EEG AMBULATORY Procedures Routine New onset seizure (HCC) Ordered: 08/14/2023 EEG ROUTINE Procedures Routine New onset seizure (HCC) Ordered: 08/14/2023 LEVETIRACETAM LEVEL Lab Routine New onset seizure (HCC) Ordered: 08/14/2023 Health Maintenance Due Date Last Done Comments [...] as of this encounter Visit Diagnoses Diagnosis New onset seizure (HCC)- Primary Other convulsions documented in this encounter Care Teams [employer] Operator Relationship Specialty Start Date End Date Alex Harp MD [address] [facility] [place] [address] PCP - General 11/13/03 documented as of this encounter"
[2023-10-04] MEDS ORDERED: SODIUM CHLORIDE 0.9% 1,000 ML IV SCH ×2 (02:00→06:15)
[2023-10-04] MEDS ORDERED: KETOROLAC TROMETHAMINE 15 MG/ML VIAL IV STA (02:25)
[2023-10-04] MEDS ORDERED: MoRPHine SULFATE 4 MG/ML 1 ML CARP\\VIAL IV STA ×2 (02:25→05:18)
[2023-10-04] MEDS ORDERED: ONDANSETRON INJ 2 MG/ML 2 ML VIAL IV STA (02:25)
[2023-10-04 02:57] LABS: Albumin Globulin Ratio 1.7 (0.9-2); Albumin Level 4.6 gm/dl (3.4-5.0); BUN Creatinine Ratio 13.2 (10-20); Bilirubin,Total 16.1 mg/dl (0.2-1.0); Calcium 9.3 mg/dl (8.6-10.3); Est GFR (African American) 143.9 ml/min; Est GFR (Non-African American) 124.2 ml/min; Globulin 2.7 gm/dl (2.5-4.0); Magnesium 2.1 mg/dl (1.7-2.4); Total Protein 7.3 gm/dl (6.0-8.3)
[2023-10-04 03:04] LABS: Potassium 4.4 mmol/L (3.5-5.1); Thyroid Stimulating Hormone 1.575 uIu/ml (0.300-4.500)
[2023-10-04 03:33] LABS: Basophils # (auto) 0.06 K/uL (0.00-0.20); Basophils % (auto) 0.4 %; Eosinophils # (auto) 0.22 K/uL (0.00-0.50); Eosinophils % (auto) 1.3 %; Hematocrit (blood only) 22.4 % (42.0-52.0); Hemoglobin 8.5 g/dl (14.0-18.0); Immature Granulocytes # (auto) 0.08 K/uL (0.01-0.20); Immature Granulocytes % (auto) 0.5 %; Lymphocytes % (auto) 15.8 %; Mean Corpuscular Hemoglobin 38.5 pg (25.0-34.0); Mean Corpuscular Hgb Conc 37.9 g/dL (32.0-36.0); Mean Corpuscular Volume 101.4 fL (80.0-100.0); Mean Platelet Volume 9.6 fL (9.4-12.4); Monocytes # (auto) 1.41 K/uL (0.11-0.59); Monocytes % (auto) 8.6 %; Neutrophils # (auto) 12.04 K/uL (1.40-6.50); Neutrophils % (auto) 73.4 %; Nucleated RBC # (auto) 0.22 K/uL (0.00-0.12); Nucleated RBC % (auto) 1.3 %; Platelet Count 363 K/uL (130-400); RDW Coefficient of Variation 21.4 % (11.5-14.5); RDW Standard Deviation 72.7 fL (36.4-46.3); Red Blood Count 2.21 M/uL (4.70-6.10); White Blood Count 16.41 K/ul (4.8-10.8)
[2023-10-04 04:03] LABS: Reticulocyte % 23.2 % (0.5-2.0); Reticulocytes # 0.55 10^6/uL (0.02-0.10)
[2023-10-04 04:05] LABS: Anisocytosis Present; Pappenheimer Bodies 1+; Polychromasia 1+; Sickle Cells 1+; Target Cells 1+
--- NOTE | 2023-10-04 04:15 | Emergency Department Note ---
Impression & Plan Sickle cell crisis, Anemia ED Provider Note CHIEF COMPLAINT: Bilateral lower extremity pain HISTORY OF PRESENT ILLNESS: This 27-year-old male patient past medical history of sickle cell disease, seizure disorder and marijuana use presents to the emergency department with complaints of right greater than left lower extremity pain. He states at approximately 4 PM today he was getting out of his car. He put both legs down on the ground and he immediately began to experience an aching pain in the bilateral lower extremities. He denies any injuries or repetitive use. He does not feel any change in the discomfort of the legs with rest or exercise, but has had some shortness of breath. He denies any sickle cell crises in the legs in the past. He does usually experience them in the arms bilaterally. He denies any recent illness, no fever, no vomiting. REVIEW OF SYSTEMS: A review of systems was performed with positives and pertinent negatives listed in the history of present illness. 10 systems were reviewed and are otherwise negative. ALLERGIES: see below MEDICATIONS: see below PMH: see below SOCIAL HISTORY: see below DDx: sickle cell crisis, DVT, metabolic abnormality, dehydration, rhabdomyolysis among others. PHYSICAL EXAM: Vital signs reviewed. General: Well-appearing 27-year-old male, in no significant distress. HEENT: No scleral icterus, PERRLA, neck supple. Atraumatic. Cardiovascular: Regular rate and rhythm, no extra sounds. Pulmonary: Clear to auscultation bilaterally, normal work of breathing. Abdomen: Soft, nontender, nondistended, positive bowel sounds. Musculoskeletal: Atraumatic, no peripheral edema. mild tenderness to palpation of the bilateral calves. Neurologic: Patient awake alert and oriented x 3, speech is clear Skin: Warm, dry, no rash EMERGENCY DEPARTMENT COURSE/MDM: this patient was evaluated and appeared to be in some discomfort, but no distress. IV access was obtained and laboratory work was drawn. The patient was hydrated with normal saline solution, given IV morphine and Zofran for his discomfort. Patient was also given IV Toradol with some benefits. Laboratory work reveals a leukocytosis, hyperbilirubinemia, elevated reticulocytes. I did reevaluate the patient who stated the morphine and Toradol initially helped but that his right leg is still bothering him. The left leg seems to let up quite a bit. Second dose of IV morphine was ordered. Given the patient's laboratory work and continued symptoms, [facility]. Patient is aware of the plan and agrees. MONITORING: An order for cardiac monitoring was placed and the patient is noted to be in a normal sinus rhythm 82 beats per minute. RADIOLOGY: chest x-ray to my interpretation reveals no evidence of acute process. Otherwise defer to radiology's overread EKG: to my interpretation reveals a normal sinus rhythm at 75 bpm. Rightward axis. QTc of 433. Possible previous anterior infarct. Normal ST segments. When compared to previous dated July 15, 2023, no significant changes found DISPOSITION: admission Past Med/Surg History Medical History Altered mental status Sickle cell disease Surgical History No pertinent past surgical history Social History Smoking Status: Current every day smoker Tobacco Type: E-cigarettes / Vaping Second Hand Exposure: No; Do You Dip or Chew Tobacco: No; Hx Alcohol Use: No Hx Substance Use: Yes Preferred Language: [place] Communication Ability: Effective Special Education Instructor Required: No Beliefs That Will Affect Care: None Current Living Situation: Family Current Living Situation Comment: Lives w/ half-brother Feels Safe at Home: Yes Assistive Devices: None Allergies Allergies Allergy/AdvReac Type Severity Reaction Status Date / Time No Known Allergies Allergy Verified 07/07/23 01:39 Home Meds Home Medications Medication Instructions Recorded Confirmed No Known Home Medications 06/28/23 07/07/23 Previous Rx's Medication Instructions Recorded levetiracetam 500 mg tablet 500 mg PO BID #60 tabs 07/08/23 (Keppra) Results & Data (ED) Vital Signs Vital Signs - 24 hr 10/04/23 01:30 10/04/23 02:32 10/04/23 02:39 Temperature 36.6 C Temperature Source Temporal Artery Scan Pulse Rate 91 H 76 Pulse Rate [Apical] 73 Pulse Rhythm Regular Pulse Rhythm [Apical] Regular Pulse Strength [Apical] Normal Respiratory Rate 22 18 16 Respiratory Effort / Characteristics Non-Labored Spontaneous Non-Labored Spontaneous Respiratory Depth Normal Normal Respiratory Pattern Regular Blood Pressure 135/71 Blood Pressure [Left Arm] 135/71 Blood Pressure Mean 92 Blood Pressure Mean [Left Arm] 92 Blood Pressure Position [Left Arm] Sitting Pulse Oximetry 100 94 97 Oxygen Delivery Method Room Air Room Air Room Air Sepsis Recent Fever Within 48 Hours No Sepsis New/Unexplained Change in Mental Status No Sepsis Action Taken by Nursing No Action Required 10/04/23 02:45 10/04/23 04:00 10/04/23 06:00 Temperature Temperature Source Pulse Rate 75 Pulse Rate [Apical] 82 92 H Pulse Rhythm Pulse Rhythm [Apical] Regular Regular Pulse Strength [Apical] Normal Normal Respiratory Rate 19 19 Respiratory Effort / Characteristics Non-Labored Spontaneous Non-Labored Spontaneous Respiratory Depth Normal Normal Respiratory Pattern Regular Regular Blood Pressure Blood Pressure [Left Arm] 137/66 126/63 Blood Pressure Mean Blood Pressure Mean [Left Arm] 89 84 Blood Pressure Position [Left Arm] Lying Lying Pulse Oximetry 96 97 Oxygen Delivery Method Room Air Room Air Sepsis Recent Fever Within 48 Hours Sepsis New/Unexplained Change in Mental Status Sepsis Action Taken by Nursing 10/04/23 06:52 Temperature Temperature Source Pulse Rate 85 Pulse Rate [Apical] Pulse Rhythm Pulse Rhythm [Apical] Pulse Strength [Apical] Respiratory Rate Respiratory Effort / Characteristics Respiratory Depth Respiratory Pattern Blood Pressure Blood Pressure [Left Arm] Blood Pressure Mean Blood Pressure Mean [Left Arm] Blood Pressure Position [Left Arm] Pulse Oximetry Oxygen Delivery Method Sepsis Recent Fever Within 48 Hours Sepsis New/Unexplained Change in Mental Status Sepsis Action Taken by [facility]fp Medications Current Medication List: was personally reviewed by me Laboratory Data Attestation: I reviewed the patient's lab results. 10/04/23 03:14 10/04/23 01:58 Lab Results 10/04/23 10/04/23 Range/Units 01:58 03:14 WBC Cancelled 16.41 H RBC Cancelled 2.21 L Hgb Cancelled 8.5 L Hct Cancelled 22.4 L MCV Cancelled 101.4 H MCH Cancelled 38.5 H MCHC Cancelled 37.9 H RDW Std Deviation Cancelled 72.7 H RDW Coeff of Luis Cancelled 21.4 H Plt Count Cancelled 363 MPV Cancelled 9.6 Immature Gran % (Auto) Cancelled 0.5 Neut % (Auto) Cancelled 73.4 Lymph % (Auto) Cancelled 15.8 Cotton % (Auto) Cancelled 8.6 Eos % (Auto) Cancelled 1.3 Baso % (Auto) Cancelled 0.4 Reticulocyte % (Auto) Cancelled 23.2 H Neut # (Auto) Cancelled 12.04 H Lymph # (Auto) Cancelled 2.60 Cotton # (Auto) Cancelled 1.41 H Eos # (Auto) Cancelled 0.22 Baso # (Auto) Cancelled 0.06 Reticulocyte # Cancelled 0.55 H Immature Gran # (Auto) Cancelled 0.08 Absolute Nucleated RBC Cancelled 0.22 H Nucleated RBC % (auto) Cancelled 1.3 Neutrophils % (Manual) Cancelled Band Neutrophils % Cancelled Lymphocytes % (Manual) Cancelled Prolymphocyte % Cancelled Reactive Lymphs % (Man) Cancelled Monocytes % (Manual) Cancelled Eosinophils % (Manual) Cancelled Basophils % (Manual) Cancelled Metamyelocytes % (Man) Cancelled Myelocytes % (Man) Cancelled Promyelocytes % (Man) Cancelled Blast Cells % (Manual) Cancelled Plasma Cell % (Manual) Cancelled Other Cells % Cancelled Nucleated RBC % Cancelled Neutrophils # (Manual) Cancelled Band Neutrophils # Cancelled Total Absolute Neuts Cancelled Lymphocytes # (Manual) Cancelled Prolymphocyte # Cancelled Reactive Lymphs # Cancelled Total Abs Lymphocytes Cancelled Monocytes # (Manual) Cancelled Eosinophils # (Manual) Cancelled Basophils # (Manual) Cancelled Metamyelocytes # (Man) Cancelled Myelocytes # (Manual) Cancelled Promyelocytes # (Man) Cancelled Blast Cells # (Man) Cancelled Plasma Cell # (Manual) Cancelled Other Cells # Cancelled Nucleated RBCs # (Man) Cancelled Hypersegmented Neuts Cancelled Hyposegmented Neuts Cancelled Hypogranular Neuts Cancelled Large Granular Lymphs Cancelled # Lrg Granular Lymphs Cancelled Hairy Cells Cancelled Smudge Cells Cancelled Toxic Granulation Cancelled Toxic Vacuolation Cancelled Dohle Bodies Cancelled Edwar Rods Cancelled Platelet Estimate Cancelled Hypogranular Platelets Cancelled Giant Platelets Cancelled Platelet Satelliting Cancelled RBC Morphology Cancelled Polychromasia Cancelled 1+ Hypochromasia Cancelled Poikilocytosis Cancelled Basophilic Stippling Cancelled Anisocytosis Cancelled Present Microcytosis Cancelled Macrocytosis Cancelled Spherocytes Cancelled Pappenheimer Bodies Cancelled 1+ Sickle Cells Cancelled 1+ Target Cells Cancelled 1+ Tear Drop Cells Cancelled Ovalocytes Cancelled Stomatocytes Cancelled [place] Bodies Cancelled Echinocytes Cancelled Acanthocytes (Spur) Cancelled Rouleaux Cancelled RBC Agglutinates Cancelled Schistocytes Cancelled Sezary Cell Cancelled Sodium 138 (136-145) mmol/L Potassium 4.4 (3.5-5.1) mmol/L Chloride 109 H (98-107) mmol/L Carbon Dioxide 22 (21-32) mmol/L Anion Gap 7 (3-11) BUN 10 (6-23) mg/dl Creatinine 0.76 (0.6-1.4) mg/dl Est Cr Clr Drug Dosing 133.0 ml/min Est GFR ( Amer) 143.9 ml/min Est GFR (Non-Af Amer) 124.2 ml/min BUN/Creatinine Ratio 13.2 (10-20) Glucose 98 (70-99(Fasting)) mg/dl Calcium 9.3 (8.6-10.3) mg/dl Magnesium 2.1 (1.7-2.4) mg/dl Total Bilirubin 16.1 H (0.2-1.0) mg/dl AST 39 (13-39) U/L ALT 20 (7-52) U/L Alkaline Phosphatase 56 (34-104) U/L Total Creatine Kinase 36 (30-223) U/L Total Protein 7.3 (6.0-8.3) gm/dl Albumin 4.6 (3.4-5.0) gm/dl Globulin 2.7 (2.5-4.0) gm/dl Albumin/Globulin Ratio 1.7 (0.9-2) TSH 1.575 (0.300-4.500) uIu/ml Blood Parasites ID Cancelled Administered Medications Sodium Chloride (Nss) 1,000 mls @ 150 mls/hr IV .Q6H40M AMADO Stop: 11/03/23 06:14 Last Admin: 10/04/23 06:24 Dose: 150 mls/hr Documented By: XIOMARA Discontinued Medications Sodium Chloride (Nss) 1,000 mls @ 999 mls/hr IV .Q1H1M AMADO Stop: 10/04/23 03:00 Last Infusion: 10/04/23 03:11 Dose: Infused Documented By: Admin: 10/04/23 02:10 Dose: 999 mls/hr Documented By: XIOMARA Ketorolac Tromethamine (Ketorolac Tromethamine 15 Mg/Ml Vial) 15 mg IV NOW STA Stop: 10/04/23 02:26 Last Admin: 10/04/23 02:32 Dose: 15 mg Documented By: XIOMARA Morphine Sulfate (Morphine Sulfate 4 Mg/Ml 1 Ml Carp\Vial) 4 mg IV NOW STA Stop: 10/04/23 02:26 Last Admin: 10/04/23 02:33 Dose: 4 mg Documented By: XIOMARA Morphine Sulfate (Morphine Sulfate 4 Mg/Ml 1 Ml Carp\Vial) 4 mg IV NOW STA Stop: 10/04/23 05:19 Last Admin: 10/04/23 05:31 Dose: 4 mg Documented By: XIOMARA Ondansetron HCl (Ondansetron Inj 2 Mg/Ml 2 Ml Vial) 4 mg IV NOW STA Stop: 10/04/23 02:26 Last Admin: 10/04/23 02:33 Dose: 4 mg Documented By: XIOMARA Discharge Plan Visit Data Chief Complaint: Leg Injury/Pain Stated Complaint: LEG PAIN ED Provider: Ingrid Beltre Discharge Problem: Sickle cell crisis, Anemia Forms Stand Alone Forms: [facility] Prescriptions Prescriptions: No Action levetiracetam [Keppra] 500 mg tablet 500 mg PO BID Qty: 60 0RF No Known Home Medications Referrals Referrals: Tiffany Bailey CRNP [Primary Care Provider] -
--- NOTE | 2023-10-04 07:58 | Electrocardiogram Report ---
Test Reason : Blood Pressure : / mmHG Vent. Rate : 075 BPM Atrial Rate : 075 BPM P-R Int : 208 ms QRS Dur : 102 ms QT Int : 388 ms P-R-T Axes : 070 091 059 degrees QTc Int : 433 ms Normal sinus rhythm Rightward axis Normal ECG When compared with ECG of 15-JUL-2023 07:39, No significant change was found Confirmed by Farhan Villegas ([id number]) on 10/04/2023 7:58:10 AM Referred By: REFERRED SELF Confirmed By:Farhan Villegas
--- NOTE | 2023-10-04 08:45 | History & Physical Report ---
Date of Service October 04, 2023 Assessment & Plan (1) Bilateral lower extremity pain: Plan: 27-year-old male with past med history significant for sickle disease, chronic anemia baseline hemoglobin around 9, history of vape use presents with bilateral lower extremity abdomen pain started yesterday evening around 4 PM and as pain was not getting better he came to the ER. Bilateral lower extremity pain History of sickle disease mostly acute pain vaso-occlusive Possible sickle cell crisis IV fluids, IV morphine as needed Close monitor Chronic anemia Baseline hemoglobin around 9 Hemoglobin 8.5 today Follow labs Leukocytosis Empiric Rocephin Follow repeat labs and cultures For bilirubin chronic DVT prophylaxis Lovenox Disposition med/telemetry full code History of Present Illness Chief Complaint: Bilateral lower extremity pain Primary Care Provider: HARSHAD Velasquez 27-year-old male with past med history significant for sickle disease, chronic anemia baseline hemoglobin around 9, history of vape use presents with bilateral lower extremity abdomen pain started yesterday evening around 4 PM and as pain was not getting better he came to the ER. With the pain medications pain is somewhat better. Denies any fevers. No chest pain or shortness of breath. No headaches. No blurred visions. No nausea. No cough. No abdominal pain. Normal bowel and bladder movements. No blood in the stools or black stools. No hematuria. Hemodynamics are stable. Past medical history. As mentioned above Past surgical history. Intra-abdominal surgery. Social history. Symptoms ongoing with use. No alcohol use. Family history. Sickle cell disease. Allergies Allergy/AdvReac Type Severity Reaction Status Date / Time No Known Allergies Allergy Verified 10/04/23 08:20 Home Medications Medication Instructions Recorded Confirmed Type folic acid 1 mg tablet 1 mg PO DAILY 10/04/23 10/04/23 History levetiracetam 500 mg tablet 250 mg PO BID 10/04/23 10/04/23 History magnesium oxide 400 mg PO DAILY 10/04/23 10/04/23 History riboflavin (vitamin B2) 400 mg 400 mg PO DAILY 10/04/23 10/04/23 History tablet Past Med/Surg History Medical History Altered mental status Sickle cell disease Surgical History No pertinent past surgical history Social History Smoking Status: Current every day smoker Tobacco Type: E-cigarettes / Vaping Second Hand Exposure: No; Do You Dip or Chew Tobacco: No; Hx Alcohol Use: No Hx Substance Use: Yes Preferred Language: Taiwanese Communication Ability: Effective Lathing Supervisor Required: No Beliefs That Will Affect Care: None Current Living Situation: Family Current Living Situation Comment: Lives w/ half-brother Feels Safe at Home: Yes Assistive Devices: None Review of Systems Review of Systems: All systems reviewed & are unremarkable except as noted in HPI & below Physical Exam Physical Exam: General- Not in distress Head- atraumatic Eyes- PERRL. ENT- oropharynx clear Neck- supple, no JVD. Lungs- clear to auscultation , no wheezing or crackles. Heart- regular rhythm; no murmur, no gallop. Abdomen- normal bowel sounds, soft, nontender, no distension. Extremities- no pretibial edema, no erythema seen.b/l dorsalis pedis palpable. Neuro- alert, oriented x 3; PERRL, no facial palsy; no dysarthria; moves extremities. Skin- warm & dry Results & Data Results & Data Vital Signs (Past 12 Hours) Vital Signs Temp Pulse Pulse Resp BP BP Pulse Ox 10/04/23 07:01 74 18 143/89 H 95 10/04/23 06:52 85 10/04/23 06:00 92 H 19 126/63 97 10/04/23 04:00 82 19 137/66 96 10/04/23 02:45 75 10/04/23 02:39 76 16 97 10/04/23 02:32 73 18 135/71 94 10/04/23 01:30 36.6 C 91 H 22 135/71 100 O2 Del Method 10/04/23 07:01 Room Air 10/04/23 06:52 10/04/23 06:00 Room Air 10/04/23 04:00 Room Air 10/04/23 02:45 10/04/23 02:39 Room Air 10/04/23 02:32 Room Air 10/04/23 01:30 Room Air Diagnostic Findings Laboratory Results WBC 16.41 K/ul (4.8-10.8) H 10/04/23 03:14 RBC 2.21 M/uL (4.70-6.10) L 10/04/23 03:14 Hgb 8.5 g/dl (14.0-18.0) L 10/04/23 03:14 Hct 22.4 % (42.0-52.0) L 10/04/23 03:14 MCV 101.4 fL (80.0-100.0) H 10/04/23 03:14 MCH 38.5 pg (25.0-34.0) H 10/04/23 03:14 MCHC 37.9 g/dL (32.0-36.0) H 10/04/23 03:14 RDW Std Deviation 72.7 fL (36.4-46.3) H 10/04/23 03:14 RDW Coeff of Luis 21.4 % (11.5-14.5) H 10/04/23 03:14 Plt Count 363 K/uL (130-400) 10/04/23 03:14 MPV 9.6 fL (9.4-12.4) 10/04/23 03:14 Immature Gran % (Auto) 0.5 % 10/04/23 03:14 Neut % (Auto) 73.4 % 10/04/23 03:14 Lymph % (Auto) 15.8 % 10/04/23 03:14 [place] % (Auto) 8.6 % 10/04/23 03:14 Eos % (Auto) 1.3 % 10/04/23 03:14 Baso % (Auto) 0.4 % 10/04/23 03:14 Reticulocyte % (Auto) 23.2 % (0.5-2.0) H 10/04/23 03:14 Neut # (Auto) 12.04 K/uL (1.40-6.50) H 10/04/23 03:14 Lymph # (Auto) 2.60 K/uL (1.20-3.40) 10/04/23 03:14 [place] # (Auto) 1.41 K/uL (0.11-0.59) H 10/04/23 03:14 Eos # (Auto) 0.22 K/uL (0.00-0.50) 10/04/23 03:14 Baso # (Auto) 0.06 K/uL (0.00-0.20) 10/04/23 03:14 Reticulocyte # 0.55 10^6/uL (0.02-0.10) H 10/04/23 03:14 Immature Gran # (Auto) 0.08 K/uL (0.01-0.20) 10/04/23 03:14 Absolute Nucleated RBC 0.22 K/uL (0.00-0.12) H 10/04/23 03:14 Nucleated RBC % (auto) 1.3 % 10/04/23 03:14 Neutrophils % (Manual) Cancelled 10/04/23 01:58 Band Neutrophils % Cancelled 10/04/23 01:58 Lymphocytes % (Manual) Cancelled 10/04/23 01:58 Prolymphocyte % Cancelled 10/04/23 01:58 Reactive Lymphs % (Man) Cancelled 10/04/23 01:58 Monocytes % (Manual) Cancelled 10/04/23 01:58 Eosinophils % (Manual) Cancelled 10/04/23 01:58 Basophils % (Manual) Cancelled 10/04/23 01:58 Metamyelocytes % (Man) Cancelled 10/04/23 01:58 Myelocytes % (Man) Cancelled 10/04/23 01:58 Promyelocytes % (Man) Cancelled 10/04/23 01:58 Blast Cells % (Manual) Cancelled 10/04/23 01:58 Plasma Cell % (Manual) Cancelled 10/04/23 01:58 Other Cells % Cancelled 10/04/23 01:58 Nucleated RBC % Cancelled 10/04/23 01:58 Neutrophils # (Manual) Cancelled 10/04/23 01:58 Band Neutrophils # Cancelled 10/04/23 01:58 Total Absolute Neuts Cancelled 10/04/23 01:58 Lymphocytes # (Manual) Cancelled 10/04/23 01:58 Prolymphocyte # Cancelled 10/04/23 01:58 Reactive Lymphs # Cancelled 10/04/23 01:58 Total Abs Lymphocytes Cancelled 10/04/23 01:58 Monocytes # (Manual) Cancelled 10/04/23 01:58 Eosinophils # (Manual) Cancelled 10/04/23 01:58 Basophils # (Manual) Cancelled 10/04/23 01:58 Metamyelocytes # (Man) Cancelled 10/04/23 01:58 Myelocytes # (Manual) Cancelled 10/04/23 01:58 Promyelocytes # (Man) Cancelled 10/04/23 01:58 Blast Cells # (Man) Cancelled 10/04/23 01:58 Plasma Cell # (Manual) Cancelled 10/04/23 01:58 Other Cells # Cancelled 10/04/23 01:58 Nucleated RBCs # (Man) Cancelled 10/04/23 01:58 Hypersegmented Neuts Cancelled 10/04/23 01:58 Hyposegmented Neuts Cancelled 10/04/23 01:58 Hypogranular Neuts Cancelled 10/04/23 01:58 Large Granular Lymphs Cancelled 10/04/23 01:58 # Lrg Granular Lymphs Cancelled 10/04/23 01:58 Hairy Cells Cancelled 10/04/23 01:58 Smudge Cells Cancelled 10/04/23 01:58 Toxic Granulation Cancelled 10/04/23 01:58 Toxic Vacuolation Cancelled 10/04/23 01:58 Dohle Bodies Cancelled 10/04/23 01:58 Edwar Rods Cancelled 10/04/23 01:58 Platelet Estimate Cancelled 10/04/23 01:58 Hypogranular Platelets Cancelled 10/04/23 01:58 Giant Platelets Cancelled 10/04/23 01:58 Platelet Satelliting Cancelled 10/04/23 01:58 RBC Morphology Cancelled 10/04/23 01:58 Polychromasia 1+ 10/04/23 03:14 Hypochromasia Cancelled 10/04/23 01:58 Poikilocytosis Cancelled 10/04/23 01:58 Basophilic Stippling Cancelled 10/04/23 01:58 Anisocytosis Present 10/04/23 03:14 Microcytosis Cancelled 10/04/23 01:58 Macrocytosis Cancelled 10/04/23 01:58 Spherocytes Cancelled 10/04/23 01:58 Pappenheimer Bodies 1+ 10/04/23 03:14 Sickle Cells 1+ 10/04/23 03:14 Target Cells 1+ 10/04/23 03:14 Tear Drop Cells Cancelled 10/04/23 01:58 Ovalocytes Cancelled 10/04/23 01:58 Stomatocytes Cancelled 10/04/23 01:58 [place] Bodies Cancelled 10/04/23 01:58 Echinocytes Cancelled 10/04/23 01:58 Acanthocytes (Spur) Cancelled 10/04/23 01:58 Rouleaux Cancelled 10/04/23 01:58 RBC Agglutinates Cancelled 10/04/23 01:58 Schistocytes Cancelled 10/04/23 01:58 Sezary Cell Cancelled 10/04/23 01:58 Sodium 138 mmol/L (136-145) 10/04/23 01:58 Potassium 4.4 mmol/L (3.5-5.1) 10/04/23 01:58 Chloride 109 mmol/L (98-107) H 10/04/23 01:58 Carbon Dioxide 22 mmol/L (21-32) 10/04/23 01:58 Anion Gap 7 (3-11) 10/04/23 01:58 BUN 10 mg/dl (6-23) 10/04/23 01:58 Creatinine 0.76 mg/dl (0.6-1.4) 10/04/23 01:58 Est Cr Clr Drug Dosing 133.0 ml/min 10/04/23 01:58 Est GFR ( Amer) 143.9 ml/min 10/04/23 01:58 Est GFR (Non-Af Amer) 124.2 ml/min 10/04/23 01:58 BUN/Creatinine Ratio 13.2 (10-20) 10/04/23 01:58 Glucose 98 mg/dl (70-99(Fasting)) 10/04/23 01:58 Calcium 9.3 mg/dl (8.6-10.3) 10/04/23 01:58 Magnesium 2.1 mg/dl (1.7-2.4) 10/04/23 01:58 Total Bilirubin 16.1 mg/dl (0.2-1.0) H 10/04/23 01:58 AST 39 U/L (13-39) 10/04/23 01:58 ALT 20 U/L (7-52) 10/04/23 01:58 Alkaline Phosphatase 56 U/L (34-104) 10/04/23 01:58 Total Creatine Kinase 36 U/L (30-223) 10/04/23 01:58 Total Protein 7.3 gm/dl (6.0-8.3) 10/04/23 01:58 Albumin 4.6 gm/dl (3.4-5.0) 10/04/23 01:58 Globulin 2.7 gm/dl (2.5-4.0) 10/04/23 01:58 Albumin/Globulin Ratio 1.7 (0.9-2) 10/04/23 01:58 TSH 1.575 uIu/ml (0.300-4.500) 10/04/23 01:58 Blood Parasites ID Cancelled 10/04/23 01:58 Code Status & VTE Plan VTE Prophylaxis Plan VTE Prophylaxis will be ordered: Yes
[2023-10-04] MEDS: MoRPHine SULFATE 4 MG/ML 1 ML CARP\\VIAL IV PRN ×3 (09:10→19:48)
--- NOTE | 2023-10-04 09:10 | XRay Report ---
XR chest 1V portable CLINICAL HISTORY: shortness of breath, sickle cell crisis TECHNIQUE: Single frontal radiograph of the chest was obtained. Comparison: Comparison is made to chest radiograph 07/04/2023 FINDINGS: No lines and tubes are seen. Cardiomegaly is noted. The lungs are clear. No evidence of pleural effus ion or pneumothorax. IMPRESSION: No acute chest disease. ACT 112: Negative or not required by law. Electronically signed by: Wyatt Joseph M.D. 10/04/2023 9:07 AM
[2023-10-04] MEDS ORDERED: NITROGLYCERIN SL 0.4 MG/TAB TAB SL PRN (10:24)
[2023-10-04] MEDS ORDERED: POLYETHYLENE (MIRALAX) 17 GM PACK PO PRN (10:24)
[2023-10-04] MEDS ORDERED: NON-FORMULARY MEDICATION (Riboflavin (Vitamin B2) 400 mg Tablet) PO SCH (10:24)
[2023-10-04] MEDS: cefTRIAXone SODIUM 2,000 MG in DEXTROSE 5 % MINI-B 50 ML IV SCH (10:30)
[2023-10-04] MEDS: ENOXAPARIN INJ 40 MG/0.4 ML SYR SQ SCH (10:31)
[2023-10-04] MEDS: SODIUM CHLORIDE 0.9% 1,000 ML IV SCH ×2 (10:31→18:10)
[2023-10-04] MEDS: MAGNESIUM OXIDE 400 MG TAB PO SCH (11:51)
[2023-10-04] MEDS: FOLIC ACID 1 MG TAB PO SCH (11:51)
[2023-10-04] MEDS: levETIRAcetam 500 MG TAB PO SCH ×2 (11:51→19:48)
--- NOTE | 2023-10-04 14:37 | Hospitalist Progress Note ---
Date of Service October 04, 2023 Assessment & Plan (1) Bilateral lower extremity pain: Plan: 27-year-old male with past med history significant for sickle disease, chronic anemia baseline hemoglobin around 9, history of vape use presents with bilateral lower extremity abdomen pain started yesterday evening around 4 PM and as pain was not getting better he came to the ER. Sickle cell crisis Bilateral lower extremity pain Likely secondary to acute pain from [id number] pulses are readily palpable and the legs are not swollen Has been getting significant amount of IV fluids and advised to drink more fluid, IV morphine as needed Already feeling better and will continue current management Started on oral pain medications and getting occasionally IV medications as well Strongly advised to drink more fluid and continue with the IV fluid Chronic anemia Baseline hemoglobin around 9 Hemoglobin 8.5 today Follow labs-hemoglobin remains stable Leukocytosis Empiric Rocephin Follow repeat labs and cultures Antibiotic will be continued for 48 hours doubt any infection Leukocytosis has been improving For bilirubin chronic DVT prophylaxis Lovenox Disposition med/telemetry full code Admission and Anticipated Discharge Date Admission Date: October 04, 2023 Subjective 10/04/2023 and 10/05/2023 The patient was seen and examined in medical telemetry unit He was admitted early this morning with acute pain involving both the lower legs secondary to sickle cell crisis Still having pain Denies any chest pain, palpitation or shortness of breath Feels better but is still having a lot of leg pain Review of Systems Review of Systems: All systems reviewed and are unremarkable except as noted below Physical Exam Physical Exam: Lying in bed with moderate distress due to bilateral leg pain Constitutional: + ill appearing and average body habitus Eyes: PERRL, conjunctivae normal, anicteric sclerae ENMT: external ear and nose normal, oropharynx normal Neck: trachea midline, no thyromegaly Respiratory: no respiratory distress Auscultation: lungs clear to auscultation bilaterally Cardiovascular: Rate/Rhythm: regular rate and regular rhythm; not tachycardic Heart Sounds: normal S1 and normal S2; no murmur Extremities: no edema Gastrointestinal (Abdomen): Inspection/Auscultation: normal bowel sounds; abdomen not distended Percussion/Palpation: abdomen soft; abdomen nontender Musculoskeletal: Ankle: + limited ROM of ankle (Due to extreme pain without significant swelling. Peripheral pulses palpa) Neurologic: normal touch/pain/proprioception and moves all extremities; no focal motor deficits Psychiatric: A+Ox3, euthymic affect Lymphatic: no cervical or axillary lymphadenopathy Results & Data Results & Data Vital Signs (Past 12 Hours) Vital Signs Temp Pulse Pulse Resp BP Pulse Ox O2 Del Method 10/04/23 12:26 36.6 C 80 20 127/66 92 Room Air 10/04/23 10:53 85 10/04/23 09:14 80 19 136/78 90 Room Air 10/04/23 07:01 74 18 143/89 H 95 Room Air 10/04/23 06:52 85 10/04/23 06:00 92 H 19 126/63 97 Room Air 10/04/23 04:00 82 19 137/66 96 Room Air 10/04/23 02:45 75 10/04/23 02:39 76 16 97 Room Air 10/04/23 02:32 73 18 135/71 94 Room Air Laboratory Results Short CBC 10/04/23 10/04/23 Range/Units 01:58 03:14 WBC Cancelled 16.41 H Hgb Cancelled 8.5 L Hct Cancelled 22.4 L Plt Count Cancelled 363 BMP 10/04/23 01:58 Sodium 138 Potassium 4.4 Chloride 109 H Carbon Dioxide 22 BUN 10 Creatinine 0.76 Glucose 98 Calcium 9.3 Cardiac Enzymes 10/04/23 Range/Units 01:58 Total Creatine Kinase 36 (30-223) U/L Liver Function 10/04/23 Range/Units 01:58 Total Bilirubin 16.1 H (0.2-1.0) mg/dl AST 39 (13-39) U/L ALT 20 (7-52) U/L Alkaline Phosphatase 56 (34-104) U/L Albumin 4.6 (3.4-5.0) gm/dl Medications Administered Current Inpatient Medications Enoxaparin Sodium (Enoxaparin Inj 40 Mg/0.4 Ml Syr) 40 mg SQ Q24H AMADO Stop: 11/03/23 10:23 Last Admin: 10/04/23 10:31 Dose: Not Given Folic Acid (Folic Acid 1 Mg Tab) 1 mg PO DAILY AMADO Stop: 11/03/23 10:23 Last Admin: 10/04/23 11:51 Dose: 1 mg Ceftriaxone Sodium 2,000 mg/ (Dextrose) 50 mls @ 100 mls/hr IV Q24H AMADO; Protocol Stop: 10/06/23 08:59 Last Infusion: 10/04/23 11:03 Dose: Infused Sodium Chloride (Nss) 1,000 mls @ 125 mls/hr IV .Q8H AMADO Stop: 11/03/23 10:23 Last Admin: 10/04/23 10:31 Dose: 125 mls/hr Levetiracetam (Levetiracetam 500 Mg Tab) 500 mg PO BID AMADO Stop: 11/03/23 10:44 Last Admin: 10/04/23 11:51 Dose: 500 mg Magnesium Oxide (Magnesium Oxide 400 Mg Tab) 400 mg PO DAILY AMADO Stop: 11/03/23 10:44 Last Admin: 10/04/23 11:51 Dose: 400 mg Morphine Sulfate (Morphine Sulfate 4 Mg/Ml 1 Ml Carp\Vial) 4 mg IV Q4H PRN PRN Reason: Pain Stop: 10/18/23 08:30 Last Admin: 10/04/23 13:17 Dose: 4 mg Nitroglycerin (Nitroglycerin Sl 0.4 Mg/Tab Tab) 0.4 mg SL Q5M PRN PRN Reason: Chest Pain Stop: 11/03/23 10:23 Polyethylene Glycol (Polyethylene (Miralax) 17 Gm Pack) 17 gm PO DAILY PRN PRN Reason: Constipation Stop: 11/03/23 10:23
[2023-10-04 15:27] LABS: Appearance Urine Clear (Clear); Bilirubin Urine Negative (Negative); Blood Urine Negative (Negative); Color Urine Yellow; Glucose Urine UA Negative (Negative); Ketones Urine Negative (Negative); Leukocyte Esterase Urine Negative (Negative); Nitrite Urine Negative (Negative); Protein Urine Negative (Negative); Urobilinogen Urine Negative (Negative)
[2023-10-04] MEDS: oxyCODONE HCL IR 5 MG TAB (IMMEDIATE RELEASE) PO PRN (21:37)
[2023-10-05] MEDS: oxyCODONE HCL IR 5 MG TAB (IMMEDIATE RELEASE) PO PRN ×5 (02:06→21:45)
[2023-10-05] MEDS: SODIUM CHLORIDE 0.9% 1,000 ML IV SCH ×3 (02:07→18:10)
[2023-10-05 06:54] LABS: Basophils # (auto) 0.03 K/uL (0.00-0.20); Basophils % (auto) 0.2 %; Eosinophils # (auto) 0.06 K/uL (0.00-0.50); Eosinophils % (auto) 0.5 %; Hematocrit (blood only) 22.4 % (42.0-52.0); Hemoglobin 8.5 g/dl (14.0-18.0); Immature Granulocytes # (auto) 0.09 K/uL (0.01-0.20); Immature Granulocytes % (auto) 0.7 %; Lymphocytes # (auto) 2.57 K/uL (1.20-3.40); Lymphocytes % (auto) 19.5 %; Mean Corpuscular Hemoglobin 39.2 pg (25.0-34.0); Mean Corpuscular Hgb Conc 37.9 g/dL (32.0-36.0); Mean Corpuscular Volume 103.2 fL (80.0-100.0); Mean Platelet Volume 9.9 fL (9.4-12.4); Monocytes # (auto) 1.59 K/uL (0.11-0.59); Monocytes % (auto) 12.1 %; Neutrophils # (auto) 8.84 K/uL (1.40-6.50); Nucleated RBC # (auto) 0.18 K/uL (0.00-0.12); Nucleated RBC % (auto) 1.4 %; Platelet Count 381 K/uL (130-400); RDW Coefficient of Variation 19.7 % (11.5-14.5); Red Blood Count 2.17 M/uL (4.70-6.10); White Blood Count 13.18 K/ul (4.8-10.8)
[2023-10-05 07:08] LABS: Anion Gap 7 (3-11); BUN Creatinine Ratio 9.1 (10-20); Blood Urea Nitrogen 6 mg/dl (6-23); Calcium 9.1 mg/dl (8.6-10.3); Carbon Dioxide 23 mmol/L (21-32); Chloride 107 mmol/L (98-107); Creatinine Clr Calc Pharmacy 145.9 ml/min; Est GFR (African American) > 150.0 ml/min; Est GFR (Non-African American) 131.6 ml/min; Glucose 99 mg/dl (70-99(Fasting)); Potassium 3.9 mmol/L (3.5-5.1); Sodium 137 mmol/L (136-145)
[2023-10-05] MEDS: FOLIC ACID 1 MG TAB PO SCH (08:25)
[2023-10-05] MEDS: MAGNESIUM OXIDE 400 MG TAB PO SCH (08:25)
[2023-10-05] MEDS: levETIRAcetam 500 MG TAB PO SCH ×2 (08:25→21:46)
[2023-10-05] MEDS: cefTRIAXone SODIUM 2,000 MG in DEXTROSE 5 % MINI-B 50 ML IV SCH (08:29)
[2023-10-05] MEDS: ENOXAPARIN INJ 40 MG/0.4 ML SYR SQ SCH (10:40)
[2023-10-05] MEDS: MoRPHine SULFATE 4 MG/ML 1 ML CARP\\VIAL IV PRN (14:22)
[2023-10-06] MEDS: SODIUM CHLORIDE 0.9% 1,000 ML IV SCH ×3 (02:28→19:01)
[2023-10-06] MEDS: oxyCODONE HCL IR 5 MG TAB (IMMEDIATE RELEASE) PO PRN ×4 (05:32→19:04)
[2023-10-06 07:29] LABS: Basophils # (auto) 0.03 K/uL (0.00-0.20); Basophils % (auto) 0.3 %; Eosinophils # (auto) 0.06 K/uL (0.00-0.50); Eosinophils % (auto) 0.6 %; Hemoglobin 7.7 g/dl (14.0-18.0); Immature Granulocytes # (auto) 0.07 K/uL (0.01-0.20); Immature Granulocytes % (auto) 0.7 %; Lymphocytes # (auto) 2.13 K/uL (1.20-3.40); Lymphocytes % (auto) 20.2 %; Mean Corpuscular Hemoglobin 37.7 pg (25.0-34.0); Mean Corpuscular Hgb Conc 36.7 g/dL (32.0-36.0); Mean Corpuscular Volume 102.9 fL (80.0-100.0); Mean Platelet Volume 10.2 fL (9.4-12.4); Monocytes # (auto) 1.46 K/uL (0.11-0.59); Monocytes % (auto) 13.8 %; Neutrophils % (auto) 64.4 %; Nucleated RBC # (auto) 0.09 K/uL (0.00-0.12); Nucleated RBC % (auto) 0.9 %; Platelet Count 363 K/uL (130-400); RDW Coefficient of Variation 17.6 % (11.5-14.5); RDW Standard Deviation 63.7 fL (36.4-46.3); Red Blood Count 2.04 M/uL (4.70-6.10); White Blood Count 10.55 K/ul (4.8-10.8)
[2023-10-06 07:56] LABS: Polychromasia 2+; Sickle Cells 2+; Target Cells 2+
[2023-10-06 07:57] LABS: Anion Gap 6 (3-11); BUN Creatinine Ratio 8.8 (10-20); Blood Urea Nitrogen 6 mg/dl (6-23); Calcium 8.6 mg/dl (8.6-10.3); Carbon Dioxide 24 mmol/L (21-32); Chloride 107 mmol/L (98-107); Creatinine Clr Calc Pharmacy 148.9 ml/min; Est GFR (African American) > 150.0 ml/min; Glucose 103 mg/dl (70-99(Fasting)); Phosphorus 3.2 mg/dl (2.5-4.9); Potassium 3.7 mmol/L (3.5-5.1); Sodium 137 mmol/L (136-145)
[2023-10-06] MEDS: MAGNESIUM OXIDE 400 MG TAB PO SCH (08:44)
[2023-10-06] MEDS: levETIRAcetam 500 MG TAB PO SCH ×2 (08:45→19:05)
[2023-10-06] MEDS: ENOXAPARIN INJ 40 MG/0.4 ML SYR SQ SCH (08:45)
[2023-10-06] MEDS: FOLIC ACID 1 MG TAB PO SCH (08:45)
[2023-10-06 09:33] LABS: Reticulocyte % 18.5 % (0.5-2.0); Reticulocytes # 0.37 10^6/uL (0.02-0.10)
[2023-10-06 09:43] LABS: Lactate Dehydrogenase 296 U/L (86-244)
[2023-10-06] MEDS: MoRPHine SULFATE 4 MG/ML 1 ML CARP\\VIAL IV PRN (12:51)
--- NOTE | 2023-10-06 13:31 | Hospitalist Progress Note ---
Date of Service October 06, 2023 Assessment & Plan (1) Bilateral lower extremity pain: Plan: 27-year-old male with past med history significant for sickle disease, chronic anemia baseline hemoglobin around 9, history of vape use presents with bilateral lower extremity abdomen pain started yesterday evening around 4 PM and as pain was not getting better he came to the ER. Sickle cell crisis Bilateral lower extremity pain Likely secondary to acute pain from [id number]-[id number] pulses are readily palpable and the legs are not swollen Has been getting significant amount of IV fluids and advised to drink more fluid, IV morphine as needed Already feeling better and will continue current management Started on oral pain medications and getting occasionally IV medications as well Strongly advised to drink more fluid and continue with the IV fluid Is still in crisis and in pain Will continue oral pain medications and occasional IV Please continue to drink more fluid Chronic anemia Baseline hemoglobin around 9 Hemoglobin 8.5 today Follow labs-hemoglobin remains stable Hemoglobin dropped to 7.7-LDH is not elevated but reticulocyte count is elevated but has been improving. Bilirubin is a high too We will get PRP and LFTs tomorrow If hemoglobin goes down further will need to have hematology consult Leukocytosis Empiric Rocephin Follow repeat labs and cultures Antibiotic will be continued for 48 hours doubt any infection Leukocytosis has been improving For bilirubin chronic DVT prophylaxis Lovenox Disposition med/telemetry full code Admission and Anticipated Discharge Date Admission Date: October 04, 2023 Subjective 10/04/2023 and 10/05/2023 The patient was seen and examined in medical telemetry unit He was admitted early this morning with acute pain involving both the lower legs secondary to sickle cell crisis Still having pain Denies any chest pain, palpitation or shortness of breath Feels better but is still having a lot of leg pain 10/06/2023 The patient was seen and examined in medical telemetry unit His pain in the left leg is much better but he still complains significant pain in the right leg No swelling of the ankle but is tender to palpate and also pain with movement Denies any chest pain or palpitation and no fever and or chills Review of Systems Review of Systems: All systems reviewed and are unremarkable except as noted below Physical Exam Physical Exam: Lying in bed with moderate distress due to bilateral leg pain Constitutional: + ill appearing and average body habitus Eyes: PERRL, conjunctivae normal, anicteric sclerae ENMT: external ear and nose normal, oropharynx normal Neck: trachea midline, no thyromegaly Respiratory: no respiratory distress Auscultation: lungs clear to auscultation bilaterally Cardiovascular: Rate/Rhythm: regular rate and regular rhythm; not tachycardic Heart Sounds: normal S1 and normal S2; no murmur Extremities: no edema Gastrointestinal (Abdomen): Inspection/Auscultation: normal bowel sounds; abdomen not distended Percussion/Palpation: abdomen soft; abdomen nontender Musculoskeletal: Ankle: + limited ROM of ankle (Due to extreme pain without significant swelling. Peripheral pulses palpa) Neurologic: normal touch/pain/proprioception and moves all extremities; no f ocal motor deficits Psychiatric: A+Ox3, euthymic affect Lymphatic: no cervical or axillary lymphadenopathy Results & Data Results & Data Vital Signs (Past 12 Hours) Vital Signs Temp Pulse Pulse Resp BP Pulse Ox O2 Del Method 10/06/23 11:08 36.8 C 96 H 18 129/73 95 Room Air 10/06/23 08:00 37.1 C 96 H 18 122/73 92 Room Air 10/06/23 07:00 94 H 10/06/23 03:41 37.6 C H 103 H 16 128/69 95 Room Air Laboratory Results Short CBC 10/06/23 Range/Units 06:21 WBC 10.55 (4.8-10.8) K/ul Hgb 7.7 L (14.0-18.0) g/dl Hct 21.0 L (42.0-52.0) % Plt Count 363 (130-400) K/uL BMP 10/06/23 06:21 Sodium 137 Potassium 3.7 Chloride 107 Carbon Dioxide 24 BUN 6 Creatinine 0.68 Glucose 103 H Calcium 8.6 Medications Administered Current Inpatient Medications Enoxaparin Sodium (Enoxaparin Inj 40 Mg/0.4 Ml Syr) 40 mg SQ Q24H AMADO Stop: 11/03/23 10:23 Last Admin: 10/06/23 08:45 Dose: 40 mg Folic Acid (Folic Acid 1 Mg Tab) 1 mg PO DAILY AMADO Stop: 11/03/23 10: Last Admin: 10/06/23 08:45 Dose: 1 mg Sodium Chloride (Nss) 1,000 mls @ 125 mls/hr IV .Q8H AMADO Stop: 11/03/23 10: Last Admin: 10/06/23 11:39 Dose: 125 mls/hr Levetiracetam (Levetiracetam 500 Mg Tab) 500 mg PO BID AMADO Stop: 11/03/23 10:44 Last Admin: 10/06/23 08:45 Dose: 500 mg Magnesium Oxide (Magnesium Oxide 400 Mg Tab) 400 mg PO DAILY AMADO Stop: 11/03/23 10:44 Last Admin: 10/06/23 08:44 Dose: 400 mg Morphine Sulfate (Morphine Sulfate 4 Mg/Ml 1 Ml Carp\Vial) 4 mg IV Q4H PRN PRN Reason: Severe Pain (Scale 7, 8, 9,10) Stop: 10/18/23 08:30 Last Admin: 10/06/23 12:51 Dose: 4 mg Nitroglycerin (Nitroglycerin Sl 0.4 Mg/Tab Tab) 0.4 mg SL Q5M PRN PRN Reason: Chest Pain Stop: 11/03/23 10:23 Oxycodone HCl (Oxycodone Hcl Ir 5 Mg Tab (Immediate Release)) 5 mg PO Q4H PRN PRN Reason: Moderate Pain (Scale 4, 5, 6) Stop: 10/18/23 21:14 Last Admin: 10/06/23 09:47 Dose: 5 mg Polyethylene Glycol (Polyethylene (Miralax) 17 Gm Pack) 17 gm PO DAILY PRN PRN Reason: Constipation Stop: 11/03/23 10:23
[2023-10-07] MEDS: SODIUM CHLORIDE 0.9% 1,000 ML IV SCH ×3 (02:57→20:35)
[2023-10-07] MEDS: oxyCODONE HCL IR 5 MG TAB (IMMEDIATE RELEASE) PO PRN ×4 (05:09→19:38)
[2023-10-07 07:26] LABS: Hematocrit (blood only) 19.3 % (42.0-52.0); Mean Corpuscular Hemoglobin 36.1 pg (25.0-34.0); Mean Corpuscular Hgb Conc 36.3 g/dL (32.0-36.0); Mean Corpuscular Volume 99.5 fL (80.0-100.0); Mean Platelet Volume 10.7 fL (9.4-12.4); Nucleated RBC # (auto) 0.06 K/uL (0.00-0.12); Nucleated RBC % (auto) 0.7 %; Platelet Count 305 K/uL (130-400); RDW Coefficient of Variation 18.3 % (11.5-14.5); RDW Standard Deviation 62.8 fL (36.4-46.3); Red Blood Count 1.94 M/uL (4.70-6.10); White Blood Count 9.18 K/ul (4.8-10.8)
[2023-10-07 07:32] LABS: Alanine Aminotransferase 13 U/L (7-52); Albumin Globulin Ratio 1.5 (0.9-2); Albumin Level 3.9 gm/dl (3.4-5.0); Alkaline Phosphatase 50 U/L (34-104); Anion Gap 6 (3-11); Aspartate Aminotransferase 22 U/L (13-39); BUN Creatinine Ratio 8.2 (10-20); Bilirubin,Total 18.1 mg/dl (0.2-1.0); Blood Urea Nitrogen 5 mg/dl (6-23); Calcium 8.4 mg/dl (8.6-10.3); Carbon Dioxide 24 mmol/L (21-32); Chloride 107 mmol/L (98-107); Creatinine Clr Calc Pharmacy 165.2 ml/min; Est GFR (African American) > 150.0 ml/min; Est GFR (Non-African American) 135.9 ml/min; Globulin 2.6 gm/dl (2.5-4.0); Glucose 94 mg/dl (70-99(Fasting)); Potassium 3.8 mmol/L (3.5-5.1); Sodium 137 mmol/L (136-145); Total Protein 6.5 gm/dl (6.0-8.3)
[2023-10-07 07:45] LABS: Basophils # (auto) 0.05 K/uL (0.00-0.20); Basophils % (auto) 0.5 %; Eosinophils # (auto) 0.08 K/uL (0.00-0.50); Eosinophils % (auto) 0.9 %; Howell-Jolly Bodies Occasional; Immature Granulocytes # (auto) 0.03 K/uL (0.01-0.20); Immature Granulocytes % (auto) 0.3 %; Lymphocytes # (auto) 2.21 K/uL (1.20-3.40); Lymphocytes % (auto) 24.1 %; Monocytes # (auto) 1.19 K/uL (0.11-0.59); Neutrophils # (auto) 5.62 K/uL (1.40-6.50); Neutrophils % (auto) 61.2 %; Pappenheimer Bodies Occasional; Polychromasia 2+; Sickle Cells 1+; Target Cells 1+
[2023-10-07] MEDS: FOLIC ACID 1 MG TAB PO SCH (08:36)
[2023-10-07] MEDS: ENOXAPARIN INJ 40 MG/0.4 ML SYR SQ SCH (08:36)
[2023-10-07] MEDS: MAGNESIUM OXIDE 400 MG TAB PO SCH (08:36)
[2023-10-07] MEDS: levETIRAcetam 500 MG TAB PO SCH ×2 (08:36→20:35)
--- NOTE | 2023-10-07 10:38 | Oncology Consultation ---
Date of Consultation October 07, 2023 Assessment & Plan (1) Sickle cell crisis: (2) Bilateral lower extremity pain: Plan -Very pleasant gentleman presenting with sickle cell vaso-occlusive crisis. Labs show decline in hemoglobin from prior baseline of 9-7.4. He has appropriate reticulocytosis with no evidence to suggest aplastic crisis. Although declining baseline hemoglobin could be due to hemodilution from IV fluids, he continues to endorse significant pain involving lower extremities despite IV fluids and pain medications. He also has significant hyperbilirubinemia also due to hemolysis from sickle cell crisis. Given all these factors, would recommend transfusing with 1 unit PRBC. Also recommend obtaining anemia panel including iron studies, B12 and folate levels. -Recommend continuing with daily folic acid -Thank you for this consult. Hematology continue following patient while inpatient. I have recommended he follow-up with me outpatient upon discharge to discuss potentially restarting hydroxyurea History of Present Illness Reason for Consultation: sickle cell crises, dropping Hb Attending Physician: Lynsey Ochoa MD History of Present Illness 27-year-old gentleman with history of sickle cell hemoglobin SS disease who presented with bilateral lower extremity pain. Labs obtained on admission revealed hemoglobin of 8.5, heme hematocrit of 22.4, bilirubin of 16.1, reticulocyte percent of 23.2 and absolute reticulocyte count of 0.5. He states that his last sickle cell crisis was about 11 years ago. Prior to that, he had frequent sickle cell crisis for which he required multiple blood transfusions between the ages of 6 and 14. Was seen by coconut jelly roller at [facility] prior to him moving to the [facility]. Was last seen by hematology about 11 years ago. States that he had previously been on hydroxyurea which he stopped taking after his last visit with hematology 11 years ago. He endorses occasional headaches which she attributes to concussion several months ago. Complains of pain involving bilateral lower extremity. Pain is slightly improved with oxycodone. States that he would prefer to not get morphine due to concern for potential addiction. Allergies Allergy/AdvReac Type Severity Reaction Status Date / Time No Known Allergies Allergy Verified 10/04/23 08:20 Home Medications Medication Instructions Recorded Confirmed Type folic acid 1 mg tablet 1 mg PO DAILY 10/04/23 10/04/23 History levetiracetam 500 mg tablet 250 mg PO BID 10/04/23 10/04/23 History magnesium oxide 400 mg PO DAILY 10/04/23 10/04/23 History riboflavin (vitamin B2) 400 mg 400 mg PO DAILY 10/04/23 10/04/23 History tablet Patient History Medical History Altered mental status Sickle cell disease Surgical History No pertinent past surgical history Social History Smoking Status: Current every day smoker Tobacco Type: E-cigarettes / Vaping Second Hand Exposure: No; Do You Dip or Chew Tobacco: No; Hx Alcohol Use: No Hx Substance Use: Yes Preferred Language: Telugu Communication Ability: Effective Post Graduate Intern Required: No Beliefs That Will Affect Care: None Current Living Situation: Family Current Living Situation Comment: Lives w/ half-brother Feels Safe at Home: Yes Assistive Devices: None Results & Data Vital Signs (Past 12 Hours) Vital Signs Temp Pulse Pulse Resp BP Pulse Ox O2 Del Method 10/07/23 07:51 37.5 C 85 18 105/65 93 Room Air 10/07/23 07:50 86 10/07/23 03:25 37.0 C 87 16 125/61 94 Room Air 10/06/23 23:37 36.8 C 89 16 132/75 95 Room Air
[2023-10-07 11:22] LABS: Bilirubin Direct 1.6 mg/dl (0-0.2); Bilirubin,Total 17.4 mg/dl (0.2-1.0)
[2023-10-07 11:36] LABS: Hematocrit (blood only) 20.4 % (42.0-52.0); Hemoglobin 7.4 g/dl (14.0-18.0)
[2023-10-07 11:42] LABS: Ferritin 470.9 ng/ml (8-388)
[2023-10-07 12:00] LABS: Reticulocyte % 18.1 % (0.5-2.0); Reticulocytes # 0.4 10^6/uL (0.02-0.10)
[2023-10-07 13:16] LABS: Folate (Folic Acid),Ser orPlas > 22.30 ng/ml (>5.38)
[2023-10-07 13:17] LABS: Vitamin B12 319 pg/ml (180-914)
[2023-10-07] MEDS ORDERED: SODIUM CHLORIDE 0.9% 250 ML IV PRN (14:22)
[2023-10-07] MEDS ORDERED: ACETAMINOPHEN 325 MG TAB PO SCH (14:30)
--- NOTE | 2023-10-07 16:37 | Hospitalist Progress Note ---
Date of Service October 07, 2023 Assessment & Plan (1) Bilateral lower extremity pain: Plan: 27-year-old male with past med history significant for sickle disease, chronic anemia baseline hemoglobin around 9, history of vape use presents with bilateral lower extremity abdomen pain started yesterday evening around 4 PM and as pain was not getting better he came to the ER. He is being managed for the following: Sickle cell crisis Bilateral lower extremity pain Likely secondary to acute pain from vaso-occlusive crisis - peripheral pulses are readily palpable and the legs are not swollen c/w IVF and pain Mx. Bilirubin high, LDH minimally elevated, retics appropriately elevated. HnH 7.0 in AM, will transfuse 1 unit PRBC. Hematology evaled, appreciate recs c/w folic acid, pain Mx, ivf. LFT and reticulocyte count in AM. Leukocytosis: Status post empiric Rocephin, discontinued. Doubt infection. Patient afebrile. Continue to monitor. DVT prophylaxis Lovenox Disposition med/telemetry full code Admission and Anticipated Discharge Date Admission Date: October 04, 2023 Subjective Patient was seen and examined at bedside. Patient was lying in bed, on room air, reports lower extremity pain ongoing though slightly improved. Patient denies febrile illness/chest pain/abdominal pain/reports eating okay. Reports moving bowels okay. Patient reports shortness of breath with exertion, will transfuse 1 unit PRBC as hemoglobin 7.0 in the morning. Physical Exam Physical Exam: GENERAL: Alert and oriented x3. NAD, on RA. HEENT: No pallor, no icterus. Pupils equal, round and reactive to light. Oral mucosa moist. NECK: No JVD, no neck masses. HEART: S1 and S2 heard. Regular rate and rhythm. No murmur, no gallop. RESPIRATORY SYSTEM: Normal AP diameter. No accessory muscle use. No wheezing, no crackles. ABDOMEN: Soft, bowel sounds present, nontender, no distention. CENTRAL NERVOUS SYSTEM: No facial droop. Speech is clear. Obeys simple commands. Moves extremities. EXTREMITIES: No edema, no erythema seen. decreased rom at bl ankle due to pain Results & Data Results & Data Vital Signs (Past 12 Hours) Vital Signs Temp Pulse Pulse Resp BP Pulse Ox O2 Del Method 10/07/23 16:08 91 H 10/07/23 15:21 36.8 C 91 H 18 132/70 100 Room Air 11/29/23 11:33 36.8 C 102 H 18 133/75 94 Room Air 10/07/23 09:00 Room Air 10/07/23 07:51 37.5 C 85 18 105/65 93 Room Air 10/07/23 07:50 86
[2023-10-08] MEDS: SODIUM CHLORIDE 0.9% 1,000 ML IV SCH ×3 (04:23→20:22)
[2023-10-08 07:09] LABS: Alanine Aminotransferase 13 U/L (7-52); Albumin Level 3.8 gm/dl (3.4-5.0); Alkaline Phosphatase 55 U/L (34-104); Anion Gap 5 (3-11); Aspartate Aminotransferase 18 U/L (13-39); BUN Creatinine Ratio 15.5 (10-20); Bilirubin Direct 1.5 mg/dl (0-0.2); Bilirubin,Total 14.2 mg/dl (0.2-1.0); Blood Urea Nitrogen 9 mg/dl (6-23); Calcium 8.4 mg/dl (8.6-10.3); Carbon Dioxide 23 mmol/L (21-32); Chloride 110 mmol/L (98-107); Creatinine Clr Calc Pharmacy 174.6 ml/min; Est GFR (African American) > 150.0 ml/min; Est GFR (Non-African American) 138.8 ml/min; Glucose 96 mg/dl (70-99(Fasting)); Phosphorus 3.8 mg/dl (2.5-4.9); Sodium 138 mmol/L (136-145); Total Protein 6.5 gm/dl (6.0-8.3)
[2023-10-08 07:12] LABS: Hematocrit (blood only) 20.3 % (42.0-52.0); Hemoglobin 7.5 g/dl (14.0-18.0); Mean Corpuscular Hemoglobin 36.1 pg (25.0-34.0); Mean Corpuscular Hgb Conc 36.9 g/dL (32.0-36.0); Mean Corpuscular Volume 97.6 fL (80.0-100.0); Mean Platelet Volume 9.7 fL (9.4-12.4); Nucleated RBC # (auto) 0.08 K/uL (0.00-0.12); Nucleated RBC % (auto) 0.9 %; Platelet Count 386 K/uL (130-400); RDW Coefficient of Variation 19.3 % (11.5-14.5); RDW Standard Deviation 63.4 fL (36.4-46.3); Red Blood Count 2.08 M/uL (4.70-6.10); White Blood Count 8.76 K/ul (4.8-10.8)
[2023-10-08 07:46] LABS: Reticulocyte % 21.1 % (0.5-2.0); Reticulocytes # 0.45 10^6/uL (0.02-0.10)
--- NOTE | 2023-10-08 08:09 | Progress Note ---
Date of Service October 08, 2023 Assessment & Plan (1) Sickle cell crisis: (2) Bilateral lower extremity pain: Plan -Bilirubin improving which indicates resolving hemolytic crisis -Hb declined to 7.2. Can hold off on transfusion if asymptomatic. Transfuse if Hb is less than 7 or develops worsening pain. -Continue daily folic acid -DVT prophylaxis Admission and Anticipated Discharge Date Admission Date: October 04, 2023 Subjective Received 1 unit PRBC on 10/07/2023. Bilirubin improving. Hemoglobin today of 7.2 Results & Data Vital Signs (Past 12 Hours) Vital Signs Temp Pulse Pulse Resp BP BP Pulse Ox 10/08/23 07:23 10/08/23 05:59 78 10/08/23 04:02 36.7 C 72 18 111/64 96 10/08/23 00:19 90 10/07/23 23:05 36.8 C 84 18 112/64 97 10/07/23 22:37 10/07/23 22:35 36.6 C 83 18 116/61 93 10/07/23 22:05 36.8 C 91 H 18 124/63 95 10/07/23 21:50 36.8 C 86 18 129/70 95 10/07/23 21:28 36.7 C 93 H 18 128/71 95 O2 Del Method 10/08/23 07:23 Room Air 10/08/23 05:59 10/08/23 04:02 Room Air 10/08/23 00:19 10/07/23 23:05 10/07/23 22:37 Room Air 10/07/23 22:35 10/07/23 22:05 10/07/23 21:50 10/07/23 21:28
[2023-10-08] MEDS: levETIRAcetam 500 MG TAB PO SCH ×2 (08:56→20:21)
[2023-10-08] MEDS: MAGNESIUM OXIDE 400 MG TAB PO SCH (08:57)
[2023-10-08] MEDS: FOLIC ACID 1 MG TAB PO SCH (08:57)
[2023-10-08] MEDS: oxyCODONE HCL IR 5 MG TAB (IMMEDIATE RELEASE) PO PRN ×3 (10:19→20:22)
[2023-10-08] MEDS: ENOXAPARIN INJ 40 MG/0.4 ML SYR SQ SCH (10:20)
[2023-10-08 14:58] LABS: Hematocrit (blood only) 23.2 % (42.0-52.0); Hemoglobin 8.4 g/dl (14.0-18.0)
--- NOTE | 2023-10-08 15:49 | Hospitalist Progress Note ---
Date of Service October 08, 2023 Assessment & Plan (1) Bilateral lower extremity pain: Plan: 27-year-old male with past med history significant for sickle disease, chronic anemia baseline hemoglobin around 9, history of vape use presents with bilateral lower extremity abdomen pain started yesterday evening around 4 PM and as pain was not getting better he came to the ER. He is being managed for the following: Sickle cell crisis Bilateral lower extremity pain Likely secondary to acute pain from vaso-occlusive crisis - peripheral pulses are readily palpable and the legs are not swollen c/w IVF and pain Mx. Bilirubin high, LDH minimally elevated, retics appropriately elevated. HnH improving, s/p 1 unit PRBC 10/07. Hematology evaled, appreciate recs c/w folic acid, pain Mx, ivf. LFT and reticulocyte count in AM. Leukocytosis: Status post empiric Rocephin, discontinued. Doubt infection. Patient afebrile. Continue to monitor. DVT prophylaxis Lovenox Disposition med/telemetry full code Admission and Anticipated Discharge Date Admission Date: October 04, 2023 Subjective Patient was seen and examined at bedside. Patient was lying in bed, on room air, reports lower extremity pain ongoing though slightly improved. Able to ambulate somewhat better. Patient denies febrile illness/chest pain/abdominal pain/reports eating okay. Reports moving bowels okay. Patient reports shortness of breath with exertion improving slightly, s/p 1 unit PRBC on 10/07. Physical Exam Physical Exam: GENERAL: Alert and oriented x3. NAD, on RA. HEENT: No pallor, + icterus. Pupils equal, round and reactive to light. Oral mucosa moist. NECK: No JVD, no neck masses. HEART: S1 and S2 heard. Regular rate and rhythm. No murmur, no gallop. RESPIRATORY SYSTEM: Normal AP diameter. No accessory muscle use. No wheezing, no crackles. ABDOMEN: Soft, bowel sounds present, nontender, no distention. CENTRAL NERVOUS SYSTEM: No facial droop. Speech is clear. Obeys simple commands. Moves extremities. EXTREMITIES: No edema, no erythema seen. decreased rom at bl ankle due to pain Results & Data Results & Data Vital Signs (Past 12 Hours) Vital Signs Temp Pulse Pulse Resp BP Pulse Ox O2 Del Method 10/08/23 11:14 36.7 C 86 16 124/65 96 Room Air 10/08/23 08:40 36.7 C 87 19 130/70 96 Room Air 10/08/23 07:23 Room Air 10/08/23 05:59 78 10/08/23 04:02 36.7 C 72 18 111/64 96 Room Air
[2023-10-09] MEDS: oxyCODONE HCL IR 5 MG TAB (IMMEDIATE RELEASE) PO PRN ×4 (03:39→20:10)
[2023-10-09] MEDS: SODIUM CHLORIDE 0.9% 1,000 ML IV SCH (03:40)
[2023-10-09 07:17] LABS: Alanine Aminotransferase 18 U/L (7-52); Albumin Level 3.8 gm/dl (3.4-5.0); Alkaline Phosphatase 55 U/L (34-104); Anion Gap 4 (3-11); Aspartate Aminotransferase 21 U/L (13-39); BUN Creatinine Ratio 10.9 (10-20); Bilirubin Direct 1.1 mg/dl (0-0.2); Bilirubin,Total 11.9 mg/dl (0.2-1.0); Blood Urea Nitrogen 6 mg/dl (6-23); Calcium 8.6 mg/dl (8.6-10.3); Carbon Dioxide 25 mmol/L (21-32); Chloride 110 mmol/L (98-107); Creatinine Clr Calc Pharmacy 184.1 ml/min; Est GFR (African American) > 150.0 ml/min; Est GFR (Non-African American) 141.8 ml/min; Glucose 90 mg/dl (70-99(Fasting)); Sodium 139 mmol/L (136-145); Total Protein 6.5 gm/dl (6.0-8.3)
[2023-10-09 07:20] LABS: Hematocrit (blood only) 19.8 % (42.0-52.0); Hemoglobin 7.2 g/dl (14.0-18.0); Mean Corpuscular Hemoglobin 35.3 pg (25.0-34.0); Mean Corpuscular Hgb Conc 36.4 g/dL (32.0-36.0); Mean Corpuscular Volume 97.1 fL (80.0-100.0); Mean Platelet Volume 9.5 fL (9.4-12.4); Nucleated RBC # (auto) 0.08 K/uL (0.00-0.12); Nucleated RBC % (auto) 0.9 %; Platelet Count 393 K/uL (130-400); RDW Standard Deviation 66.7 fL (36.4-46.3); Red Blood Count 2.04 M/uL (4.70-6.10); Reticulocytes # 0.39 10^6/uL (0.02-0.10); White Blood Count 8.79 K/ul (4.8-10.8)
[2023-10-09] MEDS ORDERED: ACETAMINOPHEN 325 MG TAB PO ONE (07:30)
[2023-10-09] MEDS ORDERED: SODIUM CHLORIDE 0.9% 250 ML IV PRN (07:30)
[2023-10-09] MEDS: levETIRAcetam 500 MG TAB PO SCH ×2 (10:21→20:10)
[2023-10-09] MEDS: ENOXAPARIN INJ 40 MG/0.4 ML SYR SQ SCH (10:21)
[2023-10-09] MEDS: MAGNESIUM OXIDE 400 MG TAB PO SCH (10:21)
[2023-10-09] MEDS: FOLIC ACID 1 MG TAB PO SCH (10:21)
[2023-10-09] MEDS: SODIUM CHLORIDE 0.45 % 1,000 ML IV SCH ×2 (15:39→23:57)
--- NOTE | 2023-10-09 16:40 | Hospitalist Progress Note ---
Date of Service October 09, 2023 Assessment & Plan (1) Bilateral lower extremity pain: Plan: 27-year-old male with past med history significant for sickle disease, chronic anemia baseline hemoglobin around 9, history of vape use presents with bilateral lower extremity abdomen pain started yesterday evening around 4 PM and as pain was not getting better he came to the ER. He is being managed for the following: Sickle cell crisis Bilateral lower extremity pain Likely secondary to acute pain from vaso-occlusive crisis - peripheral pulses are readily palpable and the legs are not swollen c/w IVF and pain Mx. Bilirubin improving, LDH minimally elevated, retics appropriately elevated. HnH 7.2 in am (dropped again, has sob w/ minimal activity), s/p 2 unit PRBC so far. Hematology evaled, appreciate recs c/w folic acid, pain Mx, ivf. LFT and reticulocyte count in AM. Leukocytosis: Status post empiric Rocephin, discontinued. Doubt infection. Patient afebrile. Continue to monitor. DVT prophylaxis Lovenox Disposition med/telemetry full code Admission and Anticipated Discharge Date Admission Date: October 04, 2023 Subjective Patient was seen and examined at bedside. Patient was lying in bed, on room air, reports lower extremity pain improving. Had sob w/ activity, Hb 7.2 in AM, 1 unit prbc transfused, reports improvement in sob w/ activity. Patient denies febrile illness/chest pain/abdominal pain/reports eating okay. Reports moving bowels okay. Physical Exam Physical Exam: GENERAL: Alert and oriented x3. NAD, on RA. HEENT: No pallor, + icterus. Pupils equal, round and reactive to light. Oral mucosa moist. NECK: No JVD, no neck masses. HEART: S1 and S2 heard. Regular rate and rhythm. No murmur, no gallop. RESPIRATORY SYSTEM: Normal AP diameter. No accessory muscle use. No wheezing, no crackles. ABDOMEN: Soft, bowel sounds present, nontender, no distention. CENTRAL NERVOUS SYSTEM: No facial droop. Speech is clear. Obeys simple commands. Moves extremities. EXTREMITIES: No edema, no erythema seen. decreased rom at bl ankle due to pain - improving. Results & Data Results & Data Vital Signs (Past 12 Hours) Vital Signs Temp Pulse Pulse Pulse Resp BP BP 10/09/23 16:14 36.8 C 80 17 10/09/23 11:51 36.6 C 76 15 10/09/23 10:36 36.4 C L 78 15 120/71 10/09/23 10:00 36.4 C L 82 14 127/72 10/09/23 09:30 36.3 C L 82 16 122/69 10/09/23 08:45 36.4 C L 81 14 136/66 10/09/23 08:44 36.4 C L 71 14 129/77 10/09/23 08:28 36.5 C 72 16 123/71 10/09/23 08:14 37.0 C 72 14 132/90 10/09/23 06:00 70 BP Pulse Ox O2 Del Method 10/09/23 16:14 114/56 L 94 Room Air 10/09/23 11:51 111/62 97 Room Air 10/09/23 10:36 98 10/09/23 10:00 94 10/09/23 09:30 96 10/09/23 08:45 96 10/09/23 08:44 98 10/09/23 08:28 97 10/09/23 08:14 97 Room Air 10/09/23 06:00
[2023-10-09] MEDS: MoRPHine SULFATE 4 MG/ML 1 ML CARP\\VIAL IV PRN (17:32)
[2023-10-09 17:38] LABS: Hematocrit (blood only) 25.1 % (42.0-52.0); Hemoglobin 8.9 g/dl (14.0-18.0)
[2023-10-10] MEDS: oxyCODONE HCL IR 5 MG TAB (IMMEDIATE RELEASE) PO PRN (00:41)
[2023-10-10] MEDS: MoRPHine SULFATE 4 MG/ML 1 ML CARP\\VIAL IV PRN (03:53)
[2023-10-10 07:06] LABS: Hematocrit (blood only) 24.3 % (42.0-52.0); Hemoglobin 8.5 g/dl (14.0-18.0); Mean Corpuscular Hemoglobin 34.7 pg (25.0-34.0); Mean Corpuscular Volume 99.2 fL (80.0-100.0); Mean Platelet Volume 9.8 fL (9.4-12.4); Nucleated RBC # (auto) 0.06 K/uL (0.00-0.12); Nucleated RBC % (auto) 0.8 %; Platelet Count 424 K/uL (130-400); RDW Coefficient of Variation 18.8 % (11.5-14.5); Red Blood Count 2.45 M/uL (4.70-6.10); White Blood Count 7.77 K/ul (4.8-10.8)
[2023-10-10 07:20] LABS: Alanine Aminotransferase 31 U/L (7-52); Alkaline Phosphatase 64 U/L (34-104); Anion Gap 6 (3-11); Aspartate Aminotransferase 29 U/L (13-39); BUN Creatinine Ratio 14.9 (10-20); Bilirubin,Total 9.7 mg/dl (0.2-1.0); Blood Urea Nitrogen 7 mg/dl (6-23); Calcium 8.8 mg/dl (8.6-10.3); Carbon Dioxide 24 mmol/L (21-32); Chloride 108 mmol/L (98-107); Creatinine Clr Calc Pharmacy 206.9 ml/min; Est GFR (African American) > 150.0 ml/min; Est GFR (Non-African American) > 150.0 ml/min; Glucose 96 mg/dl (70-99(Fasting)); Potassium 3.9 mmol/L (3.5-5.1); Sodium 138 mmol/L (136-145); Total Protein 6.8 gm/dl (6.0-8.3)
[2023-10-10 07:54] LABS: Reticulocyte % 21.2 % (0.5-2.0)
[2023-10-10] MEDS: FOLIC ACID 1 MG TAB PO SCH (08:51)
[2023-10-10] MEDS: MAGNESIUM OXIDE 400 MG TAB PO SCH (08:51)
[2023-10-10] MEDS: levETIRAcetam 500 MG TAB PO SCH (08:51)
--- NOTE | 2023-10-10 10:12 | Progress Note ---
Date of Service October 10, 2023 Assessment & Plan (1) Sickle cell crisis: (2) Anemia: Plan Doing well from sickle cell standpoint with resolution of vaso-occlusive crisis and continued improvement in hemolysis. Appears clinically stable and can be discharged home. Can discharge home with oxycodone 5 mg every 6 hours as needed. Continue with daily folic acid. He will follow-up with me upon discharge from hospital to discuss potentially restarting hydroxyurea. Admission and Anticipated Discharge Date Admission Date: October 04, 2023 Subjective Doing a lot better. States that pain has significantly improved/resolved. Hemoglobin remained stable at 8.5 after he received total of 2 units of PRBC transfusion since admission. Bilirubin also continues to improve Results & Data Vital Signs (Past 12 Hours) Vital Signs Temp Pulse Resp BP Pulse Ox O2 Del Method 10/10/23 07:34 36.4 C L 70 13 122/74 98 Room Air 10/10/23 03:40 36.5 C 72 18 106/38 L 94 Room Air 10/09/23 22:48 37.0 C 75 18 143/74 H 98 Room Air
--- NOTE | 2023-10-10 12:18 | Discharge Summary ---
Date of Service October 10, 2023 Admission HPI Per Admitting Provider 27-year-old male with past med history significant for sickle disease, chronic anemia baseline hemoglobin around 9, history of vape use presents with bilateral lower extremity abdomen pain started yesterday evening around 4 PM and as pain was not getting better he came to the ER. With the pain medications pain is somewhat better. Denies any fevers. No chest pain or shortness of breath. No headaches. No blurred visions. No nausea. No cough. No abdominal pain. Normal bowel and bladder movements. No blood in the stools or black stools. No hematuria. Hemodynamics are stable. Past medical history. As mentioned above Past surgical history. Intra-abdominal surgery. Social history. Symptoms ongoing with use. No alcohol use. Family history. Sickle cell disease. Admission Exam Per Admitting Provider General- Not in distress Head- atraumatic Eyes- PERRL. ENT- oropharynx clear Neck- supple, no JVD. Lungs- clear to auscultation , no wheezing or crackles. Heart- regular rhythm; no murmur, no gallop. Abdomen- normal bowel sounds, soft, nontender, no distension. Extremities- no pretibial edema, no erythema seen.b/l dorsalis pedis palpable. Neuro- alert, oriented x 3; PERRL, no facial palsy; no dysarthria; moves extremities. Skin- warm & dry Principal Diagnosis Sickle cell crisis Discharge Exam GENERAL: Alert and oriented x3. NAD, on RA. HEENT: No pallor, + icterus. Pupils equal, round and reactive to light. Oral mucosa moist. NECK: No JVD, no neck masses. HEART: S1 and S2 heard. Regular rate and rhythm. No murmur, no gallop. RESPIRATORY SYSTEM: Normal AP diameter. No accessory muscle use. No wheezing, no crackles. ABDOMEN: Soft, bowel sounds present, nontender, no distention. CENTRAL NERVOUS SYSTEM: No facial droop. Speech is clear. Obeys simple commands. Moves extremities. EXTREMITIES: No edema, no erythema seen. decreased rom at bl ankle due to pain - improving. Discharge Data Allergies Allergy/AdvReac Type Severity Reaction Status Date / Time No Known Allergies Allergy Verified 10/04/23 08:20 Consultations 10/04/23 05:35 ED Decision to Admit Stat 10/07/23 09:32 Consult Oncology Routine Hospital Course (1) Bilateral lower extremity pain: 27-year-old male with past med history significant for sickle disease, chronic anemia baseline hemoglobin around 9, history of vape use presents with bilateral lower extremity abdomen pain started yesterday evening around 4 PM and as pain was not getting better he came to the ER. He was managed for the following: Sickle cell crisis Bilateral lower extremity pain Likely secondary to acute pain from vaso-occlusive crisis - peripheral pulses are readily palpable and the legs are not swollen c/w IVF and pain Mx. Bilirubin improving, s/p 2 unit PRBC so far. HnH stable. Pain better and moving around with no problem. Hematology evaled, appreciate recs c/w folic acid, pain Mx on DC. f/u hematology and pcp on dc. Leukocytosis: Status post empiric Rocephin, discontinued. Doubt infection. Patient afebrile. DVT prophylaxis Lovenox Full Code Patient is being discharged to home with following instruction at the point of discharge: Follow-up with your primary care physician within a week time and likely you will need labs CBC/CMP/magnesium/phosphorus. Establish and follow-up with your primary care physician within a week time. Establish and follow-up with your hematology doctor in 1 to 2 weeks time upon discharge for ongoing management of your sickle cell anemia. You will be discharged on pain medications for few days, take them as needed for severe pain. If ongoing pain/if you need more pain medication, you will need further evaluation by your PCP. Continue with folic acid supplement. Continue with your prior to arrival dose of Keppra, follow up with your doctor for penitentiary monitoring. Take your medications as prescribed. Please make sure that you are able to get your medications today by calling your pharmacy before you leave the hospital so that your treatment continuity is not broken. Home Health Attestation I certify that this patient is under my care and that I, or a physicians assistant pastry chef working with me, had a face to-face encounter that meets the home health [id number] encounter requirements with this patient. The encounter with the patient was in whole, or in part, for the following medical condition, which is the primary reason for home health care (list medical condition): I certify that, based on my findings, the following services are medically necessary home health services: My clinical findings support the need for the above services because: Further, I certify that my clinical findings support that this patient is homebound (i.e. absences from home require considerable and taxing effort and are for medical reasons or denominational services or infrequently or of short duration when for other reasons) because: Certification for Home Health Services: Based on the above findings, I certify that this patient is confined to the home and needs intermittent care home care, physical therapy and/or speech therapy or continues to need occupational therapy. The patient is under my care, and I have initiated the establishment of the plan of care. This patient will be followed by a physician who will periodically review the plan of care. Total Time Total Time Spent Total Time Spent (In Minutes): 45 Discharge Plan Discharge Items Patient Disposition: Home - Self-Care Reason For Visit: B/L LOWER EXTREMITY PAIN, SICKLE CELL DISEASE Discharge Diagnosis: Sickle cell crisis Non-emergency contact: Primary Care Provider Call non-emergency contact if: you have any medication questions, your symptoms worsen and your temperature is above 101 Follow-up/Referrals: Tiffany Bailey CRNP [Primary Care Provider] - Diet: Regular Addtl Attending Provider Instructions: Follow-up with your primary care physician within a week time and likely you will need labs CBC/CMP/magnesium/phosphorus. Establish and follow-up with your primary care physician within a week time. Establish and follow-up with your hematology doctor in 1 to 2 weeks time upon discharge for ongoing management of your sickle cell anemia. You will be discharged on pain medications for few days, take them as needed for severe pain. If ongoing pain/if you need more pain medication, you will need further evaluation by your PCP. Continue with folic acid supplement. Continue with your prior to arrival dose of Keppra, follow up with your doctor for intermodal customer service monitoring. Take your medications as prescribed. Please make sure that you are able to get your medications today by calling your pharmacy before you leave the hospital so that your treatment continuity is not broken. Pending Studies at Discharge: No Stand-Alone Forms: My [email or web address], Smoking Cessation Medications and DC Order Prescriptions: New oxycodone 5 mg Tablet 5 mg PO Q6H PRN (Reason: pain (scale score 7-10)) 5 Days Qty: 20 0RF Continued folic acid 1 mg Tablet 1 mg PO DAILY magnesium oxide 400 mg magnesium Capsule 400 mg PO DAILY riboflavin (vitamin B2) 400 mg Tablet 400 mg PO DAILY Changed levetiracetam 500 mg tablet 500 mg PO BID Qty: 60 0RF Rx Instructions: states md dropped him down to 250mg bid Discharge Orders: Discharge Order (Routine); Ordered 10/10/23 Ordered By: Lynsey Ochoa Admission Data Admit Date/Time: 10/04/23 07:05 Attending Provider: Lynsey Ochoa Admit Provider: Yoni Cannon Primary Care Provider: Tiffany Bailey Other Providers: Yoni Cannon; Ivelisse Reaves; Jocelyne Guerra
[2023-10-10] MEDS: SODIUM CHLORIDE 0.45 % 1,000 ML IV SCH (12:57)
[2023-10-10] MEDS: ENOXAPARIN INJ 40 MG/0.4 ML SYR SQ SCH (14:36)
== END 2023-10-10 14:49 | disposition home or self-care (01) | DRG 812 ==
LOC: ED 01:29 → SUATTDRO 07:05 → 2N 07:05

== ENCOUNTER 2024-03-07 07:57 | Observation (INO) ==
--- OUTSIDE RECORDS SUMMARY | 2024-03-07 08:09 | External Medical Summary | Summary of Care ---
Author Name Unknown Organization [facility] Address [address] [place] [address] Phone [phone] Care Team Providers Care Breaker Machine Tender Name Role Phone Farhan Duron MD Primary Care Provider [phone] Reason for Visit * Reason Comments Follow Up 3 month follow up+ Encounter Details Date Type Department Care Team (Late st Contact Info) Description 03/01/2024 1:00 PM EDT Office Visit Hematology/Oncology [facility] [place] [address] [facility] [place] [id number] Kristy Moon MD [address] [place] [address] Sickle cell disease without crisis (HCC)* Allergies No known active allergiesdocumented as of this encounter (statuses as of 03/01/2024) Medications Medication Sig Dispensed Refills Start Date End Date Status FOLIC ACID 1 MG OR TABSIndications:Sick le-cell disease 1 tab daily oral 60 0 11/16/2003 Active Magnesium 400 MG Oral Capsule Take 1 Capsule by mouth in the morning. 30 Capsule 5 08/14/2023 Active oxyCODONE HCl 5 MG Oral Tablet (Oxy IR)Indications:Sickl e cell disease, with acute chest syndrome (HCC) Take 1 Tablet by mouth every 6 hours as needed for Pain, Severe. 60 Tablet 0 10/20/2023 Active Riboflavin 400 MG Oral Capsule Take 1 Capsule by mouth in the morning. 30 Capsule 5 11/03/2023 Active Nortriptyline HCl 10 MG Oral Capsule (Pamelor) Take 2 capsules nightly 60 Capsule 2 02/04/2024 Active documented as of this encounter (statuses as of 03/01/2024) Active Problems Problem Noted Date Diagnosed Date Psychogenic nonepileptic seizure 11/22/2023 Post concussion syndrome 10/13/2023 Sickle cell anemia 11/21/2003 documented as of this encounter (statuses as of 03/01/2024) Resolved Problems Problem Noted Date Diagnosed Date Resolved Date Seizure disorder, simple par tial, without intractable epilepsy 10/19/2023 10/20/2023 documented as of this encounter (statuses as of 03/01/2024) Social History Tobacco Use Types Packs/Day Years Used Date Smoking Tobacco: Never Smokeless Tobacco: Never Tobacco Cessation:Counseling Given: Not Answered Comments:Vapes daily Alcohol Use Standard Drinks/Week Comments Never 0 (1 standard drink = 0.6 oz pur e alcohol) Hunger Vital Sign Answer Date Recorded Within the past 12 months, y ou worried that your food would run out before you got the money to buy more. Patient declined Within the past 12 months, t he food you bought just didn't last and you didn't have money to get more. Patient declined Sex and Gender Information Value Date Recorded Sex Assigned at Male 09/22/2023 11:53 AM EST Gender Identity Male 09/22/2023 11:53 AM EST Sexual Orientation Straight 09/29/2023 3: 36 PM EST Job Start Date Occupation Industry Not on file Not on file Not on file documented as of this encounter Last Filed Vital Signs Vital Sign Reading Time Taken Comments Blood Pressure 144/84 03/01/2024 12:51 PM EDT Pulse 97 03/01/2024 12:51 PM EDT Temperature 36.9 C (98.4 F) 03/01/2024 12:51 PM E DT Respiratory Rate - - Oxygen Saturation 92% 03/01/2024 12:57 PM EDT Inhaled Oxygen Concentration - - Weight 72.8 kg (160 lb 8 oz) 03/01/2024 12:51 PM EDT Height - - Body Mass Index 21.77 11/23/2023 4:06 PM EST documented in this encounter Progress Notes * Kristy Moon MD - 03/01/2024 1:08 PM EDT Images from the original note were not included. Outpatient Consult Note Data Source: Patient, Epic record. Data Source: Patient, Epic record. 03/01/2024 1:08 PM Le Alanis [id number] 28 year old Patient Encounter: HEMATOLOGY/ONCOLOGY [facility] Diagnosis: Sickle cell disease for further management Current Treatment: Previous Treatment: History : 28-year-old male with history of sickle cell hemoglobin SS disease was recently admitted to the hospital with crisis including bilateral lower extremity pain and hemoglobin was 8.5 with a bilirubin of 16 and retic count of 23. His last crisis was about 11 years ago. He was seen and followed at [facility] and at some point he was also treated with hydroxyurea but subsequently it was discontinued many years ago. Now clinically he is feeling better with improvement in the pain. Denies any dizziness, fever, night sweats, chest pain, shortness breath, coughing, hemoptysis, abdominal pain or distention, nausea, vomiting, fever. The patient was diagnosed as an infant. He has infrequent pain crises. His typical pain is in the right sided ribs, lower extremity and arm. He is status post a cholecystectomy in ~ 2009 for symptomatic gall stones. He has had no episodes of pneumococcal bacteremia, salmonella, avascular necrosis of the femoral head, sickle cell retinopathy, priapism, skin ulcers, or other sickle cell complications. History is also significant for concussive headaches and spells of seizure-like activity. His 72hr EEG came back normal - no EEG correlate to spells. He was seen by Dr. Puckett and began tapering off Keppra. Patient used marijuana and also vap Family history significant for parents have sickle cell trait. His family is from [place] ([facility]). He has 4 brothers and 2 sisters; 2 brothers also have HbSS (mild) Some of the blood test were done on 08/08/2013 [facility] and following were the results. Component 10 yr ago Comments Hgb Identification SFA2 Hemoglobin % See Comment Hemoglobin S 80.0% Reference Range: 30-43% Hemoglobin F 14.2% Reference Range: 0.0-1.4% Sickle Cell Screen Negative Positive Abnormal Interval History: He had a blood test for hemoglobin done on 11/04/2023 Hemoglobin A2 (Quant) 2.2 - 3.2 % 2.2 Hemoglobin S 0.0 % 64.0 High Comment: For more information on this test, go to: http://education.[employer]/faq/PLE93f3 (This link is being provided for informational/ educational purposes only.) Hemoglobin C DNR Hemoglobin E DNR Other Hemoglobin 1 DNR Other Hemoglobin 2 DNR Interpretation SEE BELOW Overall clinically he is stable without any new symptoms complain. No recent hospitalization for crisis. He is occasional episodes of pain but overall under control. LABS/IMAGING: Results for orders placed or performed in visit on 11/04/23 HEMOGLOBINOPATHY EVALUATION Result Value Ref Range RBC 2.82 (L) 4.20 - 5.80 Mill/uL HGB 10.1 (L) 13.2 - 17.1 g/dL HCT 29.2 (L) 38.5 - 50.0 % MCV 103.5 (H) 80.0 - 100.0 fL MCH 35.8 (H) 27.0 - 33.0 pg RDW 18.3 (H) 11.0 - 15.0 % Hemoglobin A 19.0 (L) >96.0 % Hemoglobin F 14.8 (H) <2.0 % Hemoglobin A2 (Quant) 2.2 2.2 - 3.2 % Hemoglobin S 64.0 (H) 0.0 % Hemoglobin C DNR Hemoglobin E DNR Other Hemoglobin 1 DNR Other Hemoglobin 2 DNR Interpretation SEE BELOW Last CBC was done on 11/04/2023 with stable hemoglobin REVIEW OF SYSTEMS: General: No Fever, chills, night sweats, or weight loss. HEENT: No change in visual acuity, blurred or double vision. No epistaxis, facial pain, nasal discharge or change in hearing. Denies dysphagia, no muscosal ulceration, or sores noted. Cardiovascular: No chest pain, MOYA, or palpitations Respiratory: No shortness of breath, cough, hemoptysis, or pleuritic chest pain Gastrointestinal: No abdominal pain, nausea, vomiting, diarrhea, rectal pain or bleeding Genitourinary: Denies Hematuria or dysuria Musculoskeletal: No bone pain Psychiatric: No vegetative signs of depression Endocrine: No symptoms of hypothyroidism or hyperglycemia Hematologic: No bleeding or lymph nodes noted As mentioned above, all of the systems were reviewed in full and are unremarkable. 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 30 Capsule 5 oxyCODONE HCl 5 MG Oral Tablet (Oxy IR) Take 1 Tablet by mouth every 6 hours as needed for Pain, Severe. 60 Tablet 0 Riboflavin 400 MG Oral Capsule Take 1 Capsule by mouth in the morning. 30 Capsule 5 Nortriptyline HCl 10 MG Oral Capsule (Pamelor) Take 2 capsules nightly 60 Capsule 2 No current facility-administered medications for this visit. Social History Tobacco Use Smoking status: Never Smokeless tobacco: Never Tobacco comments: Vapes daily Vaping Use Vaping Use: Every day Substance Use Topics Alcohol use: Never Drug use: Yes Types: Marijuana Review of patient's allergies indicates: No Known Allergies PHYSICAL EXAMINATION: General Appearance: Healthy appearing patient in no acute distress BP 144/84 (BP Site: Left Arm, BP Position: Sitting, BP Cuff Size: Regular) | Pulse 97 | Temp 36.9 C (98.4 F) (Tympanic) | Wt 72.8 kg (160 lb 8 oz) | SpO2 92% | BMI 21.77 kg/m | BSA 1.92 m Vitals reviewed. HEENT: No oral or pharyngeal masses, ulceration or thrush noted, no sinus tenderness. Neck is supple with no thyromegaly or JVD noted. Lymph Nodes: No lymphadenopathy noted in the occipital, pre and post auricular, cervical, supra andinfraclavicular, axillary, epitrochlear, inguinal, and popliteal region. Lungs/Thorax: Clear to auscultation, no accessory muscles of respiration being used. Heart: Regular rate and rhythm, normal S1, S2 Abdomen: Soft, nontender, bowel sounds present, no appreciable hepatosplenomegaly, no palpable masses Extremeties: Good pulses bilaterally, no peripheral edema. ASSESSMENT: 28-year-old male with history of sickle cell SS disease was recently admitted with the sickle cell crisis including pain involving the lower extremity and arm. He was treated with blood transfusion and pain medication and hydration with improvement in symptoms. The crisis episodes are rare. He was followed also at [facility] and was also treated with hydroxyurea. But because clinically was doing well without any episodes of crisis, hydroxyurea was discontinued. His family history is also positive. Records on the [facility] was reviewed. Overall clinically he is stable without any new symptoms complain. No recent hospitalization for the crisis. At this point the best option is to continue to monitor the patient clinically. He alreadyhas elevated hemoglobin F level. He does not have any chest crisis or any indication for hydroxyurea at this point. We will continue to monitor the patient clinically. Discussed with the patient about diagnosis and reviewed all the available blood test result with him. PLAN: Return to clinic in 6 months with CBC and CMP. He will have blood test done today including CBC, CMP, retic count and LDH. The patient voiced understanding of all of the above. All questions and concerns were addressed in an apparently satisfactory manner. Kristy Moon MD (This note was completed using the dictation program [employer]. As such, there may be misspellings, word substitutions, or other variations that should not change the essence of the clinical content of this encounter note. If there is need for further clarification, please direct questions to me.) documented in this encounter Nursing Notes * Renetta Francois MED ASSIST - 03/01/2024 12:57 PM EDT Repeated patients oxygen and it was 92%. was made aware. * Renetta Francois MED ASSIST - 03/01/2024 12:54 PM EDT Patient asked if short of breath and he stated no. * Renetta Francois MED ASSIST - 03/01/2024 12:52 PM EDT Patient identifed by name and birthdate Do you have any concerns about pain management for today's visit? No Living Will or Advance Directive for Health Care as noted on the problem list. [facility] is a way you can talk to your provider on line through e-mail. Would you like to sign up? I can activate it for you? ALREADY ACTIVE Filed Vitals: 03/01/24 1251 BP: 144/84 Pulse: 97 Temp: 36.9 C (98.4 F) TempSrc: Tympanic SpO2: 86% Weight: 72.8 kg (160 lb 8 oz) Patient was instructed to not get up on the exam table/exam chair until directed and assisted by their provider; patient is to remain seated in the chair/ wheelchair/ exam table/ exam chair for fall prevention and safety reasons. Patient is aware to have assistance to step down off exam table/exam chair with personnel. Patient voiced full comprehension of instructions. documented in this encounter Plan of Treatment Upcoming Encounters Date Type Department Care Team (Late st Contact Info) Description 08/23/2024 3:30 PM EDT Office Visit Neurology [facility] [place] [address] [place] [address] Eun Garrison PA-C [address] [place] [address] 09/07/2024 3:00 PM EDT Laboratory Laboratory [facility] [place] [address] [place] [phone] [facility] [place] [address] [place] [id number] 09/07/2024 4:00 PM EDT Office Visit Hematology/Oncology [facility] [place] [address] [place] [phone] Kristy Moon MD [address] [facility] [place] [address] Scheduled Orders Name Type Priority Associated Diagnoses Orde r Schedule CBC WITH WBC DIFFERENTIAL Lab Routine Sickle cell disease without crisis (HCC) Expected: 08/22/2024, Expires: 01/23/2025 COMPREHENSIVE METABOLIC PANEL Lab Routine Sickle cell disease without crisis (HCC) Expected: 08/22/2024, Expires: 01/23/2025 LD Lab Routine Sickle cell disease without crisis (HCC) Expected: 08/22/2024, Expires: 01/23/2025 RETICULOCYTE PANEL Lab Routine Sickle cell disease without crisis (HCC) Expected: 08/22/2024, Expires: 01/23/2025 Health Maintenance Due Date Last Done Comments Depression Screening 2006 HIV Screening 2009 Hepatitis C Screening 2012 GARDASIL-HPV IMMUNIZATION SERIES (2 - Male 3-dose series) 09/09/2013 08/12/2013 DTaP,Tdap,and Td Vaccines (1 - Tdap) 2013 Hepatitis B (1 of 3 - 19+ 3-dose series) 2013 Pneumococcal Vaccine: Pediatrics (0 to 5 Years) and At-Risk Patients (6 to 64 Years) (2 of 2 - PCV) 08/12/2014 08/12/2013 COVID-19 Vaccine (1 - 2022-2 4 season) 2023 Influenza Vaccine (FLU shot) (Season Ended) 2024 08/12/2013, 07/26/2012 MENINGOCOCCAL (MENACTRA/MENVEO) Aged Out No longer eligible b ased on patient's age to complete this topic documented as of this encounter Medical Devices Not on filedocumented as of this encounter Visit Diagnoses Diagnosis Sickle cell disease without crisis (HCC)- Primary Hb-SS disease without crisis documented in this encounter Care Teams Breaker Machine Tender Relationship Specialty Start Date End Date Farhan Duron MD [address] [place] [address] [address] PCP - General Family Medicine 11/19/23 documented as of this encounter"
--- OUTSIDE RECORDS SUMMARY | 2024-03-07 08:09 | External Medical Summary | Summary of Care ---
Author Name Unknown Organization [facility] Address [address] [place] [address] Phone [phone] Care Team Providers Care Waiter/Waitress Cafeteria Name Role Phone Amos Buckley MD Primary Care Provider [phone] Reason for Visit * Reason Onset Date Comments Medication Refill 03/01/2024 Encounter Details Date Type Department Care Team (Late st Contact Info) Description 03/01/2024 Refill Family [facility] [address] [facility] [place] [id number] Amos Buckley MD [address] [facility] [place] [address] Sickle cell disease, with acute chest syndrome (HCC) Allergies No known active allergiesdocumented as of this encounter (statuses as of 03/02/2024) Medications Medication Sig Dispensed Refills Start Date End Date Status FOLIC ACID 1 MG OR TABSIndications:S ickle-cell disease 1 tab daily oral 60 0 11/16/2003 Active Magnesium 400 MG Oral Capsule Take 1 Capsule by mouth in the morning. 30 Capsule 5 08/14/2023 Active Riboflavin 400 MG Oral Capsule Take 1 Capsule by mouth in the morning. 30 Capsule 5 11/03/2023 Active Nortriptyline HCl 10 MG Oral Capsule (Pamelor) Take 2 capsules nightly 60 Capsule 2 02/04/2024 Active oxyCODONE HCl 5 MG Oral Tablet (Oxy IR)Indications:Si ckle cell disease, with acute chest syndrome (HCC) Take 1 Tablet by mouth every 6 hours as needed for Pain, Severe. 60 Tablet 0 03/02/2024 Active oxyCODONE HCl 5 MG Oral Tablet (Oxy IR)Indications:Si ckle cell disease, with acute chest syndrome (HCC) Take 1 Tablet by mouth every 6 hours as needed for Pain, Severe. 60 Tablet 0 10/20/2023 03/01/2024 Discontinued (Refill) documented as of this encounter (statuses as of 03/02/2024) Active Problems Problem Noted Date Diagnosed Date Psychogenic nonepileptic seizure 11/22/2023 Post concussion syndrome 10/13/2023 Sickle cell anemia 11/21/2003 documented as of this encounter (statuses as of 03/02/2024) Resolved Problems Problem Noted Date Diagnosed Date Resolved Date Seizure disorder, simple par tial, without intractable epilepsy 10/19/2023 10/20/2023 documented as of this encounter (statuses as of 03/02/2024) Social History Tobacco Use Types Packs/Day Years Used Date Smoking Tobacco: Never Smokeless Tobacco: Never Comments:Vapes daily Alcohol Use Standard Drinks/Week Comments [...] encounter Miscellaneous Notes * Telephone Encounter - Amos Buckley MD - 03/02/2024 3:08 PM EDTSigned Prescriptions: Disp Refills oxyCODONE HCl 5 MG Oral Tablet (Oxy IR) 60 Tab*0 Sig: Take 1 Tablet by mouth every 6 hours as needed for Pain, Severe. Authorizing Provider: AMOS BUCKLEY * Telephone Encounter - Delmy Hager [facility] - 03/02/2024 2:16 PM EDTPending Prescriptions: Disp Refills oxyCODONE HCl 5 MG Oral Tablet (Oxy IR) 60 Tab*0 Sig: Take 1 Tablet by mouth every 6 hours as needed for Pain, Severe. * Telephone Encounter - Delmy Hager [facility] - 03/02/2024 2:14 PM EDT I have reviewed the patients controlled substance dispensing history in the Prescription Drug Monitoring Program in compliance with the [facility] regulations before prescribing a controlled substance. PDMP checked on 03/02/2024. Pending Prescriptions: Disp Refills oxyCODONE HCl 5 MG Oral Tablet (Oxy IR) 60 Tab*0 Sig: Take 1 Tablet by mouth every 6 hours as needed for Pain, Severe. Last Visit: 01/20/2024 (in office), 10/13/2023 (telemedicine) Next Visit: Visit date not found Date medication was last filled: 10/20/23 Date medication is due for refill: 10/24/23 Pharmacy: [facility] [address] [place] [address] Is this request for a controlled substance? Yes and Urine Drug Screen Not completed Toxicology results: No results found for this or any previous visit. Please approve if appropriate. Thanks, Delmy Hager Clinical Pharmacist [facility] ([facility]) (Formerly Telepharmacy) [phone] 03/02/2024, 2:14 PM documented in this encounter Plan of Treatment Upcoming Encounters Date Type Department Care Team (Late st Contact Info) Description 08/23/2024 3:30 PM EDT Office Visit Neurology [facility] [address] [place] [address] Eun Garrison PA-C [address] [place] [address] 09/07/2024 3:00 PM EDT Laboratory Laboratory [facility] [address] [place] [phone] [facility] [address] [facility] [place] [address] 09/07/2024 4:00 PM EDT Office Visit Hematology/Oncology [facility] [address] [place] [phone] Kristy Moon MD [address] [place] [address] Health Maintenance Due Date Last Done Comments [...] 2 - PCV) 08/12/2014 08/12/2013 COVID-19 Vaccine ( - 2022-2 4 season) 2023 Influenza Vaccine (FLU shot) (Season Ended) 2024 08/12/2013, 07/26/2012 MENINGOCOCCAL (MENACTRA/MENVEO) Aged Out No longer eligible b ased on patient's age to complete this topic documented as of this encounter Medical Devices Not on filedocumented as of this encounter Visit Diagnoses Diagnosis Sickle cell disease, with acute chest syndrome (HCC) documented in this encounter Care Teams Waiter/Waitress Cafeteria Relationship Specialty Start Date End Date Amos Buckley MD [address] [place] [address] [address] PCP - General Family Medicine 11/19/23 documented as of this encounter
--- OUTSIDE RECORDS SUMMARY | 2024-03-07 08:10 | External Medical Summary | Summary of Care ---
Author Name Unknown Organization [facility] Address [address] [place] [address] Phone [phone] Care Team Providers Care Music Industry Internship Name Role Phone Farhan Duron MD Primary Care Provider [phone] [phone] Reason for Referral * Evaluate & Treat - Unlimited Visits (Within 10 days (routine)) - Pending Review Specialty Diagnoses / Procedures Referred By Saran patel Referred To Contact Physical Therapy / Physical Medicine And Rehab Diagnoses Post-concussion syndrome Eun Garrison PA-C [address] [place] [address] [address] Referral ID Status Reason Start Date Expiration Date Visits Requested Visits Authorized [id number] Pending Review Specialty Services Required 02/18/[phone] Question Answer Referral Priority Within 10 days (routine) Where should this appointment be scheduled? Tulio Comments Patient established with [facility]. Please eval for work return readiness. Post concussion syndrome and memory/cognition difficulty. Reason for Visit * Reason Comments Return Neuro Encounter Details Date Type Department Care Team (Late st Contact Info) Description 02/18/2024 3:30 PM EDT Office Visit Neurology [facility] [place] [address] [facility] [place] [address] Eun Garrison PA-C [address] [place] [address] [id number] Psychogenic nonepileptic seizure*; Post-concussion syndrome Allergies No known active allergiesdocumented as of this encounter (statuses as of 02/18/2024) Medications Medication Sig Dispensed Refills Start Date [...] capsules nightly 60 Capsule 2 02/04/2024 Active levETIRAcetam 500 MG Oral Tablet (Keppra) Take 1 Tablet by mouth in the morning and 1 Tablet before bedtime. 60 Tablet 0 11/23/2023 02/18/2024 Discontinued (End of Procedure) documented as of this encounter (statuses as of 02/18/2024) Active Problems Problem Noted Date Diagnosed Date Psychogenic nonepileptic seizure 11/22/2023 Post concussion syndrome 10/13/2023 Sickle cell anemia 11/21/2003 documented as of this encounter (statuses as of 02/18/2024) Resolved Problems Problem Noted Date Diagnosed Date Resolved Date Seizure disorder, simple par tial, without intractable epilepsy 10/19/2023 10/20/2023 documented as of this encounter (statuses as of 02/18/2024) Social History Tobacco Use Types Packs/Day Years [...] Sign Reading Time Taken Comments Blood Pressure 122/80 02/18/2024 3:01 PM EDT Pulse 100 02/18/2024 3:01 PM EDT Temperature 37.2 C (99 F) 02/18/2024 3:01 PM EDT Respiratory Rate 16 02/18/2024 3:01 PM EDT Oxygen Saturation - - Inhaled Oxygen Concentration - - Weight 71.6 kg (157 lb 14.4 oz) 02/18/2024 3:01 PM EDT Height - - Body Mass Index 21.42 11/23/2023 4:06 PM EST documented in this encounter Progress Notes * Eun Garrison PA-C - 02/18/2024 3:30 PM EDT HISTORY & PHYSICAL EXAMINATION - NEUROLOGY Name: Le Alanis Date: 02/18/2024 Time: 7:45 AM Chief Complaint Patient presents with Return Neuro SUBJECTIVE: Le Alanis is a 28 year old male who returns today for follow- up. He was last seen on 10/29/23 for post concussion syndrome and PNES. - Gave taper off Keppra. - Referred to Psychology for CBT to address PNES. - Started low dose nortriptyline for migraine prophylaxis. - Referred to [facility] to evaluate for work readiness. In the interim, fell in November and hit his head again. CT head negative. Today states he feels okay. He is having headache 2-3x/ week which only last from 20 minutes to 1 hour. Takes Tylenol sometimes. Thinks the nortriptyline is helping. No side effects. Continues to have PNES episodes when stressed. Completely off Keppra. Unable to travel to [place],requesting to go locally to [place]. No longer doing PT. Did not have work readiness evaluation. HPI On 06/26/23 he looked up and hit his head on a piece of metal equipment. No LOC but felt woozy and forgetful. Symptoms afterwards including persistent headache, dizziness, difficulty concentrating. Developed seizure- like activity and was started on Keppra prophylaxis. While wearing ambulatory EEG had a typical spell described as a "grand mal" seizure which lasted 10 minutes. No EEG correlate. Tapered off Keppra. Allergies: Patient has no known allergies. Problem list: Patient Active Problem List Diagnosis Code Sickle cell anemia ([facility]) D57.1 Post concussion syndrome F07.81 Psychogenic nonepileptic seizure F44.5 Past Medical History: Past Medical History: Diagnosis Date Psychogenic nonepileptic seizure 11/22/2023 Seizure disorder, simple partial, without intractable epilepsy ([facility]) 10/19/2023 Current Outpatient Medications: Current Outpatient Medications Medication [...] SYSTEMS: As above OBJECTIVE: Physical Examination: BP 122/80 | Pulse 100 | Temp 37.2 C (99 F) (Tympanic) | Resp 16 | Wt 71.6 kg (157 lb 14.4 oz) |BMI 21.42 kg/m | BSA 1.91 m General appearance: healthy, alert, no distress Physical Exam: Constitutional: Appearance normally developed,well nourished,no deformities,well groomed Head and face: normocephalic,atraumatic Psychiatric: normal judgement and insight,normal mood,normal affect NEUROLOGIC EXAMINATION: Mental Status Exam: alert,oriented to time, place, person,normal recent memory,normal remote memory,normal attention span,normal concentration,normal language,normal fund of knowledge Cranial Nerves: CN 7 - no facial assymetry CN 8 - hearing grossly intact Gait/station: Gait appears to be normal, no pathological gaits. LABORATORY: Results for orders placed or performed in visit on 11/04/23 CBC Result Value Ref Range WBC 7.94 4.00 - 10.80 K/uL RBC 2.82 4.50 - 5.25 M/uL HGB 10.1 (L) 14.0 - 16.8 g/dL HCT 29.4 (L) 40.0 - 48.4 % MCV 104.3 82.0 - 99.5 fL MCH 35.8 27.0 - 34.0 pg MCHC 34.4 32.0 - 36.0 g/dL RDW 19.7 11.5 - 15.5 % PLT 320 140 - 400 K/uL MPV 10.8 6.6 - 11.1 fL nRBCs 1 (H) <=0 /100 WBCs No results found for: "HEMOGLOBIN A1C" Lab Results Component Value Date/Time TSH - APPLEER 3.32 08/05/2023 10:12 AM Review of prior Studies: ASSESSMENT/PLAN: Le Alanis is a 28 year old male with PNES and post concussion headaches. Headaches have improved. Experiencing headache 2-3x/ week and they last about 1 hour. Relieved withTylenol. - Nortriptyline is effective for headaches; elects to continue. Will consider tapering off at next follow- up. Tylenol PRN. - Referral to PT for work readiness assessment - Psychology for CBT for PNES; they will explore local options Follow up in 6 months or sooner if needed. I spent a total of 20 minutes on the date of service in preparation, delivery, and documentation of the care provided to Le Alanis. Roxanne Puckett MD available for direct consultation. Eun Garrison PA-C, Neurology [address] [place] [address] 02/18/24 3:38 PM documented in this encounter Nursing Notes * Carline Escalera, MED ASSIST - 02/18/2024 3:01 PM EDT Chief Complaint Patient presents with Return Neuro documented in this encounter Plan of Treatment Upcoming Encounters Date Type Department Care Team (Late st Contact Info) Description 03/01/2024 1:00 PM EDT Office Visit Hematology/Oncology [facility] [address] [facility] [place] [address] Kristy Moon MD [address] [facility] [place] [address] 08/23/2024 3:30 PM EDT Office Visit Neurology [facility] [address] [facility] [place] [address] Eun Garrison PA-C [address] [place] [address] Scheduled Referrals Name Type Priority Associated Diagnoses Orde r Schedule PHYSICAL THERAPY REFERRAL OP Referral Within 10 days (routine) Post-concussion syndrome Ordered: 02/18/2024 Health Maintenance Due Date Last Done Comments [...] as of this encounter Visit Diagnoses Diagnosis Psychogenic nonepileptic seizure- Primary Post-concussion syndrome Postconcussion syndrome documented in this encounter Care Teams Music Industry Internship Relationship Specialty Start Date End Date Farhan Duron MD [address] [place] [address] [address] PCP - General Family Medicine 11/19/23 documented as of this encounter
--- OUTSIDE RECORDS SUMMARY | 2024-03-07 08:10 | External Medical Summary ---
Author Name Unknown Address Unknown Organization [id number]:[place] [facility] [place] [address] [facility] [address] Laboratory Report Ordering Provider Test Date Status ED MORELAND 03/01/2024 13:10:18 Final Observation Date Value Abnormality Reference (Units ) Status Retic, % (auto) 03/01/2024 13:10:18 19.12 Above high normal 0.80-1.90 (%) Final Reticulocytes, Absolute 03/01/2024 13:10:18 Final No result - reticulocyte marc ue above or below level of detection. Reticulocyte fraction, immature 03/01/2024 13:10:18 Final No result - reticulocyte marc ue above or below level of detection. Reticulocyte HGB 03/01/2024 13:10:18 Final No result - reticulocyte marc ue above or below level of detection. Performing Location [facility] [place] [address] [facility] [address]
--- OUTSIDE RECORDS SUMMARY | 2024-03-07 08:10 | External Medical Summary | Summary of Care ---
Author Name Unknown Organization [facility] Address [address] [place] [address] Phone [phone] Care Team Providers Care Cutter Aluminum Sheet Name Role Phone Farhan Duron MD Primary Care Provider [phone] [phone] Reason for Visit * Reason Onset Date Comments Medication Refill 02/03/2024 Encounter Details Date Type Department Care Team (Late st Contact Info) Description 02/03/2024 Refill Neurology [facility] [address] [facility] [place] [address] Eun Garrison PA-C [address] [place] [address] Allergies No known active allergiesdocumented as of this encounter (statuses as of 02/04/2024) Medications Medication Sig Dispensed Refills Start Date End Date Status FOLIC ACID 1 MG OR TABSIndications: Sickle-cell disease 1 tab daily oral 60 0 11/16/2003 Active Magnesium 400 MG Oral Capsule Take 1 Capsule by mouth in the morning. 30 Capsule 5 08/14/2023 Active oxyCODONE HCl 5 MG Oral Tablet (Oxy IR)Indications:S ickle cell disease, with acute chest syndrome (HCC) Take 1 Tablet by mouth every 6 hours as needed for Pain, Severe. 60 Tablet 0 10/20/2023 Active Riboflavin 400 MG Oral Capsule Take 1 Capsule by mouth in the morning. 30 Capsule 5 11/03/2023 Active levETIRAcetam 500 MG Oral Tablet (Keppra) Take 1 Tablet by mouth in the morning and 1 Tablet before bedtime. 60 Tablet 0 11/23/2023 Active Additional Information Patient not taking.Reported on 01/20/2024 Nortriptyline HCl 10 MG Oral Capsule (Pamelor) Take 2 capsules nightly 60 Capsule 2 02/04/2024 Active Nortriptyline HCl 10 MG Oral Capsule (Pamelor) Take 1 capsule at night x 2 weeks then increase to 2 capsules. 60 Capsule 2 10/29/2023 Discontinue d(Refill) documented as of this encounter (statuses as of 02/04/2024) Active Problems Problem Noted Date Diagnosed Date Psychogenic nonepileptic seizure 11/22/2023 Post concussion syndrome 10/13/2023 Sickle cell anemia 11/21/2003 documented as of this encounter (statuses as of 02/04/2024) Resolved Problems Problem Noted Date Diagnosed Date Resolved Date Seizure disorder, simple par tial, without intractable epilepsy 10/19/2023 10/20/2023 documented as of this encounter (statuses as of 02/04/2024) Social History Tobacco Use Types Packs/Day Years [...] encounter Miscellaneous Notes * Telephone Encounter - Eun Garrison PA-C - 02/04/2024 8:49 AM EDTSigned Prescriptions: Disp Refills Nortriptyline HCl 10 MG Oral Capsule (Naomy*60 Cap*2 Sig: Take 2 capsules nightly Authorizing Provider: EUN GARRISON * Telephone Encounter - Liat Gonzalez LPN - 02/04/2024 8:41 AM EDTPending Prescriptions: Disp Refills Nortriptyline HCl 10 MG Oral Capsule (Naomy*60 Cap*2 Sig: Take 1capsule at night x 2 weeks then increase to 2 capsules. documented in this encounter Plan of Treatment Upcoming Encounters Date Type Department Care Team (Late st Contact Info) Description 02/18/2024 3:30 PM EDT Office Visit Neurology [address] [place] [address] Eun Garrison PA-C 21 [facility] [place] [address] 03/01/2024 1:00 PM EDT Office Visit Hematology/Oncology [facility] [address] [place] [address] Kristy Moon MD 200 [facility] [place] [address] Health Maintenance Due Date Last Done Comments [...] 4 season) 2023 Influenza Vaccine (FLU shot) (#1) 2023 08/12/2013, 07/26/2012 MENINGOCOCCAL (MENACTRA/MENVEO) Aged Out No longer eligible b ased on patient's age to complete this topic documented as of this encounter Medical Devices Not on filedocumented as of this encounter Care Teams Cutter Aluminum Sheet Relationship Specialty Start Date End Date Farhan Duron MD [address] [place] [address] [address] PCP - General Family Medicine 11/19/23 documented as of this encounter
--- OUTSIDE RECORDS SUMMARY | 2024-03-07 08:10 | External Medical Summary | Summary of Care ---
Author Name Unknown Organization [facility] Address [address] [place] [address] Phone [phone] Care Team Providers Care Estate Planning Paralegal Name Role Phone Farhan Duron MD Primary Care Provider [phone] [phone] Reason for Visit * Reason Comments Outpatient Testing Encounter Details Date Type Department Care Team (Late st Contact Info) Description 03/01/2024 1:40 PM EDT Laboratory [facility] [address] [place] [address] [place], [facility] [address] [place] [address] Sickle cell disease with crisis (HCC) Allergies No known active allergiesdocumented as [...] 08/23/2024 3:30 PM EDT Office Visit Neurology [facility] [place] [address] [place] [address] Eun Garrison PA-C [address] [place] [address] 09/07/2024 3:00 PM EDT Laboratory [facility] [employer] [address] [place] [phone] [facility] [address] [place] [address] 09/07/2024 4:00 PM EDT Office Visit Hematology/Oncology [facility] [address] [facility] [place] [address] Kristy Moon MD 200 [facility] [place] [address] Pending Results Name Type Priority Associated Diagnoses Date /Time CBC WITH WBC DIFFERENTIAL Lab Routine Sickle cell disease with crisis (HCC) 03/01/2024 1:10 PM EDT COMPREHENSIVE METABOLIC PANEL Lab Routine Sickle cell disease with crisis (HCC) 03/01/2024 1:10 PM EDT RETICULOCYTE PANEL Lab Routine Sickle cell disease with crisis (HCC) 03/01/2024 1:10 PM EDT CBC Lab Routine Sickle cell disease with crisis (HCC) 03/01/2024 1:10 PM EDT DIFFERENTIAL, AUTOMATED Lab Routine Sickle cell disease with crisis (HCC) 03/01/2024 1:10 PM EDT Health Maintenance Due Date Last Done [...] encounter Visit Diagnoses Diagnosis Sickle cell disease with crisis (HCC) Hb-SS disease with crisis documented in this encounter Care Teams Estate Planning Paralegal Relationship Specialty Start Date End Date Farhan Duron MD [address] [place] [address] PCP - General Family Medicine 11/19/23 documented as of this encounter
--- OUTSIDE RECORDS SUMMARY | 2024-03-07 08:10 | External Medical Summary ---
Author Name Unknown Address Unknown Organization K01:[facility]ATORY [facility] [place] - [address] [place], [place] [address]. [facility] [address] Laboratory Report Ordering Provider Test Date Status ED MORELAND 03/01/2024 13:10:18 Final Observation Date Value Abnormality Reference (Units ) Status WBC, Total 03/01/2024 13:10:18 8.32 4.00-10.80 (K/uL) Final RBC 03/01/2024 13:10:18 2.40 4.50-5.25 (M/uL) Final Hemoglobin 03/01/2024 13:10:18 8.9 Below low normal 14.0-16.8 (g/dL) Final HCT 03/01/2024 13:10:18 25.0 Below low normal 40.0-48.4 (%) Final MCV 03/01/2024 13:10:18 104.2 82.0-99.5 (fL) Final MCH 03/01/2024 13:10:18 37.1 27.0-34.0 (pg) Final MCHC 03/01/2024 13:10:18 35.6 32.0-36.0 (g/dL) Final RDW 03/01/2024 13:10:18 21.7 11.5-15.5 (%) Final Platelets 03/01/2024 13:10:18 344 140-400 (K/uL) Final MPV 03/01/2024 13:10:18 10.9 6.6-11.1 (fL) Final Nucleated erythrocytes/100 leukocytes [Ratio] in Blood by Automated count 03/01/2024 13:10:18 3 Above high normal <=0 (/100 WBCs) Final Performing Location [facility] [place] - [address] [facility] [address] [facility] [address]
--- OUTSIDE RECORDS SUMMARY | 2024-03-07 08:10 | External Medical Summary ---
Author Name Unknown Address Unknown Organization K09:[facility]ATORY [facility] - [address] [place] [address] Laboratory Report Ordering Provider Test Date Status ED MORELAND 03/01/2024 13:10:18 Final Observation Date Value Abnormality Reference (Units ) Status BUN 03/01/2024 13:10:18 7 6-20 (mg/d L) Final Creatinine 03/01/2024 13:10:18 0.7 0.6-1.2 ( mg/dL) Final Result may be falsely decrea sed due to icterus. Glomerular filtration rate/1 .73 sq M.predicted [Volume Rate/Area] in Serum, Plasma or Blood by Creatinine-based formula (CKD-EPI) 03/01/2024 13:10:18 >90 >=60 (mL/min) Final eGFR is calculated based on the CKD-EPI 2020 equation Sodium 03/01/2024 13:10:18 139 135-146 (m mol/L) Final Potassium 03/01/2024 13:10:18 5.0 3.5-5.1 (m mol/L) Final Cl 03/01/2024 13:10:18 106 98-107 (mm ol/L) Final CO2 03/01/2024 13:10:18 23 22-32 (mmo l/L) Final Anion gap 03/01/2024 13:10:18 10 7-15 (mmol /L) Final Glucose 03/01/2024 13:10:18 87 70-120 (mg /dL) Final Albumin 03/01/2024 13:10:18 4.6 3.8-5.0 (g /dL) Final AST (Aspartate aminotransferase) 03/01/2024 13:10:18 60 Above high normal 10-50 (U/L) Final Result may be falsely elevat ed due to hemolysis. Alk Phos 03/01/2024 13:10:18 81 35-130 (U/ L) Final Bilirubin, Total 03/01/2024 13:10:18 16.2 Above high no rmal <=1.2 (mg/dL) Final Calcium 03/01/2024 13:10:18 9.4 8.4-10.2 ( mg/dL) Final Protein 03/01/2024 13:10:18 7.3 6.0-8.3 (g /dL) Final ALT (Alanine aminotransferase) 03/01/2024 13:10:18 44 10-50 (U/L) Fran hung Performing Location LAB[facility]ATORY [place] [address] [place] [address]
--- OUTSIDE RECORDS SUMMARY | 2024-03-07 08:10 | External Medical Summary ---
Author Name Unknown Address Unknown Organization K01:[place] [place] [address] [facility] [address] Laboratory Report Ordering Provider Test Date Status ED MORELAND 03/01/2024 13:10:18 Final Observation Date Value Abnormality Reference (Units ) Status SYNC LEUKOCYTES IN BLOOD BY AUTOMATED COUNT 03/01/2024 13:10:18 8.32 4.00-10.80 (K/uL) Final Neutrophils/100 leukocytes in Blood by Manual count 03/01/2024 13:10:18 42.0 40.0-75.0 (%) Final Lymphocytes/100 leukocytes in Blood by Manual count 03/01/2024 13:10:18 47.0 Above high normal 18.0-42.0 (%) Final Monocytes/100 leukocytes in Blood by Manual count 03/01/2024 13:10:18 7.0 1.0-11.0 (%) Final Eosinophils/100 leukocytes in Blood by Manual count 03/01/2024 13:10:18 2.0 0.0-6.0 (%) Final Basophils/100 leukocytes in Blood by Manual count 03/01/2024 13:10:18 2.0 0.0-2.0 (%) Final Neutrophils [#/volume] in Blood by Manual count 03/01/2024 13:10:18 3.49 1.80-7.70 (K/uL) Final Lymphocytes [#/volume] in Blood by Manual count 03/01/2024 13:10:18 3.91 1.00-4.80 (K/uL) Final Monocytes [#/volume] in Blood by Manual count 03/01/2024 13:10:18 0.58 0.00-1.10 (K/uL) Final Eosinophils [#/volume] in Blood by Manual count 03/01/2024 13:10:18 0.17 0.00-0.70 (K/uL) Final Basophils [#/volume] in Blood by Manual count 03/01/2024 13:10:18 0.17 0.00-0.20 (K/uL) Final Polychromasia [Presence] in Blood by Light microscopy 03/01/2024 13:10:18 Moderate Abnormal None Seen Final Sickle cells [Presence] in Blood by Light microscopy 03/01/2024 13:10:18 Many Abnormal None Seen Final Giant platelets [Presence] in Blood by Light microscopy 03/01/2024 13:10:18 Present Abnormal None Seen Final Performing Location [place] [facility] [place] [address] [facility] [address]
--- OUTSIDE RECORDS SUMMARY | 2024-03-07 08:10 | External Medical Summary | Summary of Care ---
Author Name Unknown Organization [facility] Address [address] [place] [address] Phone [phone] Care Team Providers Care Collar Cutter Name Role Phone Farhan Duron MD Primary Care Provider [phone] Reason for Visit * Reason Onset Date Comments Medical Records Request 02/02/2024 Encounter Details Date Type Department Care Team (Late st Contact Info) Description 02/02/2024 Telephone Family Practice [facility] [address] [employer] [address] Farhan Duron MD [address] [place] [address] Medical Records Request Allergies No known active allergiesdocumented as of this encounter (statuses as of 02/03/2024) Medications Medication Sig Dispensed Refills Start Date End Date Status FOLIC ACID 1 MG OR TABSIndications:Si ckle-cell disease 1 tab daily oral 60 0 11/16/2003 Active Magnesium 400 MG Oral Capsule Take 1 Capsule by mouth in the morning. 30 Capsule 5 08/14/2023 Active oxyCODONE HCl 5 MG Oral Tablet (Oxy IR)Indications:Sic kle cell disease, with acute chest syndrome (HCC) Take 1 Tablet by mouth every 6 hours as needed for Pain, Severe. 60 Tablet 0 10/20/2023 Active Nortriptyline HCl 10 MG Oral Capsule (Pamelor) Take 1 capsule at night x 2 weeks then increase to 2 capsules. 60 Capsule 2 10/29/2023 Active Riboflavin 400 MG Oral Capsule Take 1 Capsule by mouth in the morning. 30 Capsule 5 11/03/2023 Active levETIRAcetam 500 MG Oral Tablet (Keppra) Take 1 Tablet by mouth in the morning and 1 Tablet before bedtime. 60 Tablet 0 11/23/2023 Active Additional Information Patient not taking.Reported on 01/20/2024 documented as of this encounter (statuses as of 02/03/2024) Active Problems Problem Noted Date Diagnosed Date Psychogenic nonepileptic seizure 11/22/2023 Post concussion syndrome 10/13/2023 Sickle cell anemia 11/21/2003 documented as of this encounter (statuses as of 02/03/2024) Resolved Problems Problem Noted Date Diagnosed Date Resolved Date Seizure disorder, simple par tial, without intractable epilepsy 10/19/2023 10/20/2023 documented as of this encounter (statuses as of 02/03/2024) Social History Tobacco Use Types Packs/Day Years [...] Telephone Encounter - Napoleon Sanders OSA - 02/02/2024 11:53 AM EDT Medical Records Request from [facility] [employer] [facility] Medical Records Request forwarded to [facility] documented in this encounter Plan of Treatment Upcoming Encounters Date Type Department Care Team (Late st Contact Info) Description 02/18/2024 3:30 PM EDT Office Visit Neurology [facility] [address] [facility] [place] [address] Eun Garrison PA-C [address] [place] [address] 03/01/2024 1:00 PM EDT Office Visit Hematology/Oncology [facility] [address] [facility] [place] [address] Kristy Moon MD 200 [facility] [place] [address] Health Maintenance Due Date Last Done Comments [...] filedocumented as of this encounter Care Teams Collar Cutter Relationship Specialty Start Date End Date Farhan Duron MD [address] [place] [address] PCP - General Family Medicine 11/19/23 documented as of this encounter
[2024-03-07] MEDS: SODIUM CHLORIDE 0.9% 1,000 ML IV STA (08:45)
[2024-03-07] MEDS: MoRPHine SULFATE 4 MG/ML 1 ML CARP\\VIAL IV STA (08:45)
[2024-03-07] MEDS: KETOROLAC TROMETHAMINE 15 MG/ML VIAL IV STA (08:45)
[2024-03-07 09:01] LABS: Basophils # (auto) 0.07 K/uL (0.00-0.20); Basophils % (auto) 0.7 %; Eosinophils # (auto) 0.28 K/uL (0.00-0.50); Eosinophils % (auto) 2.7 %; Hematocrit (blood only) 21.7 % (42.0-52.0); Hemoglobin 8.2 g/dl (14.0-18.0); Immature Granulocytes # (auto) 0.19 K/uL (0.01-0.20); Immature Granulocytes % (auto) 1.9 %; Lymphocytes # (auto) 4.23 K/uL (1.20-3.40); Lymphocytes % (auto) 41.3 %; Mean Corpuscular Hemoglobin 36.9 pg (25.0-34.0); Mean Corpuscular Hgb Conc 37.8 g/dL (32.0-36.0); Mean Corpuscular Volume 97.7 fL (80.0-100.0); Mean Platelet Volume 9.6 fL (9.4-12.4); Monocytes # (auto) 0.81 K/uL (0.11-0.59); Monocytes % (auto) 7.9 %; Neutrophils # (auto) 4.67 K/uL (1.40-6.50); Neutrophils % (auto) 45.5 %; Nucleated RBC # (auto) 0.26 K/uL (0.00-0.12); Nucleated RBC % (auto) 2.5 %; Platelet Count 307 K/uL (130-400); RDW Coefficient of Variation 22.3 % (11.5-14.5); RDW Standard Deviation 75.7 fL (36.4-46.3); Red Blood Count 2.22 M/uL (4.70-6.10); White Blood Count 10.25 K/ul (4.8-10.8)
[2024-03-07 09:17] LABS: Reticulocyte % 19.26 % (0.50-2.00)
[2024-03-07 09:20] LABS: Alanine Aminotransferase 21 U/L (7-52); Albumin Globulin Ratio 1.6 (0.9-2); Albumin Level 4.1 gm/dl (3.4-5.0); Alkaline Phosphatase 73 U/L (34-104); Anion Gap 5 (3-11); Aspartate Aminotransferase 37 U/L (13-39); BUN Creatinine Ratio 9.1 (10-20); Bilirubin,Total 12.2 mg/dl (0.2-1.0); Blood Urea Nitrogen 6 mg/dl (6-23); C Reactive Protein < 0.50 mg/dl (0-0.5); Calcium 8.3 mg/dl (8.6-10.3); Carbon Dioxide 24 mmol/L (21-32); Chloride 109 mmol/L (98-107); Creatine Kinase 36 U/L (30-223); Est GFR (African American) > 150.0 ml/min; Est GFR (Non-African American) 130.7 ml/min; Globulin 2.6 gm/dl (2.5-4.0); Glucose 106 mg/dl (70-99(Fasting)); Magnesium 2.1 mg/dl (1.7-2.4); Phosphorus 3.3 mg/dl (2.5-4.9); Potassium 4.3 mmol/L (3.5-5.1); Sodium 138 mmol/L (136-145); Total Protein 6.7 gm/dl (6.0-8.3)
--- NOTE | 2024-03-07 09:24 | XRay Report ---
XR chest 1V portable HISTORY: 28 years-old Male Sickle cell crisis acute shortness of breath COMPARISON: 01/31/2024 TECHNIQUE: AP view of the chest FINDINGS: Cardiac silhouette is enlarged. No pneumothorax, pleural effusion or airspace consolidation. The bone s appear grossly intact. IMPRESSION: No acute process. ACT 112: Negative or not required by law. The above report was generated using voice recognition software. It may contain grammatical, syntax o r spelling errors. Electronically signed by: Ruperto Fair M.D. 03/07/2024 9:22 AM
--- NOTE | 2024-03-07 09:27 | Emergency Department Note ---
ED Provider Note History of Present Illness Chief Complaint: Illness Stated Complaint: POSSIBLE DEHYDRATION BILATERAL LEG PAIN Time Seen by Provider: 03/07/24 08:15 28-year-old male, history of sickle cell disease, who presents the emergency department with complaint of bilateral lower extremity cramping that started around 6:50 AM this morning. The patient is concerned that he is having a sickle cell crisis. The patient reports living in a hot apartment, and does not feel that he has been drinking enough water. The patient reports that he follows with [facility]. He did require admission this past October with similar symptoms. He denies any other recent upper respiratory infections. Patient also denies any recent trauma to the legs. He currently rates his discomfort a 10 out of 10. Home Medications Medication Instructions Recorded Confirmed Type folic acid 1 mg tablet 1 mg PO DAILY 10/04/23 03/07/24 History magnesium oxide 400 mg PO DAILY 10/04/23 03/07/24 History riboflavin (vitamin B2) 400 mg 400 mg PO DAILY 10/04/23 03/07/24 History tablet nortriptyline 10 mg capsule 200 mg PO HS 03/07/24 03/07/24 History Allergies Allergy/AdvReac Type Severity Reaction Status Date / Time No Known Allergies Allergy Verified 03/07/24 09:58 Past Med/Surg History Medical History Psychogenic nonepileptic seizure No longer on Keppra Hyperbilirubinemia Sickle cell disease Surgical History Hx of cholecystectomy Family History Other Sickle cell anemia Social History Smoking Status: Current every day smoker Tobacco Type: E-cigarettes / Vaping Second Hand Exposure: No; Do You Dip or Chew Tobacco: No; Hx Alcohol Use: No Hx Substance Use: Yes Preferred Language: Estonian Communication Ability: Effective Cardiology Clinical Nurse Specialist Required: No Beliefs That Will Affect Care: None Current Living Situation: Significant Other Current Living Situation Comment: Lives w/ half-brother Other Information That Helps Us Care for You: No Feels Safe at Home: Yes Safety Concerns: Feels Safe At This Time Assistive Devices: None Physical Exam Vital Signs Vital Signs - 24 hr 03/07/24 07:59 03/07/24 08:36 03/07/24 09:00 Temperature 37.0 C Temperature Source Temporal Artery Scan Pulse Rate 83 77 70 Pulse Rate from SpO2 Sensor Pulse Rhythm Regular Pulse Strength Normal Respiratory Rate 20 20 Respiratory Effort / Characteristics Non-Labored Spontaneous Respiratory Depth Normal Respiratory Pattern Regular Blood Pressure 132/61 143/87 H Blood Pressure Mean 84 105 Blood Pressure Position Sitting Pulse Oximetry 98 95 Oxygen Delivery Method Room Air Room Air Sepsis Recent Fever Within 48 Hours No Sepsis New/Unexplained Change in Mental Status No Sepsis Action Taken by Nursing No Action Required 03/07/24 09:30 03/07/24 10:00 03/07/24 10:30 Temperature Temperature Source Pulse Rate 71 77 71 Pulse Rate from SpO2 Sensor Pulse Rhythm Pulse Strength Respiratory Rate 17 21 21 Respiratory Effort / Characteristics Respiratory Depth Respiratory Pattern Blood Pressure 134/72 134/96 144/93 H Blood Pressure Mean 92 108 110 Blood Pressure Position Pulse Oximetry 94 96 94 Oxygen Delivery Method Room Air Room Air Room Air Sepsis Recent Fever Within 48 Hours Sepsis New/Unexplained Change in Mental Status Sepsis Action Taken by Nursing 03/07/24 10:40 03/07/24 10:50 03/07/24 11:00 Temperature Temperature Source Pulse Rate 67 74 Pulse Rate from SpO2 Sensor 64 75 Pulse Rhythm Pulse Strength Respiratory Rate 22 20 Respiratory Effort / Characteristics Respiratory Depth Respiratory Pattern Blood Pressure 131/86 Blood Pressure Mean 96 Blood Pressure Position Pulse Oximetry 94 95 Oxygen Delivery Method Sepsis Recent Fever Within 48 Hours Sepsis New/Unexplained Change in Mental Status Sepsis Action Taken by Nursing 03/07/24 11:00 03/07/24 11:10 03/07/24 11:20 Temperature Temperature Source Pulse Rate 66 75 61 Pulse Rate from SpO2 Sensor 68 70 62 Pulse Rhythm Pulse Strength Respiratory Rate 23 17 18 Respiratory Effort / Characteristics Respiratory Depth Respiratory Pattern Blood Pressure Blood Pressure Mean Blood Pressure Position Pulse Oximetry 94 93 93 Oxygen Delivery Method Sepsis Recent Fever Within 48 Hours Sepsis New/Unexplained Change in Mental Status Sepsis Action Taken by Nursing 03/07/24 12:40 Temperature Temperature Source Pulse Rate 61 Pulse Rate from SpO2 Sensor Pulse Rhythm Pulse Strength Respiratory Rate Respiratory Effort / Characteristics Respiratory Depth Respiratory Pattern Blood Pressure Blood Pressure Mean Blood Pressure Position Pulse Oximetry Oxygen Delivery Method Sepsis Recent Fever Within 48 Hours Sepsis New/Unexplained Change in Mental Status Sepsis Action Taken by Nursing CONSTITUTIONAL: Healthy and well nourished. Patient appears in moderate discomfort. HEENT: Normocephalic, atraumatic. Pupils equal, round and reactive. No scleral icterus or conjunctival injection. Mucous membranes are dry. NECK: Full active range of motion without discomfort. LYMPHATICS: No cervical chain adenopathy. RESPIRATORY: Clear to auscultation bilaterally with no wheezing, crackles, rhonchi or stridor. CARDIOVASCULAR: Regular rate and rhythm with no murmurs, rubs or gallops. GASTROINTESTINAL: Bowel sounds present in all quadrants. Abdomen is soft and nontender to palpation. MUSCULOSKELETAL: Patient has generalized tenderness to palpation of bilateral lower extremities. No ecchymosis, mottling or open lesions noted. Pedal pulses are intact. INTEGUMENTARY: No rash or other significant dermatologic conditions noted. HEMATOLOGIC: No ecchymosis or petechiae. PSYCHIATRIC: Positive affect. NEUROLOGIC: Cranial nerves II-XII grossly intact. No focal neurologic deficits noted. Lower extremities are sensory intact. Course Course Patient history and physical exam were performed. Nurses notes reviewed. Vital signs were reviewed, showing a mildly elevated blood pressure. The patient is not hypoxic, febrile or tachycardic. IV access was established, and labs are drawn. The patient was hydrated with 1.5 L of normal saline, and administered IV morphine and Zofran for pain. An ECG was performed and was normal. The patient was placed on athletic monitor while in the emergency department. Portable chest x-ray was also normal. Review of labs shows a hemoglobin of 8.2. Review of prior records shows that the patient usually has hemoglobin of less than 10, with known history of anemia. Reticulocyte count is elevated as in the past. Coagulation studies are normal. CMP shows an elevated total bilirubin which is normal for the patient. LFTs, C-reactive protein and creatinine are normal. Urinalysis shows trace proteinuria, hematuria and urobilinogenuria. An upper respiratory PCR panel was also negative. Findings were discussed with Dr. Partida, ED attending physician, who recommended hospitalist consultation. I then reached out to the [facility] hospitalist service, who came to the emergency department for further evaluation, and agrees with hospitalization. Upon reevaluation, the patient reported improvement of his pain with hydration and IV morphine. Please see hospitalist's dictations for further treatment and final disposition. Administered Medications Sodium Chloride (Nss) 1,000 mls @ 125 mls/hr IV .Q8H AMADO Stop: 04/06/24 12:52 Last Admin: 03/07/24 14:31 Dose: 125 mls/hr Documented By: JEFFERY Ketorolac Tromethamine (Ketorolac 30 Mg/Ml Vial) 30 mg IV Q6H PRN PRN Reason: Mild Pain (Scale 1, 2, 3) Last Admin: 03/07/24 14:29 Dose: 30 mg Documented By: JEFFERY Discontinued Medications Sodium Chloride (Nss) 1,000 mls @ 999 mls/hr IV .Q1H1M STA Stop: 03/07/24 09:33 Last Infusion: 03/07/24 09:49 Dose: Infused Documented By: Admin: 03/07/24 08:45 Dose: 999 mls/hr Documented By: RUDY Sodium Chloride (Nss) 500 mls @ 999 mls/hr IV .Q31M ONE Stop: 03/07/24 10:03 Last Infusion: 03/07/24 10:20 Dose: Infused Documented By: Admin: 03/07/24 09:42 Dose: 999 mls/hr Documented By: RUDY Ketorolac Tromethamine (Ketorolac Tromethamine 15 Mg/Ml Vial) 15 mg IV NOW STA Stop: 03/07/24 08:34 Last Admin: 03/07/24 08:45 Dose: 15 mg Documented By: RUDY Morphine Sulfate (Morphine Sulfate 4 Mg/Ml 1 Ml Carp\Vial) 4 mg IV NOW STA Stop: 03/07/24 08:34 Last Admin: 03/07/24 08:45 Dose: 4 mg Documented By: RUDY Medical Decision Making Medical Records Attestation: I reviewed the patient's medical records. Home Medications was personally reviewed by me Laboratory Data Attestation: I reviewed the patient's lab results. 03/07/24 08:37 03/07/24 08:37 Lab Results 03/07/24 03/07/24 03/07/24 Range/Units 08:37 08:50 08:57 WBC 10.25 (4.8-10.8) K/ul RBC 2.22 L (4.70-6.10) M/uL Hgb 8.2 L (14.0-18.0) g/dl Hct 21.7 L (42.0-52.0) % MCV 97.7 (80.0-100.0) fL MCH 36.9 H (25.0-34.0) pg MCHC 37.8 H (32.0-36.0) g/dL RDW Std Deviation 75.7 H (36.4-46.3) fL RDW Coeff of Luis 22.3 H (11.5-14.5) % Plt Count 307 (130-400) K/uL MPV 9.6 (9.4-12.4) fL Immature Gran % (Auto) 1.9 % Neut % (Auto) 45.5 % Lymph % (Auto) 41.3 % [place] % (Auto) 7.9 % Eos % (Auto) 2.7 % Baso % (Auto) 0.7 % Reticulocyte % (Auto) 19.26 H (0.50-2.00) % Neut # (Auto) 4.67 (1.40-6.50) K/uL Lymph # (Auto) 4.23 H (1.20-3.40) K/uL [place] # (Auto) 0.81 H (0.11-0.59) K/uL Eos # (Auto) 0.28 (0.00-0.50) K/uL Baso # (Auto) 0.07 (0.00-0.20) K/uL Reticulocyte # 0.450 H (0.020-0.100) 10^6/uL Immature Gran # (Auto) 0.19 (0.01-0.20) K/uL Absolute Nucleated RBC 0.26 H (0.00-0.12) K/uL Nucleated RBC % (auto) 2.5 % Polychromasia 2+ Anisocytosis Present Sickle Cells 2+ Target Cells 1+ ESR < 1 (0-15) mm/hr PT 11.8 (9.0-12.0) Seconds INR 1.1 (0.9-1.1) Sodium 138 (136-145) mmol/L Potassium 4.3 (3.5-5.1) mmol/L Chloride 109 H (98-107) mmol/L Carbon Dioxide 24 (21-32) mmol/L Anion Gap 5 (3-11) BUN 6 (6-23) mg/dl Creatinine 0.66 (0.6-1.4) mg/dl Est Cr Clr Drug Dosing Not Reportable Est GFR ( Amer) > 150.0 ml/min Est GFR (Non-Af Amer) 130.7 ml/min BUN/Creatinine Ratio 9.1 L (10-20) Glucose 106 H (70-99(Fasting)) mg/dl Lactate 1.5 (0.4-2.0) mmol/L Calcium 8.3 L (8.6-10.3) mg/dl Phosphorus 3.3 (2.5-4.9) mg/dl Magnesium 2.1 (1.7-2.4) mg/dl Iron 195 H (35-175) mcg/dl TIBC 217 L (250-450) mcg/dl Transferrin 155 L (200-360) mg/dl Transferrin % Sat TNP Total Bilirubin 12.2 H (0.2-1.0) mg/dl AST 37 (13-39) U/L ALT 21 (7-52) U/L Alkaline Phosphatase 73 (34-104) U/L Total Creatine Kinase 36 (30-223) U/L C-Reactive Protein < 0.50 (0-0.5) mg/dl Total Protein 6.7 (6.0-8.3) gm/dl Albumin 4.1 (3.4-5.0) gm/dl Globulin 2.6 (2.5-4.0) gm/dl Albumin/Globulin Ratio 1.6 (0.9-2) Vitamin B12 458 (180-914) pg/ml Folate > 22.30 (>5.38) ng/ml Procalcitonin 0.03 (0-0.5) ng/ml Urine Color Urine Appearance (Clear) Urine pH (4.5-7.5) Ur Specific [place] (1.000-1.030) Urine Protein (Negative) Urine Glucose (UA) (Negative) Urine Ketones (Negative) Urine Blood (Negative) Urine Nitrite (Negative) Urine Bilirubin (Negative) Urine Urobilinogen (Negative) Ur Leukocyte Esterase (Negative) Urine WBC (Auto) (0-5) /hpf Urine RBC (Auto) (0-2) /hpf U Hyaline Cast (Auto) (0-2) /lpf U Epithel Cells (Auto) (0-2) /hpf Urine Bacteria (Auto) (None Seen) Adenovirus (PCR) Not Detected (NotDetected) B. pertussis DNA (PCR) Not Detected (NotDetected) B.parapertussis DNA PCR Not Detected (NotDetected) C. pneumoniae DNA (PCR) Not Detected (NotDetected) Coronavirus OC43 (PCR) Not Detected (NotDetected) Coronavirus HKU1 (PCR) Not Detected (NotDetected) Coronavirus 229E (PCR) Not Detected (NotDetected) SARS-CoV-2 (PCR) Not Detected (NotDetected) Coronavirus NL63 (PCR) Not Detected (NotDetected) Human Metapneumovir PCR Not Detected (NotDetected) Influenza Type A (PCR) Not Detected (NotDetected) Influenza Type B (PCR) Not Detected (NotDetected) M. pneumoniae (PCR) Not Detected (NotDetected) Parainfluenza 1 (PCR) Not Detected (NotDetected) Parainfluenza 2 (PCR) Not Detected (NotDetected) Parainfluenza 3 (PCR) Not Detected (NotDetected) Parainfluenza 4 (PCR) Not Detected (NotDetected) RSV (PCR) Not Detected (NotDetected) Entero/Rhino (PCR) Not Detected (NotDetected) 03/07/24 Range/Units 09:15 WBC (4.8-10.8) K/ul RBC (4.70-6.10) M/uL Hgb (14.0-18.0) g/dl Hct (42.0-52.0) % MCV (80.0-100.0) fL MCH (25.0-34.0) pg MCHC (32.0-36.0) g/dL RDW Std Deviation (36.4-46.3) fL RDW Coeff of Luis (11.5-14.5) % Plt Count (130-400) K/uL MPV (9.4-12.4) fL Immature Gran % (Auto) % Neut % (Auto) % Lymph % (Auto) % [place] % (Auto) % Eos % (Auto) % Baso % (Auto) % Reticulocyte % (Auto) (0.50-2.00) % Neut # (Auto) (1.40-6.50) K/uL Lymph # (Auto) (1.20-3.40) K/uL [place] # (Auto) (0.11-0.59) K/uL Eos # (Auto) (0.00-0.50) K/uL Baso # (Auto) (0.00-0.20) K/uL Reticulocyte # (0.020-0.100) 10^6/uL Immature Gran # (Auto) (0.01-0.20) K/uL Absolute Nucleated RBC (0.00-0.12) K/uL Nucleated RBC % (auto) % Polychromasia Anisocytosis Sickle Cells Target Cells ESR (0-15) mm/hr PT (9.0-12.0) Seconds INR (0.9-1.1) Sodium (136-145) mmol/L Potassium (3.5-5.1) mmol/L Chloride (98-107) mmol/L Carbon Dioxide (21-32) mmol/L Anion Gap (3-11) BUN (6-23) mg/dl Creatinine (0.6-1.4) mg/dl Est Cr Clr Drug Dosing Est GFR ( Amer) ml/min Est GFR (Non-Af Amer) ml/min BUN/Creatinine Ratio (10-20) Glucose (70-99(Fasting)) mg/dl Lactate (0.4-2.0) mmol/L Calcium (8.6-10.3) mg/dl Phosphorus (2.5-4.9) mg/dl Magnesium (1.7-2.4) mg/dl Iron (35-175) mcg/dl TIBC (250-450) mcg/dl Transferrin (200-360) mg/dl Transferrin % Sat Total Bilirubin (0.2-1.0) mg/dl AST (13-39) U/L ALT (7-52) U/L Alkaline Phosphatase (34-104) U/L Total Creatine Kinase (30-223) U/L C-Reactive Protein (0-0.5) mg/dl Total Protein (6.0-8.3) gm/dl Albumin (3.4-5.0) gm/dl Globulin (2.5-4.0) gm/dl Albumin/Globulin Ratio (0.9-2) Vitamin B12 (180-914) pg/ml Folate (>5.38) ng/ml Procalcitonin (0-0.5) ng/ml Urine Color Dark Yellow Urine Appearance Clear (Clear) Urine pH 7.5 (4.5-7.5) Ur Specific [place] 1.010 (1.000-1.030) Urine Protein Trace H (Negative) Urine Glucose (UA) Negative (Negative) Urine Ketones Negative (Negative) Urine Blood Trace H (Negative) Urine Nitrite Negative (Negative) Urine Bilirubin Negative (Negative) Urine Urobilinogen Positive H (Negative) Ur Leukocyte Esterase Negative (Negative) Urine WBC (Auto) 0-5 (0-5) /hpf Urine RBC (Auto) 0-2 (0-2) /hpf U Hyaline Cast (Auto) 0-2 (0-2) /lpf U Epithel Cells (Auto) 0-2 (0-2) /hpf Urine Bacteria (Auto) None Seen (None Seen) Adenovirus (PCR) (NotDetected) B. pertussis DNA (PCR) (NotDetected) B.parapertussis DNA PCR (NotDetected) C. pneumoniae DNA (PCR) (NotDetected) Coronavirus OC43 (PCR) (NotDetected) Coronavirus HKU1 (PCR) (NotDetected) Coronavirus 229E (PCR) (NotDetected) SARS-CoV-2 (PCR) (NotDetected) Coronavirus NL63 (PCR) (NotDetected) Human Metapneumovir PCR (NotDetected) Influenza Type A (PCR) (NotDetected) Influenza Type B (PCR) (NotDetected) M. pneumoniae (PCR) (NotDetected) Parainfluenza 1 (PCR) (NotDetected) Parainfluenza 2 (PCR) (NotDetected) Parainfluenza 3 (PCR) (NotDetected) Parainfluenza 4 (PCR) (NotDetected) RSV (PCR) (NotDetected) Entero/Rhino (PCR) (NotDetected) Imaging Data Attestation: I personally reviewed and interpreted this imaging study as follows: My Impression: My interpretation of the portable chest x-ray does not show any consolidations, pneumothorax or cardiac prominence. Radiology report was also reviewed with concurrence. Radiologist's Impression: Chest X-Ray 03/07/24 08:33 XR chest 1V portable HISTORY: 28 years-old Male Sickle cell crisis acute shortness of breath COMPARISON: 01/31/2024 TECHNIQUE: AP view of the chest FINDINGS: Cardiac silhouette is enlarged. No pneumothorax, pleural effusion or airspace consolidation. The bones appear grossly intact. IMPRESSION: No acute process. ACT 112: Negative or not required by law. The above report was generated using voice recognition software. It may contain grammatical, syntax or spelling errors. Electronically signed by: Ruperto Fair M.D. 03/07/2024 9:22 AM ECG Data Attestation: I personally reviewed and interpreted this ECG as follows: Indication: + other (Sickle cell crisis) Rate (beats per minute): 77 Rhythm: + normal sinus ECG Intervals/blocks: + Normal QRS, + Normal QT and + Normal [place] ECG Moody: + Normal ECG ST segments: + Normal ST segments Comparison ECG Date: from (11/19/2023) Change: the following changes noted (First-degree block has resolved from previous) MDM Narrative Cardiac monitoring: An order was placed for continuous cardiac monitoring. The monitor shows a rate of 61 beats per with a normal sinus rhythm. night monitor history was reviewed throughout the evaluation, and no dysrhythmias were noted. See ED Course section for further details of today's visit. The patient presents with complaint of bilateral lower extremity pain. Patient does have a prior history of admission for sickle cell crisis, and the patient presents today with similar symptoms. It is noted that the patient also has a history of anemia, with a hemoglobin today of 8.2. On his last admission, he did require a transfusion of 2 units of packed red blood cells. This decision will be left to the hospitalist and hematology/oncology. Today's workup is not suggestive of major infectious etiology. Patient does not have a fever or elevated white count. An upper respiratory panel PCR test was also negative. Chest x-ray does not show evidence for pneumothorax, heart failure or pneumonia. Patient does not have any significant peripheral edema, and pedal pulses are intact as well. Given current protocols for sickle cell crisis, I do feel the patient warrants admission. Impression Sickle cell crisis, Anemia, Hyperbilirubinemia Discharge Plan Visit Data Chief Complaint: Illness Stated Complaint: POSSIBLE DEHYDRATION BILATERAL LEG PAIN ED Provider: Zeke Partida ED Midlevel Provider: Rhett Gonsales Discharge Problem: Sickle cell crisis, Anemia, Hyperbilirubinemia Patient Disposition: Admitted As Inpatient Discharge Instructions Interventions: ED Discharge Assessment Last Done: 03/07/24 13:51
[2024-03-07 09:32] LABS: Anisocytosis Present; Polychromasia 2+; Sickle Cells 2+; Target Cells 1+
[2024-03-07 09:35] LABS: INR 1.1 (0.9-1.1); Prothrombin Time 11.8 Seconds (9.0-12.0)
[2024-03-07] MEDS: SODIUM CHLORIDE 0.9% 500 ML IV ONE (09:42)
--- NOTE | 2024-03-07 09:53 | History & Physical Report ---
Date of Service March 07, 2024 Assessment & Plan (1) Sickle cell crisis: (2) Anemia: (3) Hyperbilirubinemia: Plan This is a 28 year old male who has a significant PMH of sickle cell anemia, hx of seizure disorder who presents to ED 2/2 b/l leg pain that started at 6:30 a.m. Sickle cell crisis Sickle cell anemia Hyperbilirubinemia admit to med tele continue with IVF prn analgesia, toradol for mild pain, oxy IR for moderate pain and IV morphine for severe pain follow h/h likely vaso occlusive at this point, closely monitor follows with Dr. Moon Hx of concussion, TBI hx of seizure d/o 2/2 above, has been tapered off Keppra on chronic nortriptyline for headaches DVT ppx: SQ Lovenox FULL CODE PCP: Dr. Duron Dispo: admit to med tele, likely d/c in 1-2 days Pt was seen and examined in collaboration with Dr. Tong, please see addendum A total of 43 minutes was spent coordinating, documenting, and providing care for this patient excluding time spent in the performance of separately billed services. This included personally viewing all current laboratories and imaging studies, medication reconciliation, outpatient chart review, and discussion with specialists. History of Present Illness Chief Complaint: B/L leg pain with cramping since 6:30 a.m. Primary Care Provider: HARSHAD Velasquez This is a 28 year old male who has a significant PMH of sickle cell anemia, hx of seizure disorder who presents to ED 2/2 b/l leg pain that started at 6:30 a.m. He has hx of sickle cell crisis in the past, but this does not feel as severe. He feels he is dehydrated and has not drank much the last few days. A friend is at bedside who also reiterates this. He denies any alcohol use or tobacco abuse. He does Vape and use marijuana. He denies any recent illness, f/c/s, chest pain, sob, n/v/d, abd pain. He does have oxycodone that he uses at home. He uses it when he feels, "severe pain." He is not requiring it everyday. He denies any skin rashes. He denies issues moving bowels or urinating. He feels his urine is dark due to being dehydrated. Allergies Allergy/AdvReac Type Severity Reaction Status Date / Time No Known Allergies Allergy Verified 03/07/24 09:58 Home Medications Medication Instructions Recorded Confirmed Type folic acid 1 mg tablet 1 mg PO DAILY 10/04/23 03/07/24 History magnesium oxide 400 mg PO DAILY 10/04/23 03/07/24 History riboflavin (vitamin B2) 400 mg 400 mg PO DAILY 10/04/23 03/07/24 History tablet nortriptyline 10 mg capsule 200 mg PO HS 03/07/24 03/07/24 History Past Med/Surg History Medical History (Updated 03/07/24 @ 09:54 by Rossana Fung PA-C) Psychogenic nonepileptic seizure No longer on Keppra Hyperbilirubinemia Sickle cell disease Surgical History (Updated 03/07/24 @ 09:56 by Rossana Fung PA-C) Hx of cholecystectomy Family History (Updated 03/07/24 @ 09:56 by Rossana Fung PA-C) Other Sickle cell anemia Social History Smoking Status: Current every day smoker Tobacco Type: E-cigarettes / Vaping Second Hand Exposure: No; Do You Dip or Chew Tobacco: No; Hx Alcohol Use: No Hx Substance Use: Yes Preferred Language: Indian Communication Ability: Effective Master Data Analyst Required: No Beliefs That Will Affect Care: None Current Living Situation: Family Current Living Situation Comment: Lives w/ half-brother Feels Safe at Home: Yes Assistive Devices: None Review of Systems Review of Systems: All systems reviewed & are unremarkable except as noted in HPI & below Physical Exam Physical Exam: please refer to DR. tong addendum for physical exam findings. Results & Data Results & Data Vital Signs (Past 12 Hours) Vital Signs Temp Pulse Resp BP Pulse Ox O2 Del Method 03/07/24 09:00 70 20 143/87 H 95 Room Air 03/07/24 08:36 77 03/07/24 07:59 37.0 C 83 20 132/61 98 Room Air Diagnostic Findings Chest X-Ray 03/07/24 08:33 XR chest 1V portable HISTORY: 28 years-old Male Sickle cell crisis acute shortness of breath COMPARISON: 01/31/2024 TECHNIQUE: AP view of the chest FINDINGS: Cardiac silhouette is enlarged. No pneumothorax, pleural effusion or airspace consolidation. The bones appear grossly intact. IMPRESSION: No acute process. ACT 112: Negative or not required by law. The above report was generated using voice recognition software. It may contain grammatical, syntax or spelling errors. Electronically signed by: Ruperto Fair M.D. 03/07/2024 9:22 AM Medications Administered Medication List Sodium Chloride (Nss) 500 mls @ 999 mls/hr IV .Q31M ONE Stop: 03/07/24 10:03 Last Admin: 03/07/24 09:42 Dose: 999 mls/hr Documented By: RUDY Discontinued Medications Sodium Chloride (Nss) 1,000 mls @ 999 mls/hr IV .Q1H1M STA Stop: 03/07/24 09:33 Last Infusion: 03/07/24 09:49 Dose: Infused Documented By: Admin: 03/07/24 08:45 Dose: 999 mls/hr Documented By: RUDY Ketorolac Tromethamine (Ketorolac Tromethamine 15 Mg/Ml Vial) 15 mg IV NOW STA Stop: 03/07/24 08:34 Last Admin: 03/07/24 08:45 Dose: 15 mg Documented By: RUDY Morphine Sulfate (Morphine Sulfate 4 Mg/Ml 1 Ml Carp\\Vial) 4 mg IV NOW STA Stop: 03/07/24 08:34 Last Admin: 03/07/24 08:45 Dose: 4 mg Documented By: RUDY COVID-19 Results Results COVID-19 Adm Lab Results: RBC 2.22 M/uL (4.70-6.10) L 03/07/24 WBC 10.25 K/ul (4.8-10.8) 03/07/24 Hgb 8.2 g/dl (14.0-18.0) L 03/07/24 Hct 21.7 % (42.0-52.0) L 03/07/24 Plt Count 307 K/uL (130-400) 03/07/24 Neutrophils (%) (Auto) 45.5 % 03/07/24 Lymphocytes (%) (Auto) 41.3 % 03/07/24 Monocytes # (Auto) 0.81 K/uL (0.11-0.59) H 03/07/24 Eosinophils # (Auto) 0.28 K/uL (0.00-0.50) 03/07/24 Immature Granulocyte % (Auto) 1.9 % 03/07/24 Neutrophils # (Auto) 4.67 K/uL (1.40-6.50) 03/07/24 Lymphocytes # (Auto) 4.23 K/uL (1.20-3.40) H 03/07/24 Monocytes # (Auto) 0.81 K/uL (0.11-0.59) H 03/07/24 Eosinophils # (Auto) 0.28 K/uL (0.00-0.50) 03/07/24 Basophils # (Auto) 0.07 K/uL (0.00-0.20) 03/07/24 Immature Granulocyte # (Auto) 0.19 K/uL (0.01-0.20) 4 Polychromasia 2+ 03/07/24 Anisocytosis Present 03/07/24 Sickle Cells 2+ 03/07/24 Target Cells 1+ 03/07/24 Na 138 mmol/L (136-145) 03/07/24 K 4.3 mmol/L (3.5-5.1) 03/07/24 Cl 109 mmol/L (98-107) H 03/07/24 CO2 24 mmol/L (21-32) 03/07/24 Anion Gap 5 (3-11) 03/07/24 BUN 6 mg/dl (6-23) 03/07/24 Creatinine 0.66 mg/dl (0.6-1.4) 03/07/24 BUN/Creatinine Ratio 9.1 (10-20) L 03/07/24 Glucose Level 106 mg/dl (70-99(Fasting)) H 03/07/24 Ca 8.3 mg/dl (8.6-10.3) L 03/07/24 Phosphorus Level 3.3 mg/dl (2.5-4.9) 03/07/24 Total Bilirubin 12.2 mg/dl (0.2-1.0) H 03/07/24 AST/SGOT 37 U/L (13-39) 03/07/24 ALT/SGPT 21 U/L (7-52) 03/07/24 Alkaline Phosphatase 73 U/L (34-104) 03/07/24 Total Protein 6.7 gm/dl (6.0-8.3) 03/07/24 Albumin 4.1 gm/dl (3.4-5.0) 03/07/24 Globulin 2.6 gm/dl (2.5-4.0) 03/07/24 Albumin/Globulin Ratio 1.6 (0.9-2) 03/07/24 Total CK 36 U/L (30-223) 03/07/24 CRP < 0.50 mg/dl (0-0.5) 03/07/24 Procalcitonin 0.03 ng/ml (0-0.5) 03/07/24 INR 1.1 (0.9-1.1) 03/07/24 Adenovirus (PCR) Not Detected (NotDetected) 03/07/24 B. parapertussis DNA (PCR) Not Detected (NotDetected) 02/08 08/02 B. pertussis DNA (PCR) Not Detected (NotDetected) 03/07/24 C. pneumoniae DNA (PCR) Not Detected (NotDetected) 4 Coronavirus Type OC43 (PCR) Not Detected (NotDetected) Coronavirus Type HKU1 (PCR) Not Detected (NotDetected) Coronavirus Type 229E (PCR) Not Detected (NotDetected) COVID-19 PCR Not Detected (NotDetected) 03/07/24 Coronavirus Type NL63 (PCR) Not Detected (NotDetected) Human Metapneumovirus (PCR) Not Detected (NotDetected) Influenza Virus Type A (PCR) Not Detected (NotDetected) Influenza Virus Type B (PCR) Not Detected (NotDetected) M. pneumoniae (PCR) Not Detected (NotDetected) 03/07/24 Parainfluenza Type 1 (PCR) Not Detected (NotDetected) 02/08 08/02 Parainfluenza Type 2 (PCR) Not Detected (NotDetected) 02/08 08/02 Parainfluenza Type 3 (PCR) Not Detected (NotDetected) 02/08 08/02 Parainfluenza Type 4 (PCR) Not Detected (NotDetected) 02/08 08/02 RSV (PCR) Not Detected (NotDetected) 03/07/24 Enterovirus/Rhinovirus (PCR) Not Detected (NotDetected) Chest X-Ray 03/07/24 Code Status & VTE Plan Code Status FULL CODE VTE Prophylaxis Plan VTE Prophylaxis will be ordered: Yes Supervising Physician Co-Signing Physician Notes I have seen and discussed the case with the collaborating advanced practitioner. I agree with the above H&P. I have reviewed and confirmed the patients medical history, the findings on physical examination, and the patients diagnosis and treatment plan with Antonieta FERRARI and agree with the information documented. Mr Butler is a 28 year old gentleman with history of SS disease who presents with new onset bilateral leg pain. He states this is usually indicative of his sickle cell crises previously. He denies chest pain, palpitations, SOB, or MOYA. He reports his urine is dark, but he attributes it to dehydration. He states he has been exhausted and overheated--he also notes that he does not drink nearly "as much as [he] should." He states that this is not as severe as his prior because he wanted to come early before the pain become unbearable. He states he takes oxycodone 5mg as needed--but it isn't often, he does not use it everyday. Denies etoh, endorse occasional vaping. GENERAL APPEARANCE: AxOx4, generally well-appearing male, no acute distress. HEENT: NC, AT. MMM. EOMI, scleral icterus NECK: Supple without lymphadenopathy. No stiffness or restricted ROM. HEART: Normal rate and regular rhythm, normal S1/S1, no m/r/g LUNGS: CTAB, moving air well. No crackles or wheezes are heard. ABDOMEN: Soft, nontender, nondistended with good bowel sounds heard. BACK: No CVAT, no obvious deformity. EXTREMITIES: Without cyanosis, clubbing or edema. NEUROLOGICAL: Grossly nonfocal. Alert and oriented, moving all 4 extremities. CN not formally tested but appear grossly intact. Skin: Warm and dry without any rash #Sickle Cell Crisis #SS Disease Hemoglobin 8.2, retic count 19.26 Last crisis 09/2023 Previously treated with hydroxurea, no longer taking Follows Dr Moon -Trend CBC with retic count, bili, and LDH -IVF @125cc/hr -Morphine severe pain, oxycodone moderate, toradol mild prn Rest of plan as above I spent a total of 35 minutes coordinating, documenting, and providing care for this patient excluding time spent in the performance of separately billed services. All of the aforementioned completed outside of collaborating with the assigned advanced practitioner for a full treatment plan. I have reviewed the advanced practitioner's documentation, and I agree with, and take responsibility for the plan of care
[2024-03-07 10:07] LABS: Appearance Urine Clear (Clear); Bacteria Urine Automated None Seen (None Seen); Bilirubin Urine Negative (Negative); Blood Urine Trace (Negative); Cast Urine Automated 0-2 /lpf (0-2); Color Urine Dark Yellow; Epithelial Cell Urine Auto 0-2 /hpf (0-2); Glucose Urine UA Negative (Negative); Ketones Urine Negative (Negative); Leukocyte Esterase Urine Negative (Negative); Nitrite Urine Negative (Negative); Protein Urine Trace (Negative); RBC Urine Automated 0-2 /hpf (0-2); Urobilinogen Urine Positive (Negative); WBC Urine Automated 0-5 /hpf (0-5); pH Urine 7.5 (4.5-7.5)
[2024-03-07 10:07] LABS: Adenovirus PCR Not Detected (NotDetected); Bordetella parapertussis PCR Not Detected (NotDetected); Bordetella pertussis PCR Not Detected (NotDetected); Chlamydia pneumoniae PCR Not Detected (NotDetected); Coronavirus 229E PCR Not Detected (NotDetected); Coronavirus CoV-2 (COVID19)PCR Not Detected (NotDetected); Coronavirus HKU1 PCR Not Detected (NotDetected); Coronavirus NL63 PCR Not Detected (NotDetected); Coronavirus OC43PCR Not Detected (NotDetected); Human Metapneumovirus PCR Not Detected (NotDetected); Influenza A PCR Not Detected (NotDetected); Influenza B PCR Not Detected (NotDetected); Mycoplasma pneumoniae PCR Not Detected (NotDetected); Parainfluenza Virus 1 PCR Not Detected (NotDetected); Parainfluenza Virus 2 PCR Not Detected (NotDetected); Parainfluenza Virus 3 PCR Not Detected (NotDetected); Parainfluenza Virus 4 PCR Not Detected (NotDetected); Respiratory Syncytial VirusPCR Not Detected (NotDetected); Rhinovirus/Enterovirus PCR Not Detected (NotDetected)
[2024-03-07 12:27] LABS: Iron 195 mcg/dl (35-175); Total Iron Binding Cap Calc 217 mcg/dl (250-450); Transferrin 155 mg/dl (200-360)
[2024-03-07 12:45] LABS: Folate (Folic Acid),Ser orPlas > 22.30 ng/ml (>5.38)
[2024-03-07 12:46] LABS: Vitamin B12 458 pg/ml (180-914)
[2024-03-07] MEDS ORDERED: ONDANSETRON INJ 2 MG/ML 2 ML VIAL IV PRN (12:53)
[2024-03-07] MEDS ORDERED: MAGNESIUM HYDROXIDE SUSP 30 ML UDC PO PRN (12:53)
[2024-03-07] MEDS ORDERED: MoRPHine SULFATE 4 MG/ML 1 ML CARP\\VIAL IV PRN (12:53)
[2024-03-07] MEDS ORDERED: ALUMINUM/MAGNESIUM SUSP 30 ML UDC PO PRN (12:53)
[2024-03-07] MEDS ORDERED: oxyCODONE HCL IR 5 MG TAB (IMMEDIATE RELEASE) PO PRN (12:53)
[2024-03-07] MEDS ORDERED: POLYETHYLENE (MIRALAX) 17 GM PACK PO PRN (12:53)
--- NOTE | 2024-03-07 13:10 | Electrocardiogram Report ---
Test Reason : Blood Pressure : / mmHG Vent. Rate : 077 BPM Atrial Rate : 077 BPM P-R Int : 200 ms QRS Dur : 104 ms QT Int : 390 ms P-R-T Axes : 048 071 042 degrees QTc Int : 441 ms Normal sinus rhythm Voltage criteria for left ventricular hypertrophy Abnormal ECG When compared with ECG of 19-NOV-2023 11:18, No significant change Confirmed by Arron Mercedes ([id number]) on 03/07/2024 1:09:41 PM Referred By: REFERRED SELF Confirmed By:Arron Mercedes
[2024-03-07] MEDS: KETOROLAC 30 MG/ML VIAL IV PRN (14:29)
[2024-03-07] MEDS: SODIUM CHLORIDE 0.9% 1,000 ML IV SCH (14:31)
[2024-03-07] MEDS: ACETAMINOPHEN 325 MG TAB PO PRN (17:49)
[2024-03-07] MEDS ORDERED: Nursing to Pharmacy Communication SCH (19:30)
[2024-03-07] MEDS: ENOXAPARIN INJ 40 MG/0.4 ML SYR SQ SCH (20:40)
[2024-03-07] MEDS: DOCUSATE SODIUM/SENNA 50/8.6MG TAB PO SCH (20:40)
[2024-03-08 06:54] LABS: Hematocrit (blood only) 19.1 % (42.0-52.0); Hemoglobin 7.2 g/dl (14.0-18.0); Mean Corpuscular Hemoglobin 36.5 pg (25.0-34.0); Mean Corpuscular Hgb Conc 37.7 g/dL (32.0-36.0); Mean Platelet Volume 9.8 fL (9.4-12.4); Nucleated RBC % (auto) 3.8 %; Platelet Count 302 K/uL (130-400); RDW Coefficient of Variation 21.2 % (11.5-14.5); RDW Standard Deviation 67.9 fL (36.4-46.3); Red Blood Count 1.97 M/uL (4.70-6.10); White Blood Count 7.98 K/ul (4.8-10.8)
[2024-03-08 07:06] LABS: Alanine Aminotransferase 33 U/L (7-52); Albumin Globulin Ratio 1.6 (0.9-2); Albumin Level 3.6 gm/dl (3.4-5.0); Alkaline Phosphatase 61 U/L (34-104); Anion Gap 6 (3-11); Aspartate Aminotransferase 40 U/L (13-39); BUN Creatinine Ratio 9.5 (10-20); Bilirubin,Total 13.5 mg/dl (0.2-1.0); Blood Urea Nitrogen 6 mg/dl (6-23); Carbon Dioxide 22 mmol/L (21-32); Chloride 111 mmol/L (98-107); Creatinine Clr Calc Pharmacy 176.2 ml/min; Est GFR (African American) > 150.0 ml/min; Est GFR (Non-African American) 133.2 ml/min; Globulin 2.2 gm/dl (2.5-4.0); Glucose 90 mg/dl (70-99(Fasting)); Magnesium 1.9 mg/dl (1.7-2.4); Sodium 139 mmol/L (136-145); Total Protein 5.8 gm/dl (6.0-8.3)
[2024-03-08 08:03] LABS: Anisocytosis Present; Basophils # (auto) 0.04 K/uL (0.00-0.20); Basophils % (auto) 0.5 %; Eosinophils % (auto) 3.8 %; Immature Granulocytes # (auto) 0.05 K/uL (0.01-0.20); Immature Granulocytes % (auto) 0.6 %; Lymphocytes % (auto) 37.6 %; Monocytes # (auto) 0.62 K/uL (0.11-0.59); Monocytes % (auto) 7.8 %; Neutrophils # (auto) 3.97 K/uL (1.40-6.50); Neutrophils % (auto) 49.7 %; Polychromasia 2+; Sickle Cells 1+; Target Cells 1+
--- NOTE | 2024-03-08 12:12 | Discharge Summary ---
Discharge Summary Date of Service March 08, 2024 Notes For Next Care Provider Please check CBC, CMP at discharge follow up. Hemoglobin at discharge was 7.2. Admitted for sickle cell crisis, vasoocclusive. Medication Changes From Visit Oxycodone 5mg every 6 hours as needed for severe pain. Admission HPI Per Admitting Provider This is a 28 year old male who has a significant PMH of sickle cell anemia, hx of seizure disorder who presents to ED 2/2 b/l leg pain that started at 6:30 a.m. He has hx of sickle cell crisis in the past, but this does not feel as severe. He feels he is dehydrated and has not drank much the last few days. A friend is at bedside who also reiterates this. He denies any alcohol use or tobacco abuse. He does Vape and use marijuana. He denies any recent illness, f/c/s, chest pain, sob, n/v/d, abd pain. He does have oxycodone that he uses at home. He uses it when he feels, "severe pain." He is not requiring it everyday. He denies any skin rashes. He denies issues moving bowels or urinating. He feels his urine is dark due to being dehydrated. Admission Exam Per Admitting Provider GENERAL APPEARANCE: AxOx4, generally well-appearing male, no acute distress. HEENT: NC, AT. MMM. EOMI, scleral icterus NECK: Supple without lymphadenopathy. No stiffness or restricted ROM. HEART: Normal rate and regular rhythm, normal S1/S1, no m/r/g LUNGS: CTAB, moving air well. No crackles or wheezes are heard. ABDOMEN: Soft, nontender, nondistended with good bowel sounds heard. BACK: No CVAT, no obvious deformity. EXTREMITIES: Without cyanosis, clubbing or edema. NEUROLOGICAL: Grossly nonfocal. Alert and oriented, moving all 4 extremities. CN not formally tested but appear grossly intact. Skin: Warm and dry without any rash Principal Dx & Hospital Course #1 = Principal Diagnosis (1) Sickle cell crisis: (2) Anemia: (3) Hyperbilirubinemia: Plan This is a 28 year old male who has a significant PMH of sickle cell anemia, hx of seizure disorder who presents to ED 2/2 b/l leg pain that started at 6:30 a.m. Sickle cell crisis Sickle cell anemia Hyperbilirubinemia admit to med tele continue with IVF prn analgesia, toradol for mild pain, oxy IR for moderate pain and IV morphine for severe pain follow h/h likely vaso occlusive at this point, closely monitor follows with Dr. Moon Hx of concussion, TBI hx of seizure d/o 2/2 above, has been tapered off Keppra on chronic nortriptyline for headaches DVT ppx: SQ Lovenox FULL CODE PCP: Dr. Duron Dispo: admit to [facility] tele, likely d/c in 1-2 days Pt was seen and examined in collaboration with Dr. Swanson, please see addendum A total of 43 minutes was spent coordinating, documenting, and providing care for this patient excluding time spent in the performance of separately billed services. This included personally viewing all current laboratories and imaging studies, medication reconciliation, outpatient chart review, and discussion with specialists. Discharge Exam Gen: WD/WN, NAD, A&O x3 HEENT: Normocephalic, atraumatic, conjunctivae moist, sclerae anicteric, mucous membranes moist. Lung: Clear to Auscultation bilaterally, no wheezes/rales/rhonchi Heart: Regular rate, regular rhythm, no murmurs, rubs, or gallops Abdomen: Soft, NT, ND +BS x 4 Extremities: No edema Skin: Warm, no rash, negative turgor. Updated Medication List Medication Instructions Recorded Confirmed Type folic acid 1 mg tablet 1 mg PO DAILY 10/04/23 03/07/24 History magnesium oxide 400 mg PO DAILY 10/04/23 03/07/24 History riboflavin (vitamin B2) 400 mg 400 mg PO DAILY 10/04/23 03/07/24 History tablet nortriptyline 10 mg capsule 200 mg PO HS 03/07/24 03/07/24 History oxycodone 5 mg tablet 5 mg PO Q4H PRN pain #15 tabs 03/08/24 Rx Hospital Stay Data Consultations 03/07/24 09:32 ED Decision to Admit Stat Diagnostic Imagining Performed Chest X-Ray 03/07/24 08:33 XR chest 1V portable HISTORY: 28 years-old Male Sickle cell crisis acute shortness of breath COMPARISON: 01/31/2024 TECHNIQUE: AP view of the chest FINDINGS: Cardiac silhouette is enlarged. No pneumothorax, pleural effusion or airspace consolidation. The bones appear grossly intact. IMPRESSION: No acute process. ACT 112: Negative or not required by law. The above report was generated using voice recognition software. It may contain grammatical, syntax or spelling errors. Electronically signed by: Ruperto Fair M.D. 03/07/2024 9:22 AM Pending Results Patient Have Any Pending Studies at Discharge: No Discharge Instructions Given to Patient (Per Discharging Provider) MEDICATION CHANGES: Oxycodone 5mg every 6 hours as needed for severe pain. Continue all other medications as prescribed. SUMMARY OF TEST RESULTS: You were admitted for a vaso-occlusive sickle cell crisis. You were treated with IV fluids and your symptoms improved. Your hemoglobin on day of discharge is 7.2. PENDING TEST RESULTS: None RECOMMENDATIONS FOR FOLLOW-UP: Please follow-up with your primary care provider as scheduled. It is recommended that at your primary care follow-up you have your blood work repeated including a CBC and CMP to monitor your hemoglobin and liver functions. It is recommended that you stay well-hydrated. Please drink 80 to 100 ounces of water or noncaffeinated beverages daily. Please avoid strenuous exercise or activity until you follow-up with your primary care provider. Please follow-up with your nurse behavioral health care, Dr. Moon, as scheduled. He was made aware of your admission to the hospital and he recommends no further changes. OTHER INSTRUCTIONS: Seek medical attention if you have: * temperature above 101 * chest pain or trouble breathing * abdominal pain, nausea, vomiting * diarrhea, dark stools or bloody stools * any unanswered questions or concerns Call 911 if symptoms are severe. Please take good care of yourself. It has been a pleasure taking care of you. Please take care of yourself. If you have any questions regarding your recent hospitalization please contact [facility] and request Tulio Gómezist @ [phone]. Total Time Total Time Spent Total Time Spent (In Minutes): 45 minutes Supervising Physician Co-Signing Physician Notes Patient seen and examined independently. Discussed with above provider. Patient admitted for sickle cell pain crisis; reports improvement in the symptoms with IV hydration and pain control He wants to get discharged. Recommended follow-up with PCP and hematology as outpatient Patient provided opioid analgesics for pain control at time of the discharge I have reviewed the advanced practitioner's documentation, and I agree with, and take responsibility for the plan of care I spent a total of 20 minutes coordinating, documenting, and providing care for this patient excluding time spent in the performance of separately billed services. All of the aforementioned completed while collaborating with the assigned advanced practitioner for a full treatment plan.
--- OUTSIDE RECORDS SUMMARY | 2024-03-09 07:26 | External Medical Summary | Summary of Care ---
Author Name Unknown Organization [facility] Address [address] [place] [address] Phone [phone] Care Team Providers Care Acquisitions Librarian Name Role Phone Amos Buckley MD Primary Care Provider [phone] Reason for Visit * Reason Onset Date Comments Medication Refill 03/01/2024 Pre Cert/Prior Auth 03/01/2024 Encounter Details Date Type Department Care Team (Late st Contact Info) Description 03/01/2024 Refill [facility] [address] [facility] [address] Amos [facility] [address] [facility] [place] [address] Sickle cell disease, with acute chest syndrome (HCC) Allergies No known active allergiesdocumented as of this encounter (statuses as of 03/07/2024) Medications Medication Sig Dispensed Refills Start Date [...] as of this encounter (statuses as of 03/07/2024) Active Problems Problem Noted Date Diagnosed Date Psychogenic nonepileptic seizure 11/22/2023 Post concussion syndrome 10/13/2023 Sickle cell anemia 11/21/2003 documented as of this encounter (statuses as of 03/07/2024) Resolved Problems Problem Noted Date Diagnosed Date Resolved Date Seizure disorder, simple par tial, without intractable epilepsy 10/19/2023 10/20/2023 documented as of this encounter (statuses as of 03/07/2024) Social History Tobacco Use Types Packs/Day Years [...] encounter Miscellaneous Notes * Telephone Encounter - Katiuska Ames PHARM Tech - 03/07/2024 3:07 PM EDT Pharmacy calling to inform doctor that the patient's insurance will not pay for this medication without a completed prior authorization. Did confirm this information with the pharmacy. Pt's current insurance information is as follows: Patient name: Le Alanis ID number: [id number] BIN number: [id number] N [id number] Group number: none Subscriber name: Le Alanis Primary or Secondary Insurance:Primary Medication: oxyCODONE HCl 5 MG Oral Tablet (Oxy IR) 60 Tab Reason for Request: Prior Authorization Pharmacy and phone number: [facility] [address] [phone] Rx plan and phone number: [employer] [phone] Is this a new medication for the patient? No. How did the patient obtain the medication on the lastfill? It was covered last time on this same insurance. What alternative medications does the pharmacy have in stock?: n/a Thank you, Katiuska Ames Photographic Artist [facility] 03/07/2024,3:08 PM * Telephone Encounter - Amos Buckley MD - 03/02/2024 3:08 PM EDTSigned Prescriptions: Disp Refills oxyCODONE HCl 5 MG Oral Tablet (Oxy IR) 60 Tab*0 Sig: Take 1 Tablet by mouth every 6 hours as needed for Pain, Severe. Authorizing Provider: AMOS BUCKLEY * Telephone Encounter - Delmy Hager [facility] - 03/02/2024 2:16 PM EDTPending Prescriptions: Disp Refills oxyCODONE HCl 5 MG Oral Tablet (Oxy IR) 60 Tab*0 Sig: Take 1 Tablet by mouth every 6 hours as needed for Pain, Severe. * Telephone Encounter - Delmy Hager RPh - 03/02/2024 2:14 PM EDT I have reviewed the patients controlled substance dispensing history in the Prescription Drug Monitoring Program in compliance with the [facility] regulations before prescribing a controlled substance. PDMP [...] for refill: 10/24/23 Pharmacy: [facility] Is this request for a controlled substance? Yes and Urine Drug Screen Not completed Toxicology results: No results found for this or any previous visit. Please approve if appropriate. Thanks, Delmy Hager Clinical Pharmacist [facility] ([facility]) [phone] 03/02/2024, 2:14 PM documented in this encounter Plan of Treatment Upcoming Encounters Date Type Department Care Team (Late st Contact Info) Description 08/23/2024 3:30 PM EDT Office Visit Neurology [facility] [place] [address] [place] [address] Eun Garrison PA-C [address] [facility] [place] [address] 09/07/2024 3:00 PM EDT Laboratory Laboratory [facility] [place] [address] [place] [id number] [address] [place] [address] [address] [facility] [place] [address] 09/07/2024 4:00 PM EDT Office Visit Hematology/Oncology [facility] [address] [facility] [place] [id number] Kristy Moon MD [address] [facility] [place] [address] Health Maintenance Due Date Last Done Comments [...] (HCC) documented in this encounter Care Teams Acquisitions Librarian Relationship Specialty Start Date End Date Amos Buckley MD [address] [facility] [place] [address] PCP - General Family Medicine 11/19/23 documented as of this encounter
== END 2024-03-08 12:23 | disposition home or self-care (01) ==
LOC: ED 07:57 → EDINP 07:57 → SUATTDRO 12:50 → EDINP 13:51 → 2N 14:28